=== PATIENT | female | born 1955 ===

== ENCOUNTER 2019-05-21 19:58 | Inpatient (IN) | payer MEDICARE, SELFPAY | END 2019-05-27 13:40 | disposition home or self-care (01) | DRG 872 | PROVIDERS: Admitting Provider Internal Medicine; Emergency Provider Emergency Medicine; PCP Internal Medicine; Visit Provider Internal Medicine | DX: A40.3 Sepsis due to Streptococcus pneumoniae (principal); N17.9 Acute kidney failure, unspecified; N39.0 Urinary tract infection, site not specified; D72.829 Elevated white blood cell count, unspecified; E11.9 Type 2 diabetes mellitus without complications; I10 Essential (primary) hypertension; E86.0 Dehydration; E78.5 Hyperlipidemia, unspecified; E66.9 Obesity, unspecified; E55.9 Vitamin D deficiency, unspecified; Z23 Encounter for immunization; Z86.73 Personal history of transient ischemic attack (TIA), and cerebral infarction without residual deficits; Z87.891 Personal history of nicotine dependence; Z79.02 Long term (current) use of antithrombotics/antiplatelets; Z68.32 Body mass index [BMI] 32.0-32.9, adult | CPT/HCPCS: 36415; 51701; 71046; 80048; 80053; 80202; 81001; 82565; 83036; 83605; 83735; 84132; 85025; 85610; 85730; 87040; 87077; 87086; 87088; 87186; 90471; 90732; 93306; 96361; 96365; 96375; 97110; 97116; 97161; 97165; 97535; 99285; A9270; G0009; J0131; J0696; J1815; J1956; J3370; J3475; J7030 ==

== ENCOUNTER 2024-06-17 20:29 | Inpatient (IN) | payer MEDICARE, SELFPAY ==
[2024-06-17] VITALS (14 sets, daily range): BP systolic 167–230; BP diastolic 47–73; PULSE 43–99; RESP 14–22; TEMP 36.6; O2SAT 100
--- NOTE | ~2024-06-17 | XR_ITS ---
XR chest 1V portable Ordering provider: Tanvir Kaminski History: 69 years Female with . Complete heart block . Comparison: None. FINDINGS: MEDIASTINUM: The cardiac silhouette is slightly enlarged. LUNGS: No infiltrates, effusions or pneumothorax. Slightly prominent bronchovascular markings in the lower lobes. Atelectatic changes is not excluded. OTHER: No free air under the diaphragm. IMPRESSION: No definite acute cardiopulmonary pathology. Reviewed, dictated and finalized at location A. ORT ASSOCIATE
--- NOTE | ~2024-06-17 | XR_ITS ---
EXAMINATION: XR chest 2V DATE: 06/20/2024 09:34 INDICATION: 24 hour post pacemaker insertion TECHNIQUE: frontal and lateral views of the chest were obtained. COMPARISON: Chest radiograph dated 06/19/2024 FINDINGS: Hyperexpansion of lungs with increased retrosternal clear space and flattening of the diaphragm consi stent with emphysema which is confirmed on review of carotid CT angiogram images dated 12/23/2014. No focal airspace opacities, pulmonary edema, pleural effusion or pneumothorax. The cardiomediastinal si lhouette is normal. Dual lead pacemakerperipheral IV at the distal left upper arm. seen with leads pr ojecting over the expected locations of the right atrium and right ventricle. Moderate to severe thor acic spondylosis. Plain screw fixation at the distal left radius. IMPRESSION: 1. Emphysema. No acute cardiopulmonary disease. Reviewed, dictated and finalized at location B. [facility]
--- NOTE | ~2024-06-17 | XR_ITS ---
EXAMINATION: XR chest 1V portable DATE: 06/19/2024 09:02 INDICATION: Pacemaker insertion TECHNIQUE: frontal view of the chest was obtained. COMPARISON: Chest radiograph dated 06/18/2024 FINDINGS: There is mild eventration along the diaphragm on both the left and right. No focal airspace opacities , pulmonary edema, pleural effusion or pneumothorax. The cardiomediastinal silhouette is normal. Dual lead pacemaker seen with leads projecting over the expected locations of the right atrium and right ventricle. IMPRESSION: 1. Expected appearance of a dual-lead cardiac pacemaker. No acute cardiopulmonary disease. Reviewed, dictated and finalized at location B. UNTS RECEIVABLE ASSISTANT IMPRESSION: 1. Expected appearance of a dual-lead cardiac pacemaker. No acute cardiopulmona ry disease.
[2024-06-17 21:30] LABS: Basophils Percent Auto 0.2 % (0.2-1.2); Eosinophils Absolute Auto 0.1 K/mm3 (0-0.3); Hematocrit 37.6 % (37.0-47.0); Hemoglobin 12.9 g/dL (12.0-15.0); Immature Granulocyte Absolute 0.02 K/mm3 (0.00-0.031); Immature Granulocyte Percent A 0.3 % (0-0.5); Lymphocytes Absolute Auto 2.36 K/mm3 (0.9-3.2); Lymphocytes Percent Auto 38.9 % (18.3-44.2); Mean Corpuscular HGB Conc 34.3 g/dl (32-36); Mean Corpuscular Hemoglobin 30.9 pg (26-34); Mean Corpuscular Volume 90.2 fl (80-100); Mean Platelet Volume 9.6 fl (7.4-10.4); Monocytes Absolute Auto 0.6 K/mm3 (0.1-0.6); Monocytes Percent Auto 10.6 % (2.6-8.5); Platelet Count Result 264 k/mm3 (150-375); Red Blood Count 4.17 M/mm3 (4.2-5.4); Red Cell Distribution Width 15.4 % (11.5-14.5); White Blood Count 6.1 K/mm3 (4.5-10.0)
[2024-06-17 21:41] LABS: Alanine Aminotransferase 15 U/L (6-35); Albumin Level 4.1 g/dL (3.5-5.1); Alkaline Phosphatase 93 U/L (38-126); Anion Gap 4 mmol/L (4-12); Aspartate Amino Transferase 26 U/L (14-36); Bilirubin,Total 0.7 mg/dL (0.2-1.3); Blood Urea Nitrogen 18 mg/dL (7-17); Calcium 9.7 mg/dL (8.4-10.2); Carbon Dioxide 29 mmol/L (22-30); Chloride 103 mmol/L (98-107); Estimated Glomerular Filt Rate 55; Glucose 126 mg/dL (65-110); Magnesium 1.6 mg/dL (1.6-2.3); Potassium 3.9 mmol/L (3.4-5.0); Sodium 136 mmol/L (137-145)
--- NOTE | 2024-06-17 22:04 | ECG_ITS ---
Test Date: 2024-06-17 22:12:19 Measurements Intervals [place] Rate: 41 P: 0 IL: 0 QRS: 25 QRSD: 86 T: 45 QT: 498 QTc: 415 Interpretive Statements SINUS RHYTHM WITH COMPLETE HEART BLOCK JUNCTIONAL ESCAPE RHYTHM DELAYED PRECORDIAL R/S TRANSITION BASELINE ARTIFACT- I, II, AVR, AVL, AVF ABNORMAL ECG No previous ECG available for comparison Electronically Signed On 06-18-2024 05:55:34 BUDGET AND POLICY ANALYST by Lito Sanon D.O.
--- NOTE | 2024-06-17 22:29 | PC.NURSE ---
pt has crash cart bedside and pads applied to pt.
--- NOTE | 2024-06-17 22:35 | ED_ITS ---
HPI - General Adult General Chief complaint: Recheck/Abnormal Lab/Rx Stated complaint: hypertension Time Seen by Provider: 06/17/24 21:10 History of Present Illness HPI narrative: Patient is a 69 year old patient who presents to the emergency department this evening due to concern for an elevated blood pressure. Patient states that she has some despite her numbers prompted her to come to the emergency department with a notice that her blood pressure was elevated. She is currently denying any chest pain, shortness of breath, any headaches, focal weakness, dizziness, blurry visions, numbness and/or tingling. Patient admits that she has been on a blood pressure medications for a long time but seems as though it was not controlling her blood pressure so she was started on another blood pressure medication yesterday amlodipine. Patient admits to a history of hypertension, hyperlipidemia, diabetes mellitus and a previous stroke with no residual deficits. Related Data Home Medications Medication Instructions Recorded Confirmed amlodipine 2.5 mg tablet 2.5 mg PO DAILY 06/18/24 06/18/24 atorvastatin 20 mg tablet 20 mg PO DAILY 06/18/24 06/18/24 chlorthalidone 25 mg tablet 25 mg PO DAILY 06/18/24 06/18/24 clopidogrel 75 mg tablet 75 mg PO DAILY 06/18/24 06/18/24 empagliflozin 10 mg tablet 10 mg PO DAILY 06/18/24 06/18/24 (Jardiance) ramipril 10 mg capsule 10 mg PO DAILY 06/18/24 06/18/24 Allergies Allergy/AdvReac Type Severity Reaction Status Date / Time aspirin Allergy Unknown Anaphylaxis Verified 06/18/24 00:37 codeine Allergy Unknown Anaphylaxis Verified 06/18/24 00:37 latex Allergy Unknown Anaphylaxis Verified 06/18/24 00:37 Penicillins Allergy Unknown Anaphylaxis Verified 06/18/24 00:37 Review of Systems Review of Systems: All systems are reviewed and are negative unless stated otherwise in the HPI. [facility] Family History Family History (Updated 06/18/24 @ 00:28 by Tracy Winston RN) Father Hypertension Cerebrovascular accident History of blood clots Sibling Diabetes mellitus Seizure History of blood clots Mother Colon cancer Social History Social History Smoking packs per day: 0.5 Smoking cigarettes per day: 10.0 Years smoked: 50 Smoking pack-years: 25.00 Smoking status: Current every day smoker Tobacco type: cigarettes Alcohol intake: current Substance use type: marijuana Do You Feel Safe in your Home?: Yes Lack of Transportation: No Lack of Food: Never True Current Housing: I Have Housing Concerned About Future Housing: No Difficulty Paying Gas/Electric Bills: No Difficulty Paying for Meds: No Currently Unemployed: No Education: High School Diploma/GED Difficulty w/ Childcare or Family Care: No Spiritual care concerns: No Exam Narrative: General: Alert, awake, afebrile, in no acute distress. HEENT: PERRL, no rhinorrhea, no post nasal drip, oropharynx clear. Neck: Trachea midline, no JVD, no lymphadenopathy. Cardiovascular: Bradycardic with 3rd degree AV block, no murmurs, rubs or gallops, no peripheral edema. Respiratory: Clear to auscultation bilaterally, no tachypnea, no wheezing, no rhonchi, no rubs, no respiratory distress. Abdomen: Soft, nontender, nondistended, no rebound, no guarding, no peritoneal signs. Musculoskeletal: No joint swelling or deformity, normal muscle tone. Skin: No rashes or petechia, no signs of infection. Psychiatric: Alert and oriented, normal behavior and judgment for situation. Neurological: Alert and oriented to person, place, and time. Follows all commands. No focal deficits, speech is clear and fluent. Course Vital Signs Vital signs: Vital Signs Temperature 97.9 F 06/17/24 20:33 Pulse Rate 46 L 06/17/24 20:33 Respiratory Rate 15 06/17/24 20:33 Blood Pressure 187/57 H 06/17/24 20:33 Pulse Oximetry 100 06/17/24 20:33 Oxygen Delivery Room Air 06/17/24 20:33 Temperature 97.9 F 06/17/24 20:33 Pulse Rate 46 L 06/18/24 00:40 Respiratory Rate 20 06/18/24 00:35 Blood Pressure 184/51 H 06/18/24 00:35 Pulse Oximetry 100 06/18/24 00:35 Oxygen Delivery Room Air 06/17/24 20:33 Medical Decision Making MDM Narrative Medical decision making narrative: The patient was evaluated by myself in the emergency department. History is obtained from patient who is an independent historian along with family members present at bedside and physical exam was performed. External medical records were reviewed at this time. IV was established and pertinent tests were ordered. Patient was administered 20 mg IV hydralazine for an elevated blood pressure. Patient did get nauseous after the IV hydralazine and did have 1 episode of vomiting and was administered 4 mg IV Zofran. On repeat assessment of the patient, patient states that she feels great, denies any current nausea vomiting or abdominal pain, denies any chest pain or shortness of breath, and continues to deny any lightheadedness, dizziness or any symptoms. EKG was obtained which revealed a third-degree AV block at a rate of 41 beats per minute. EKG was independently interpreted by me and is currently pending official cardiology read. Pacer pads were placed on patient at this time. Case was discussed with the on-call reinsurance claims analyst Dr. Ley at 2248 and given that the patient is asymptomatic and hemodynamically stable she does not need an emergent temporary pacemaker. Patient will be made NPO at midnight per her request. Family members present at bedside were updated regarding patient's high-grade AV block. Laboratory results obtained revealing no acute process. Differential diagnosis considerations include hypertensive urgency versus emergency, Comorbidities impacting this visit include history of hypertension diabetes and hyperlipidemia. I have evaluated and discussed social determinants of health with the patient that could potentially impact subsequent diagnosis and treatment plans. On repeat assessment of the patient, reevaluation revealed that the patient is doing well and is in no acute distress. Patient symptoms have remained stable since she arrived to our emergency department. Repeat vital signs were all reviewed and noted to be stable. Differential diagnosis and treatment plan were discussed with the patient at bedside. Patient agrees with discussion and after shared medical decision making agrees with admission. All questions were answered to the patient's satisfaction. Case was discussed with the on-call hospitalist Dr. Calvo who had accepted admission to our IMU. Patient was admitted in stable condition. Vital Signs Vital Signs: Vital Signs Temperature 97.9 F 06/17/24 20:33 Pulse Rate 46 L 06/17/24 20:33 Respiratory Rate 15 06/17/24 20:33 Blood Pressure 187/57 H 06/17/24 20:33 Pulse Oximetry 100 06/17/24 20:33 Oxygen Delivery Room Air 06/17/24 20:33 Temperature 97.9 F 06/17/24 20:33 Pulse Rate 46 L 06/18/24 00:40 Respiratory Rate 20 06/18/24 00:35 Blood Pressure 184/51 H 06/18/24 00:35 Pulse Oximetry 100 06/18/24 00:35 Oxygen Delivery Room Air 06/17/24 20:33 Lab Data 06/17/24 21:24 06/17/24 21:24 Labs: Lab Results 06/17/24 06/17/24 06/17/24 Range/Units 19:55 21:24 21:24 WBC 6.1 (4.5-10.0) K/mm3 RBC 4.17 L (4.2-5.4) M/mm3 Hgb 12.9 (12.0-15.0) g/dL Hct 37.6 (37.0-47.0) % MCV 90.2 (80-100) fl MCH 30.9 (26-34) pg MCHC 34.3 (32-36) g/dl RDW 15.4 H (11.5-14.5) % Plt Count 264 (150-375) k/mm3 MPV 9.6 (7.4-10.4) fl Immature Gran % (Auto) 0.3 (0-0.5) % Neut % (Auto) 49.0 (45.5-73.1) % Lymph % (Auto) 38.9 (18.3-44.2) % Sunflower % (Auto) 10.6 H (2.6-8.5) % Eos % (Auto) 1.0 (0-4.4) % Baso % (Auto) 0.2 (0.2-1.2) % Lymph # (Auto) 2.36 (0.9-3.2) K/mm3 Sunflower # (Auto) 0.6 (0.1-0.6) K/mm3 Eos # (Auto) 0.1 (0-0.3) K/mm3 Baso # (Auto) 0.0 (0.0-0.1) K/mm3 Abs Immat Gran (auto) 0.02 (0.00-0.031) K/mm3 Absolute Neuts (auto) 3.0 (1.3-6.7) K/mm3 Absolute Nucleated RBC 0.000 (0.0-0.012) K/mm3 Nucleated RBC % 0.0 (0.0-0.2) % PT 13.6 (11.1-14.7) Seconds INR 1.0 APTT 29.5 (22.3-36.8) Seconds Sodium 136 L (137-145) mmol/L Potassium 3.9 (3.4-5.0) mmol/L Chloride 103 (98-107) mmol/L Carbon Dioxide 29 (22-30) mmol/L Anion Gap 4 (4-12) mmol/L BUN 18 H (7-17) mg/dL Creatinine 1.00 (0.7-1.0) mg/dL Estim Creat Clear Calc Not Reportable Estimated GFR 55 L (59 - ) Glucose 126 H (65-110) mg/dL Calcium 9.7 (8.4-10.2) mg/dL Magnesium 1.6 Cancelled (1.6-2.3) mg/dL Total Bilirubin 0.7 (0.2-1.3) mg/dL AST 26 (14-36) U/L ALT 15 (6-35) U/L Alkaline Phosphatase 93 (38-126) U/L Troponin I (0.000-0.034) ng/mL Total Protein 8.0 (6.3-8.2) g/dL Albumin 4.1 (3.5-5.1) g/dL 06/17/24 Range/Units 22:14 WBC (4.5-10.0) K/mm3 RBC (4.2-5.4) M/mm3 Hgb (12.0-15.0) g/dL Hct (37.0-47.0) % MCV (80-100) fl MCH (26-34) pg MCHC (32-36) g/dl RDW (11.5-14.5) % Plt Count (150-375) k/mm3 MPV (7.4-10.4) fl Immature Gran % (Auto) (0-0.5) % Neut % (Auto) (45.5-73.1) % Lymph % (Auto) (18.3-44.2) % Sunflower % (Auto) (2.6-8.5) % Eos % (Auto) (0-4.4) % Baso % (Auto) (0.2-1.2) % Lymph # (Auto) (0.9-3.2) K/mm3 Sunflower # (Auto) (0.1-0.6) K/mm3 Eos # (Auto) (0-0.3) K/mm3 Baso # (Auto) (0.0-0.1) K/mm3 Abs Immat Gran (auto) (0.00-0.031) K/mm3 Absolute Neuts (auto) (1.3-6.7) K/mm3 Absolute Nucleated RBC (0.0-0.012) K/mm3 Nucleated RBC % (0.0-0.2) % PT (11.1-14.7) Seconds INR APTT (22.3-36.8) Seconds Sodium (137-145) mmol/L Potassium (3.4-5.0) mmol/L Chloride (98-107) mmol/L Carbon Dioxide (22-30) mmol/L Anion Gap (4-12) mmol/L BUN (7-17) mg/dL Creatinine (0.7-1.0) mg/dL Estim Creat Clear Calc Estimated GFR (59 - ) Glucose (65-110) mg/dL Calcium (8.4-10.2) mg/dL Magnesium (1.6-2.3) mg/dL Total Bilirubin (0.2-1.3) mg/dL AST (14-36) U/L ALT (6-35) U/L Alkaline Phosphatase (38-126) U/L Troponin I < 0.012 (0.000-0.034) ng/mL Total Protein (6.3-8.2) g/dL Albumin (3.5-5.1) g/dL Discharge Plan Discharge Clinical Impression: Heart block AV third degree, Hypertensive urgency Patient Disposition: Still a Patient Condition: Improved Time of Disposition: 23:38
[2024-06-17 22:40] LABS: Prothrombin Time 13.6 Seconds (11.1-14.7)
[2024-06-17 22:41] LABS: Partial Thromboplastin Time 29.5 Seconds (22.3-36.8)
[2024-06-17 22:59] LABS: Troponin I < 0.012 ng/mL (0.000-0.034)
[2024-06-17] MEDS: hydrALAZINE HCL 20 MG/ML VIAL IV PUSH (23:14)
[2024-06-18] VITALS (24 sets, daily range): BP systolic 135–212; BP diastolic 47–89; PULSE 41–93; RESP 16–20; TEMP 36.6–37; O2SAT 95–100; BMI 19.8; BMI 25.2; BMI 24.7
--- NOTE | 2024-06-18 | ECHO_ITS ---
Patient Info Name: Filomena Nunez Age: 69 years : 1955 Gender: Female Ht: 57 in Wt: 114 lbs BSA: 1.46 m2 HR: 45 bpm BP: 135 / 47 mmHg Technical Quality: Fair Exam Date: 06/18/2024 10:17 AM Exam Location: Echo Lab Patient Status: Outpatient Admit Date: 06/18/2024 Staff Ordering Physician: Tanvir Kaminski MD Professor Of Theater: Helen Burgess RDCS Attending Provider: Kamlesh Calvo MD Referring Physician: Gordy SWANN; Exam Type: CA echo doppler color flow Study Info Indications - complete heart block Complete two-dimensional, color flow and Doppler transthoracic echocardiogram is performed. Summary 1. Complete two-dimensional, color flow and Doppler transthoracic echocardiogram is performed. 2. Left ventricular systolic function is hyperdynamic with an estimated ejection fraction of 65-70%. 3. Left ventricular chamber dimension is borderlie enlarged. 4. Right ventricular chamber dimension is normal. 5. Right ventricular systolic function is normal. 6. There is mild aortic valve stenosis with a peak velocity of 274 cm/s, mean gradient of 14 mmHg, and aortic valve area of 1.6 cm2. 7. Mild-moderate aortic valve calcification. 8. There is trace tricuspid valve regurgitation. 9. No pulmonary hypertension, estimated pulmonary arterial systolic pressure is 30 mmHg. 10. There is mild pulmonic regurgitation. Left Ventricle Left ventricular chamber dimension is borderlie enlarged. Left ventricular wall thickness is normal. Left ventricular systolic function is hyperdynamic with an estimated ejection fraction of 65-70%. Right Ventricle Right ventricular chamber dimension is normal. Right ventricular systolic function is normal. Left Atria Left atrial chamber dimension is normal. Right Atria Right atrial chamber dimension is normal. Aortic Valve Mild-moderate aortic valve calcification. There is mild aortic valve stenosis with a peak velocity of 274 cm/s, mean gradient of 14 mmHg, and aortic valve area of 1.6 cm2. Pulmonic Valve There is mild pulmonic regurgitation. Mitral Valve There is no mitral valve regurgitation. Mild annular calcification. Tricuspid Valve There is trace tricuspid valve regurgitation. No pulmonary hypertension, estimated pulmonary arterial systolic pressure is 30 mmHg. Pericardium/Pleural There is no pericardial effusion. Inferior Vena Cava Normal inferior vena cava with <50% collapse upon inspiration consistent with normal right atrial pressure, 5 mmHg. Aorta The aortic root size at the sinus of Valsalva is normal. The prox ascending aorta size is normal. Left Ventricular Outflow Tract Name Value Normal LVOT 2D LVOT Diameter 2.0 cm LVOT Doppler LVOT Peak Gradient 7 mmHg LVOT Mean Gradient 3 mmHg LVOT VTI 30 cm LVOT VTI/AV VTI Ratio 0.5 LVOT Stroke Volume 92 ml LVOT CO 3.7 l/min LVOT CI 2.6 l/min/m2 Pulmonic Valve Name Value Normal PV Doppler PV Peak Gradient 5 mmHg PV Regurgitation Doppler SD Peak End Diastolic Velocity 115 cm/s Mitral Valve Name Value Normal MV Doppler MV Decel [place] 334 cm/s2 MV PHT 100 ms MV Area (PHT) 2.2 cm2 4.0-5.0 MV Diastolic Function MV E Peak Velocity 115 cm/s MV A Peak Velocity 129 cm/s MV E/A 0.9 MV Decel Time 345 ms Tricuspid Valve Name Value Normal TV Regurgitation Doppler TR Peak Velocity 255 cm/s TR Peak Gradient 25 mmHg Estimated PAP/RSVP RA Pressure 5 mmHg <=5 PA Systolic Pressure 30 mmHg <36 RV Systolic Pressure 31 mmHg <36 Aorta Name Value Normal Ascending Aorta Ao Root Diameter (MM) 2.7 cm Ao Root Diam Index (MM) 1.8 cm/m2 Aortic Valve Name Value Normal AV Doppler AV Peak Velocity 274 cm/s AV Peak Gradient 30 mmHg AV Mean Gradient 14 mmHg AV VTI 58 cm AV Area (Cont Eq VTI) 1.6 cm2 >=3.0 AV Area (Cont Eq Chaka) 1.6 cm2 AV Regurgitation 2D LVOT Area 3.1 cm2 Ventricles Name Value Normal LV Dimensions 2D/MM IVS Diastolic Thickness (2D) 0.9 cm 0.6-1.0 IVS Diastole Thickness (MM) 0.8 cm 0.6-0.9 LVID Diastole (2D) 3.7 cm 3.8-5.2 LVID Diastole (MM) 5.3 cm 3.8-5.2 LVIW Diastolic Thickness (2D) 1.0 cm 0.6-0.9 LVIW Diastolic Thickness (MM) 0.9 cm 0.6-0.9 LVID Systole (2D) 2.0 cm 2.2-3.5 LVID Systole (MM) 2.9 cm 2.2-3.5 LVOT Diameter 2.0 cm LV Mass (2D Cubed) 104.14 g 67.00-162.00 LV Mass Index (2D Cubed) 72 g/m2 43-95 Relative Wall Thickness (2D) 0.56 LV Mass (MM Cubed) 160.95 g 67.00-162.00 LV Mass Index (MM Cubed) 111 g/m2 43-95 Relative Wall Thickness (MM) 0.34 LV Fractional Shortening/Ejection Fraction 2D/MM LV Fractional Shortening (2D) 45 % 27-45 LV Fractional Shortening (MM) 46 % 27-45 LV EF (MM Teicholz) 77 % 54-74 LV EF (2D Teicholz) 77 % 54-74 LV Diastolic Volume (4C MOD) 66 ml LV EF (4C MOD) 67 % LV Diastolic Volume (2C MOD) 63 ml LV EF (2C MOD) 70 % LV Diastolic Volume (BP MOD) 65 ml 46-106 LV Diastolic Volume Index (BP MOD) 44 ml/m2 29-61 LV Systolic Volume (BP MOD) 20 ml 14-42 LV Systolic Volume Index (BP MOD) 14 ml/m2 8-24 LV EF (BP MOD) 69 % 54-74 LV Diastolic Length (4C) 7.3 cm LV Systolic Length (4C) 6.0 cm LV Stroke Volume (4C MOD) 44 ml Atria Name Value Normal LA Dimensions LA Dimension (MM) 3.7 cm 2.7-3.8 LA Volume (4C A-L) 40 ml LA Volume (BP A-L) 42 ml RA Dimensions RA Area (4C) 12.6 cm2 <=18.0 Report Signatures
[2024-06-18] MEDS: ONDANSETRON INJ 4 MG/2 ML VIAL IV PUSH (00:14)
--- NOTE | 2024-06-18 07:51 | P.CONCA_ITS ---
Assessment and Plan Assessment and plan (1) Heart block AV third degree: Code(s): I44.2 - Atrioventricular block, complete Status: Acute Plan 69-year-old lady with hypertension and diabetes presenting with complaints of hypertension and found to be in acquired complete heart block which appears to be asymptomatic. She is taking no medication that would influence AV node physiology and so a permanent pacemaker is indicated for acquired complete heart block despite lack of symptoms this is a class 1 indication for pacing. Will arrange for this procedure to be done later today. the procedure done details as well as the risk including infection, hemorrhage, pneumothorax, hemothorax and hemopericardium were discussed in detail. Tanvir Kaminski MD [facility] History of Present Illness History of Present Illness Consult date/time: 06/18/24 07:51 Reason For Visit: Third-degree AV block, Hypertension Narrative: this is a 69-year-old woman I am seeing at the request of the hospitalist today because of complete heart block. She is unknown to me prior to this cons ultation. The patient is says she is not known to have any cardiac problems and came to the emergency room here last evening because she was concerned about high blood pressure. She has a history of hypertension and diabetes and receives her medical care in [place]. There is no evidence she has been hospitalized or treated here at [facility] for anything in the past. She was found in the emergency room to be somewhat hypertensive but also to be bradycardic and in complete heart block. Her ECG shows sinus rhythm with third- degree AV block and a narrow QRS escape rhythm with no pauses being identified. She was admitted to telemetry and with the rhythm has been unchanged through the course of the evening. She is comfortable and asymptomatic this morning. She denies any history of syncope or presyncope or any decline in her ability to perform physical activities. She lives with her son in [place] and does not exercise regularly but she does not feel that her ability to perform activities has declined all. she takes amlodipine and ramipril for her hypertension as well as chlorthalidone there is no medication that would affect AV node function. She takes clopidogrel for reasons that are not stated Review of Systems Constitutional: Constitutional: Reports no additional constitutional complaints Eyes: Eyes: Reports no additional eye complaints ENT: Reports system reviewed and no additional complaints, except as documented Cardiovascular: Cardiovascular: Reports no additional cardiovascular complaints Respiratory: Respiratory: Reports no additional respiratory complaints Gastrointestinal: Gastrointestinal: Reports no additional gastrointestinal complaints Musculoskeletal: Musculoskeletal: Reports no additional musculoskeletal complaints Integumentary/Breasts: Skin/Breast: Reports system reviewed and no additional complaints, except as docu Neurologic: Reports system reviewed and no additional complaints, except as documented Endocrine: Endocrine: Reports no additional endocrine complaints Hematologic/Lymphatic: Hematologic/Lymphatic: Reports no additional hematologic/lymphatic complaints Allergic/Immunologic: Allergic/Immunologic: Reports no additional allergic/immunologic complaints PMFSH Family History Family History (Updated 06/18/24 @ 00:28 by Tracy Winston RN) Father Hypertension Cerebrovascular accident History of blood clots Sibling Diabetes mellitus Seizure History of blood clots Mother Colon cancer Social History Social History Smoking packs per day: 0.5 Smoking cigarettes per day: 10.0 Years smoked: 50 Smoking pack-years: 25.00 Smoking status: Current every day smoker Tobacco type: cigarettes Alcohol intake: current Substance use type: marijuana Do You Feel Safe in your Home?: Yes Lack of Transportation: No Lack of Food: Never True Current Housing: I Have Housing Concerned About Future Housing: No Difficulty Paying Gas/Electric Bills: No Difficulty Paying for Meds: No Currently Unemployed: No Education: High School Diploma/GED Difficulty w/ Childcare or Family Care: No Spiritual care concerns: No Meds Home Medications and Allergies Home Medications Medication Instructions Recorded Confirmed Type amlodipine 2.5 mg tablet 2.5 mg PO DAILY 06/18/24 06/18/24 History atorvastatin 20 mg tablet 20 mg PO DAILY 06/18/24 06/18/24 History chlorthalidone 25 mg tablet 25 mg PO DAILY 06/18/24 06/18/24 History clopidogrel 75 mg tablet 75 mg PO DAILY 06/18/24 06/18/24 History empagliflozin 10 mg tablet 10 mg PO DAILY 06/18/24 06/18/24 History (Jardiance) ramipril 10 mg capsule 10 mg PO DAILY 06/18/24 06/18/24 History Allergies Allergy/AdvReac Type Severity Reaction Status Date / Time aspirin Allergy Unknown Anaphylaxis Verified 06/18/24 00:37 codeine Allergy Unknown Anaphylaxis Verified 06/18/24 00:37 latex Allergy Unknown Anaphylaxis Verified 06/18/24 00:37 Penicillins Allergy Unknown Anaphylaxis Verified 06/18/24 00:37 Vital Signs Vital Signs - 24 hr 06/17/24 20:33 06/17/24 21:48 06/17/24 22:00 Temperature 36.6 C Pulse Rate 46 L 45 L 44 L Respiratory Rate 15 14 17 Blood Pressure 187/57 H 206/73 H 230/65 H Pulse Oximetry 100 100 100 Oxygen Delivery Room Air 06/17/24 22:45 06/17/24 22:48 06/17/24 22:49 Temperature Pulse Rate 43 L 45 L 85 Respiratory Rate 14 17 20 Blood Pressure 199/62 H 200/72 H Pulse Oximetry 100 100 100 Oxygen Delivery 06/17/24 23:12 06/17/24 23:25 06/17/24 23:30 Temperature Pulse Rate 71 88 87 Respiratory Rate 18 20 22 H Blood Pressure Pulse Oximetry 100 100 100 Oxygen Delivery 06/17/24 23:32 06/17/24 23:45 06/17/24 23:47 Temperature Pulse Rate 76 46 L 87 Respiratory Rate 19 16 16 Blood Pressure 218/47 H 182/66 H Pulse Oximetry 100 100 100 Oxygen Delivery 06/17/24 23:52 06/17/24 23:57 06/18/24 00:05 Temperature Pulse Rate 84 99 93 Respiratory Rate 16 17 18 Blood Pressure 181/57 H 167/59 H Pulse Oximetry 100 100 100 Oxygen Delivery 06/18/24 00:07 06/18/24 00:13 06/18/24 00:24 Temperature Pulse Rate 90 75 Respiratory Rate 18 20 Blood Pressure 164/55 H 212/89 H 184/51 H Pulse Oximetry 100 Oxygen Delivery 06/18/24 00:35 06/18/24 01:22 06/18/24 01:23 Temperature 36.6 C Pulse Rate 46 L 71 55 L Respiratory Rate 20 20 Blood Pressure 184/51 H 166/54 H Pulse Oximetry 100 Oxygen Delivery 06/18/24 02:00 06/18/24 04:00 06/18/24 04:00 Temperature Pulse Rate 45 L 45 L 45 L Respiratory Rate 20 Blood Pressure Pulse Oximetry 100 Oxygen Delivery Room Air 06/18/24 05:04 06/18/24 06:00 06/18/24 07:37 Temperature 36.6 C 37.0 C Pulse Rate 76 45 L 76 Respiratory Rate 20 20 Blood Pressure 135/47 L 152/61 H Pulse Oximetry 95 98 Oxygen Delivery 06/18/24 00:40 Temperature Pulse Rate 46 L Respiratory Rate Blood Pressure Pulse Oximetry Oxygen Delivery Exam Const: Other: above pleasant black female appearing about her stated age no distress at this time HENMT: Mouth: Yes moist mucous membranes Eyes: Sclera: sclerae normal Neck: Neck: supple and no JVD Resp: Effort & Inspection: normal respiratory effort Auscultation: clear to auscultation bilaterally Cardio: Rate: bradycardic Rhythm: regular rhythm GI: GI Palp: Yes Soft to palpation Auscultation: normal bowel sounds Skin: General skin exam: normal color Neuro: Other: alert and oriented x3 Extrem: General: normal to inspection Results Labs and Meds 06/17/24 21:24 06/17/24 21:24 Lab results: Cardiac Enzymes 06/17/24 06/17/24 Range/Units 21:24 22:14 AST 26 (14-36) U/L Troponin I < 0.012 (0.000-0.034) ng/mL Coagulation 06/17/24 Range/Units 19:55 PT 13.6 (11.1-14.7) Seconds APTT 29.5 (22.3-36.8) Seconds CBC 06/17/24 Range/Units 21:24 WBC 6.1 (4.5-10.0) K/mm3 RBC 4.17 L (4.2-5.4) M/mm3 Hgb 12.9 (12.0-15.0) g/dL Hct 37.6 (37.0-47.0) % Plt Count 264 (150-375) k/mm3 Lymph # (Auto) 2.36 (0.9-3.2) K/mm3 Real # (Auto) 0.6 (0.1-0.6) K/mm3 Eos # (Auto) 0.1 (0-0.3) K/mm3 Baso # (Auto) 0.0 (0.0-0.1) K/mm3 Comprehensive Metabolic Panel 06/17/24 Range/Units 21:24 Sodium 136 L (137-145) mmol/L Potassium 3.9 (3.4-5.0) mmol/L Chloride 103 (98-107) mmol/L Carbon Dioxide 29 (22-30) mmol/L BUN 18 H (7-17) mg/dL Creatinine 1.00 (0.7-1.0) mg/dL Glucose 126 H (65-110) mg/dL Calcium 9.7 (8.4-10.2) mg/dL AST 26 (14-36) U/L ALT 15 (6-35) U/L Alkaline Phosphatase 93 (38-126) U/L Total Protein 8.0 (6.3-8.2) g/dL Albumin 4.1 (3.5-5.1) g/dL Intake and Output 06/17/24 06/17/24 06/18/24 15:59 23:59 07:59 Other: Intake, Other Source NPO # Unmeasured Voids 2 Patient Weight 06/18/24 23:59 Weight 51.9 kg
--- NOTE | 2024-06-18 18:44 | PM.IMHP ---
H&P: HPI History of Present Illness Date/Time: 06/18/24 18:44 Chief Complaint: Uncontrolled hypertension Narrative: ER-HPI narrative: Patient is a 69 year old patient who presents to the emergency department this evening due to concern for an elevated blood pressure. Patient states that she has some despite her numbers prompted her to come to the emergency department with a notice that her blood pressure was elevated. She is currently denying any chest pain, shortness of breath, any headaches, focal weakness, dizziness, blurry visions, numbness and/or tingling. Patient admits that she has been on a blood pressure medications for a long time but seems as though it was not controlling her blood pressure so she was started on another blood pressure medication yesterday amlodipine. Patient admits to a history of hypertension, hyperlipidemia, diabetes mellitus and a previous stroke with no residual deficits. Patient was seen by dean of admissions and suspect patient had complete heart block and clinically patient is asymptomatic recommended placement of pacemaker which is scheduled for tomorrow, patient denies any chest pain shortness of breath or dizziness, her son is present in the room. Review of Systems Constitutional: Constitutional: Reports no additional constitutional complaints Eyes: Eyes: Reports no additional eye complaints ENT: Reports system reviewed and no additional complaints, except as documented Cardiovascular: Cardiovascular: Reports no additional cardiovascular complaints Respiratory: Respiratory: Reports no additional respiratory complaints Gastrointestinal: Gastrointestinal: Reports no additional gastrointestinal complaints Musculoskeletal: Musculoskeletal: Reports no additional musculoskeletal complaints Integumentary/Breasts: Skin/Breast: Reports system reviewed and no additional complaints, except as docu Neurologic: Reports system reviewed and no additional complaints, except as documented Endocrine: Endocrine: Reports no additional endocrine complaints Hematologic/Lymphatic: Hematologic/Lymphatic: Reports no additional hematologic/lymphatic complaints Allergic/Immunologic: Allergic/Immunologic: Reports no additional allergic/immunologic complaints [facility] Family History Family History (Updated 06/18/24 @ 00:28 by Tracy Winston RN) Father Hypertension Cerebrovascular accident History of blood clots Sibling Diabetes mellitus Seizure History of blood clots Mother Colon cancer Social History Social History Smoking packs per day: 0.5 Smoking cigarettes per day: 10.0 Years smoked: 50 Smoking pack-years: 25.00 Smoking status: Current every day smoker Tobacco type: cigarettes Alcohol intake: current Substance use type: marijuana Do You Feel Safe in your Home?: Yes Lack of Transportation: No Lack of Food: Never True Current Housing: I Have Housing Concerned About Future Housing: No Difficulty Paying Gas/Electric Bills: No Difficulty Paying for Meds: No Currently Unemployed: No Education: High School Diploma/GED Difficulty w/ Childcare or Family Care: No Spiritual care concerns: No Meds Home Medications and Allergies Home Medications Medication Instructions Recorded Confirmed Type amlodipine 2.5 mg tablet 2.5 mg PO DAILY 06/18/24 06/18/24 History atorvastatin 20 mg tablet 20 mg PO DAILY 06/18/24 06/18/24 History chlorthalidone 25 mg tablet 25 mg PO DAILY 06/18/24 06/18/24 History clopidogrel 75 mg tablet 75 mg PO DAILY 06/18/24 06/18/24 History empagliflozin 10 mg tablet 10 mg PO DAILY 06/18/24 06/18/24 History (Jardiance) ramipril 10 mg capsule 10 mg PO DAILY 06/18/24 06/18/24 History Allergies Allergy/AdvReac Type Severity Reaction Status Date / Time aspirin Allergy Unknown Anaphylaxis Verified 06/18/24 00:37 codeine Allergy Unknown Anaphylaxis Verified 06/18/24 00:37 latex Allergy Unknown Anaphylaxis Verified 06/18/24 00:37 Penicillins Allergy Unknown Anaphylaxis Verified 06/18/24 00:37 Vital Signs Vital Signs - 24 hr 06/17/24 20:33 06/17/24 21:48 06/17/24 22:00 Temperature 36.6 C Pulse Rate 46 L 45 L 44 L Respiratory Rate 15 14 17 Blood Pressure 187/57 H 206/73 H 230/65 H Pulse Oximetry 100 100 100 Oxygen Delivery Room Air 06/17/24 22:45 06/17/24 22:48 06/17/24 22:49 Temperature Pulse Rate 43 L 45 L 85 Respiratory Rate 14 17 20 Blood Pressure 199/62 H 200/72 H Pulse Oximetry 100 100 100 Oxygen Delivery 06/17/24 23:12 06/17/24 23:25 06/17/24 23:30 Temperature Pulse Rate 71 88 87 Respiratory Rate 18 20 22 H Blood Pressure Pulse Oximetry 100 100 100 Oxygen Delivery 06/17/24 23:32 06/17/24 23:45 06/17/24 23:47 Temperature Pulse Rate 76 46 L 87 Respiratory Rate 19 16 16 Blood Pressure 218/47 H 182/66 H Pulse Oximetry 100 100 100 Oxygen Delivery 06/17/24 23:52 06/17/24 23:57 06/18/24 00:05 Temperature Pulse Rate 84 99 93 Respiratory Rate 16 17 18 Blood Pressure 181/57 H 167/59 H Pulse Oximetry 100 100 100 Oxygen Delivery 06/18/24 00:07 06/18/24 00:13 06/18/24 00:24 Temperature Pulse Rate 90 75 Respiratory Rate 18 20 Blood Pressure 164/55 H 212/89 H 184/51 H Pulse Oximetry 100 Oxygen Delivery 06/18/24 00:35 06/18/24 01:22 06/18/24 01:23 Temperature 36.6 C Pulse Rate 46 L 71 55 L Respiratory Rate 20 20 Blood Pressure 184/51 H 166/54 H Pulse Oximetry 100 Oxygen Delivery 06/18/24 02:00 06/18/24 04:00 06/18/24 04:00 Temperature Pulse Rate 45 L 45 L 45 L Respiratory Rate 20 Blood Pressure Pulse Oximetry 100 Oxygen Delivery Room Air 06/18/24 05:04 06/18/24 06:00 06/18/24 07:37 Temperature 36.6 C 37.0 C Pulse Rate 76 45 L 76 Respiratory Rate 20 20 Blood Pressure 135/47 L 152/61 H Pulse Oximetry 95 98 Oxygen Delivery 06/18/24 11:21 06/18/24 08:00 06/18/24 08:00 Temperature 36.9 C Pulse Rate 71 43 L Respiratory Rate 18 Blood Pressure 148/55 H Pulse Oximetry 98 Oxygen Delivery Room Air 06/18/24 10:00 06/18/24 12:00 06/18/24 12:00 Temperature Pulse Rate 41 L 43 L Respiratory Rate Blood Pressure Pulse Oximetry Oxygen Delivery Room Air 06/18/24 14:00 06/18/24 15:40 06/18/24 16:00 Temperature 36.7 C Pulse Rate 44 L 43 L 43 L Respiratory Rate 18 Blood Pressure 158/49 H Pulse Oximetry 95 Oxygen Delivery 06/18/24 16:00 06/18/24 00:40 Temperature Pulse Rate 46 L Respiratory Rate Blood Pressure Pulse Oximetry Oxygen Delivery Room Air Exam Narrative: Patient is comfortable, NAD HEENT: eyes are clear and none icteric LUNGS:CTA HEART: RR S1S2 ABD: BS+, Soft and nontender Lower extremities: no edema SKIN: nonjaundiced Neuro: grossly intact. H&P: Results Labs Labs: Short CBC 06/17/24 Range/Units 21:24 WBC 6.1 (4.5-10.0) K/mm3 Hgb 12.9 (12.0-15.0) g/dL Hct 37.6 (37.0-47.0) % Plt Count 264 (150-375) k/mm3 BMP 06/17/24 21:24 Sodium 136 L Potassium 3.9 Chloride 103 Carbon Dioxide 29 BUN 18 H Creatinine 1.00 Glucose 126 H Calcium 9.7 Cardiac Enzymes 06/17/24 Range/Units 22:14 Troponin I < 0.012 (0.000-0.034) ng/mL Liver Function 06/17/24 Range/Units 21:24 Total Bilirubin 0.7 (0.2-1.3) mg/dL AST 26 (14-36) U/L ALT 15 (6-35) U/L Alkaline Phosphatase 93 (38-126) U/L Albumin 4.1 (3.5-5.1) g/dL Assessment and Plan Assessment and plan (1) Heart block AV third degree: Code(s): I44.2 - Atrioventricular block, complete Status: Acute (2) Hypertensive urgency: Code(s): I16.0 - Hypertensive urgency Status: Acute Plan Patient was seen by dean of admissions and suspect patient had complete heart block and clinically patient is asymptomatic recommended placement of pacemaker which is scheduled for tomorrow, patient denies any chest pain shortness of breath or dizziness, her son is present in the room. Hospitalist MIPS Advance Care Plan I have confirmed that the patient's Advanced Care Plan is present, code status is documented, or surrogate decision maker is listed in patient medical record.: Yes
--- NOTE | 2024-06-18 19:34 | PC.NURSE ---
Patient read and signed consent form form for pacemaker placement. Denied having questions.
[2024-06-19] VITALS (20 sets, daily range): BP systolic 147–182; BP diastolic 45–94; PULSE 41–95; RESP 14–18; TEMP 36.6–37.1; O2SAT 98–100
[2024-06-19] MEDS: hydrALAZINE HCL 20 MG/ML VIAL 10 MG IV PUSH (01:54)
[2024-06-19 04:51] LABS: Hematocrit 39.8 % (37.0-47.0); Mean Corpuscular HGB Conc 35.2 g/dl (32-36); Mean Corpuscular Hemoglobin 30.8 pg (26-34); Mean Corpuscular Volume 87.5 fl (80-100); Mean Platelet Volume 9.6 fl (7.4-10.4); Platelet Count Result 263 k/mm3 (150-375); Red Blood Count 4.55 M/mm3 (4.2-5.4); Red Cell Distribution Width 15.3 % (11.5-14.5); White Blood Count 7.2 K/mm3 (4.5-10.0)
[2024-06-19 05:01] LABS: Anion Gap 7 mmol/L (4-12); Blood Urea Nitrogen 16 mg/dL (7-17); Calcium 9.9 mg/dL (8.4-10.2); Carbon Dioxide 24 mmol/L (22-30); Chloride 107 mmol/L (98-107); Estimated Glomerular Filt Rate 55; Glucose 133 mg/dL (65-110); Magnesium 1.6 mg/dL (1.6-2.3); Potassium 3.6 mmol/L (3.4-5.0); Sodium 138 mmol/L (137-145)
--- NOTE | 2024-06-19 07:24 | P.SEDATION_ITS ---
Moderate Sedation Note-Pt Data Patient Data Diagnosis: Acquired complete heart block Present Complaint: hypertension Procedure to be performed/Plan: implantation of permanent pacemaker Allergies Allergy/AdvReac Type Severity Reaction Status Date / Time aspirin Allergy Unknown Anaphylaxis Verified 06/18/24 00:37 codeine Allergy Unknown Anaphylaxis Verified 06/18/24 00:37 latex Allergy Unknown Anaphylaxis Verified 06/18/24 00:37 Penicillins Allergy Unknown Anaphylaxis Verified 06/18/24 00:37 Home Medications Medication Instructions Recorded Confirmed Type amlodipine 2.5 mg tablet 2.5 mg PO DAILY 06/18/24 06/18/24 History atorvastatin 20 mg tablet 20 mg PO DAILY 06/18/24 06/18/24 History chlorthalidone 25 mg tablet 25 mg PO DAILY 06/18/24 06/18/24 History clopidogrel 75 mg tablet 75 mg PO DAILY 06/18/24 06/18/24 History empagliflozin 10 mg tablet 10 mg PO DAILY 06/18/24 06/18/24 History (Jardiance) ramipril 10 mg capsule 10 mg PO DAILY 06/18/24 06/18/24 History Current Medications: Active Medications Amlodipine Besylate (Amlodipine Besylate 2.5 Mg Tablet) 2.5 mg PO DAILY [facility] Atorvastatin Calcium (Atorvastatin 20 Mg Tablet) 20 mg PO DAILY [facility] Chlorthalidone (Chlorthalidone 25 Mg Tablet) 25 mg PO DAILY [facility] Clopidogrel Bisulfate (Clopidogrel Bisulfate 75 Mg Tablet) 75 mg PO DAILY [facility] Empagliflozin (Empagliflozin 10 Mg Tablet) 10 mg PO DAILY [facility] Perflutren Lipid Microsphere (Perflutren Lipid Microspheres 1.5 Ml Vial Diluted To 10 Ml Total Volume) 0 ml IV PUSH ONCE PRN; Protocol PRN Reason: adequate visualization Stop: 06/21/24 07:23 Ramipril (Ramipril 5 Mg Capsule) 10 mg PO DAILY [facility] Sedation/Anesthesia: No previous sedation/anesthesia problems (including family history). [facility] Family History Family History (Updated 06/18/24 @ 00:28 by Tracy Winston RN) Father Hypertension Cerebrovascular accident History of blood clots Sibling Diabetes mellitus Seizure History of blood clots Mother Colon cancer Social History Social History Smoking packs per day: 0.5 Smoking cigarettes per day: 10.0 Years smoked: 50 Smoking pack-years: 25.00 Smoking status: Current every day smoker Tobacco type: cigarettes Alcohol intake: current Substance use type: marijuana Do You Feel Safe in your Home?: Yes Lack of Transportation: No Lack of Food: Never True Current Housing: I Have Housing Concerned About Future Housing: No Difficulty Paying Gas/Electric Bills: No Difficulty Paying for Meds: No Currently Unemployed: No Education: High School Diploma/GED Difficulty w/ Childcare or Family Care: No Spiritual care concerns: No Mod Sed Physical Exam Physical Exam Pre Procedural Exam: Normal: Appearance, Neck, Throat, Airway, Lungs, Heart Size, Neuro Exam and Extremities and Variation: Heart Rate ( heart rate 40, complete heart block) and Heart Rhythm Hours since solid foods: 12 Hours since liquid intake: 12 Mallampati Classification: class II Internal Medicine - PN: Obj Da Vital Signs Vital Signs: Vital Signs - 24 hr 06/18/24 07:37 06/18/24 11:21 06/18/24 08:00 Temperature 37.0 C 36.9 C Pulse Rate 76 71 Respiratory Rate 20 18 Blood Pressure 152/61 H 148/55 H Pulse Oximetry 98 98 Oxygen Delivery Room Air 06/18/24 08:00 06/18/24 10:00 06/18/24 12:00 Temperature Pulse Rate 43 L 41 L 43 L Respiratory Rate Blood Pressure Pulse Oximetry Oxygen Delivery 06/18/24 12:00 06/18/24 14:00 06/18/24 15:40 Temperature 36.7 C Pulse Rate 44 L 43 L Respiratory Rate 18 Blood Pressure 158/49 H Pulse Oximetry 95 Oxygen Delivery Room Air 06/18/24 16:00 06/18/24 16:00 06/18/24 18:00 Temperature Pulse Rate 43 L 44 L Respiratory Rate Blood Pressure Pulse Oximetry Oxygen Delivery Room Air 06/18/24 20:00 06/18/24 20:00 06/18/24 20:00 Temperature 36.8 C Pulse Rate 42 L 42 L 42 L Respiratory Rate 16 16 Blood Pressure 173/57 H Pulse Oximetry 97 97 Oxygen Delivery Room Air 06/18/24 23:51 06/19/24 00:00 06/18/24 22:00 Temperature 36.8 C Pulse Rate 42 L 41 L 42 L Respiratory Rate 16 16 Blood Pressure 182/68 H Pulse Oximetry 97 100 Oxygen Delivery Room Air 06/19/24 00:00 06/19/24 02:00 06/19/24 04:00 Temperature Pulse Rate 41 L 43 L 43 L Respiratory Rate 16 Blood Pressure Pulse Oximetry 100 Oxygen Delivery Room Air 06/19/24 04:00 06/19/24 04:00 06/19/24 06:00 Temperature 37.1 C Pulse Rate 43 L 55 L 41 L Respiratory Rate 16 Blood Pressure 152/45 H Pulse Oximetry 100 Oxygen Delivery Intake/Output Intake/Output: Intake & Output 06/16/24 06/17/24 06/18/24 06/19/24 23:59 23:59 23:59 23:59 Intake Total 880 200 Balance 880 200 Meds/Results Medications: Active Medications Generic Name Dose Route Start Last Admin Trade Name Freq PRN Reason Stop Dose Admin Amlodipine Besylate 2.5 mg 06/19/24 09:00 Amlodipine Besylate 2.5 Mg Tablet PO DAILY [facility] Atorvastatin Calcium 20 mg 06/19/24 09:00 Atorvastatin 20 Mg Tablet PO DAILY [facility] Chlorthalidone 25 mg 06/19/24 09:00 Chlorthalidone 25 Mg Tablet PO DAILY [facility] Clopidogrel Bisulfate 75 mg 06/19/24 09:00 Clopidogrel Bisulfate 75 Mg Tablet PO DAILY [facility] Empagliflozin 10 mg 06/19/24 09:00 Empagliflozin 10 Mg Tablet PO DAILY [facility] Perflutren Lipid Microsphere 0 ml 06/18/24 07:23 Perflutren Lipid Microspheres 1.5 Ml Vial Diluted To 10 Ml Total Volume IV PUSH 06/21/24 07:23 ONCE PRN adequate visualization Protocol Ramipril 10 mg 06/19/24 09:00 Ramipril 5 Mg Capsule PO DAILY [facility] Radiology Results: ITS Impressions Chest X-Ray 06/18/24 08:13 IMPRESSION: No definite acute cardiopulmonary pathology. Labs 06/19/24 04:44 06/19/24 04:44 Labs: Laboratory Results - last 24 hr 06/19/24 04:44 WBC 7.2 RBC 4.55 Hgb 14.0 Hct 39.8 MCV 87.5 MCH 30.8 MCHC 35.2 RDW 15.3 H Plt Count 263 MPV 9.6 Sodium 138 Potassium 3.6 Chloride 107 Carbon Dioxide 24 Anion Gap 7 BUN 16 Creatinine 1.00 Estim Creat Clear Calc Not Reportable Estimated GFR 55 L Glucose 133 H Calcium 9.9 Magnesium 1.6 ASA Classification/Sedation ASA Classification/Sedation ASA Class: II Emergent: No Risks: Risks, benefits and alternatives explained and patient/family accepted plan for sedation. Patient re-evaluated immediately prior to sedation.
--- NOTE | 2024-06-19 07:40 | PC.NURSE ---
Patient went to lab manager at 0720 via stretcher.
--- NOTE | 2024-06-19 08:38 | ECG_ITS ---
Test Date: 2024-06-19 08:53:00 Measurements Intervals [place] Rate: 80 P: 73 CA: 187 QRS: -74 QRSD: 152 T: 84 QT: 448 QTc: 517 Interpretive Statements ATRIAL SENSE- ELECTRONIC VENTRICULAR PACEMAKER BASELINE ARTIFACT- V3 NO FURTHER INTERPRETATION IS POSSIBLE ATYPICAL ECG Compared to ECG 06/17/2024 22:12:19 JUNCTIONAL ESCAPE RHYTHM NO LONGER PRESENT Electronically Signed On 06-19-2024 09:14:59 [employer]ACH [employer] by Lito Sanon D.O.
--- NOTE | 2024-06-19 08:39 | P.PCNCC_ITS ---
Cardiac Cath Procedure Note Date of procedure:: 06/19/24 Performing physician:: Tanvir Kaminski MD Indication:: acquired complete heart block Brief clinical history:: this is a 69-year-old lady who entered the hospital with hypertension she was found to be bradycardic and and acquired complete heart block with which she appears to be asymptomatic Procedure Procedure performed:: implantation of permanent dual-chamber pacemaker Sedation/Medication given:: fentanyl 25 Versed formula case start time 7:56 a.m. case end time 8:37 a.m. sedation provided by Latosha Herrera RN, trained observer Access site:: left subclavian Estimated blood loss:: minimal Procedure note:: patient was brought to the cardiac catheterization lab in the postabsorptive state where the left anterior chest wall was prepped and draped in the normal sterile fashion. 20 cc of lidocaine was infiltrated inferior to the clavicle for local anesthesia. An incision was then made about 1 in below the clavicle from the midclavicular line to the deltopectoral groove. Following this sharp and blunt dissection was used to separate the subcutaneous tissue electrocautery was used to provide cutaneous hemostasis. At the level of the prepectoral fascia blunt dissection was used to create a pacemaker pocket inferior to the incision. After this the pocket was packed with antibiotic soaked 4 x 4. At attention was then turned to venous access. Two 6 Persian SafeSheath kits were used to puncture the subclavian vein the J wires were placed under fluoroscopic visualization to the level of right atrium. Using the 6 Persian safe sheaths the 2 pacemaker leads mentioned below were advanced into the venous circulation at the to the level of the right atrium. Attention was then turned to positioning the ventricular lead. The stylet was withdrawn and a 3 cc syringe was used to form a J-tip stylet which was used to steer lead through the right ventricle out to the PA position. A straight stylet was placed back into the lead it was withdrawn and placed into the right ventricular apical position. The fixation screw was deployed there was excellent pacing and sensing performance noted. A 10 volts stimulation showed no evidence of extracardiac stimulation. After this attention was then turned to positioning the atrial lead. The stylet was withdrawn and a preformed atrial J stylet was placed into the lead it was positioned into the right atrial appendage the fixation screw was deployed and it was fixed into position upon withdrawal of the stylet. Pacing and sensing performs was documented then did using the analyzer and a good lead performance was demonstrated. Once again is a 10 volts stimulus showed no evidence of extracardiac stimulation. Following this the leads were sutured to the base of the pocket using the suture sleeves and 2-0 silk ties. The retained sponge was removed from the pocket the pocket was irrigated with antibiotic infused saline. After this the pacemaker device was connected to the leads using the torque wrench and the entire assembly was placed into the newly created pocket. This was closed in layers using 3-0 Vicryl in interrupted fashion for the subcutaneous tissue and 4-0 Vicryl in a running subcuticular fashion for the skin the wound was dressed with a Aquacel dressing. The procedure was well zeus erated and uncomplicated. It should be mentioned after initiation of electronic AV sequential pacing the patient's intrinsic ventricular rhythm was no longer present and she appears to be pacemaker dependent. Findings:: Patient received a Biotronik dual-chamber pacemaker model Amvia Edge DR-t [id number]. serial number [id number]. device is programmed in the DDD mode lower rate limit 60 upper rate limit 130. The atrial lead is a Biotronik screw-in bipolar lead model Solia S [id number]. serial number [id number]. PP waves are sensed at 7.2 mV threshold 0.7 volts at 0.4 milliseconds impedance 508 Ohms the ventricular lead is a Biotronik screw-in bipolar lead model Solia S [id number]. serial number [id number]. R-waves are not sense with no intrinsic rhythm. Threshold is 0.6 volts at 0.4 milliseconds impedance 723 Ohms. Conclusion:: 1. Successful uncomplicated implantation of permanent dual-chamber pacing system for treatment acquired complete heart block in this 69-year-old lady with hypertension 2. patient noted to become pacemaker dependent following implantation of the device and initiation of AV pacing Tanvir Kaminski MD [facility]
[2024-06-19] MEDS: SODIUM CHLORIDE 0.9% IV 1,000 ML 50 ML IV CONT (09:33)
[2024-06-19] MEDS: ATORVASTATIN 20 MG TABLET PO (10:22)
[2024-06-19] MEDS: CHLORTHALIDONE 25 MG TABLET PO (10:22)
[2024-06-19] MEDS: EMPAGLIFLOZIN 10 MG TABLET PO (10:22)
[2024-06-19] MEDS: amLODIPine BESYLATE 2.5 MG TABLET PO (10:22)
[2024-06-19] MEDS: CLOPIDOGREL BISULFATE 75 MG TABLET PO (10:23)
[2024-06-19] MEDS: ramipriL 5 MG CAPSULE 10 MG PO (10:24)
[2024-06-19 16:41] LABS: Glucose Point of Care 109 mg/dl (65-105)
[2024-06-19] MEDS: ACETAMINOPHEN 325 MG TABLET 650 MG PO (17:58)
--- NOTE | 2024-06-19 18:48 | WPDPN ---
Progress Note: A&P Assessment and Plan (1) Heart block AV third degree: Code(s): I44.2 - Atrioventricular block, complete Status: Acute (2) Hypertensive urgency: Code(s): I16.0 - Hypertensive urgency Status: Acute Plan Patient was seen by quality control analyst and suspect patient had complete heart block and clinically patient is asymptomatic recommended placement of pacemaker which is scheduled for tomorrow, patient denies any chest pain shortness of breath or dizziness, her son is present in the room. today patient had successfully Biotronik dual-chamber pacemaker model, patient has no complaints of CP or shortness of breath, will repeat chest x-ray tomorrow and further recommendation to follow. her son is present in the room. Subjective Date/time seen: 06/19/24 18:48 Interval history: Patient was seen by quality control analyst and suspect patient had complete heart block and clinically patient is asymptomatic recommended placement of pacemaker which is scheduled for tomorrow, patient denies any chest pain shortness of breath or dizziness, her son is present in the room. today patient had successfully Biotronik dual-chamber pacemaker model, patient has no complaints of CP or shortness of breath, will repeat chest x-ray tomorrow and further recommendation to follow. her son is present in the room. Review of Systems Constitutional: Constitutional: Reports no additional constitutional complaints Eyes: Eyes: Reports no additional eye complaints ENT: Reports system reviewed and no additional complaints, except as documented Cardiovascular: Cardiovascular: Reports no additional cardiovascular complaints Respiratory: Respiratory: Reports no additional respiratory complaints Gastrointestinal: Gastrointestinal: Reports no additional gastrointestinal complaints Musculoskeletal: Musculoskeletal: Reports no additional musculoskeletal complaints Integumentary/Breasts: Skin/Breast: Reports system reviewed and no additional complaints, except as docu Neurologic: Reports system reviewed and no additional complaints, except as documented Endocrine: Endocrine: Reports no additional endocrine complaints Hematologic/Lymphatic: Hematologic/Lymphatic: Reports no additional hematologic/lymphatic complaints Allergic/Immunologic: Allergic/Immunologic: Reports no additional allergic/immunologic complaints Exam Narrative: Patient is comfortable, NAD HEENT: eyes are clear and none icteric LUNGS:CTA HEART: RR S1S2 ABD: BS+, Soft and nontender Lower extremities: no edema SKIN: nonjaundiced Neuro: grossly intact. Objective Data Vital Signs Vital Signs: Vital Signs - 24 hr 06/18/24 20:00 06/18/24 20:00 06/18/24 20:00 Temperature 36.8 C Pulse Rate 42 L 42 L 42 L Respiratory Rate 16 16 Blood Pressure 173/57 H Pulse Oximetry 97 97 Oxygen Delivery Room Air 06/18/24 23:51 06/19/24 00:00 06/18/24 22:00 Temperature 36.8 C Pulse Rate 42 L 41 L 42 L Respiratory Rate 16 16 Blood Pressure 182/68 H Pulse Oximetry 97 100 Oxygen Delivery Room Air 06/19/24 00:00 06/19/24 02:00 06/19/24 04:00 Temperature Pulse Rate 41 L 43 L 43 L Respiratory Rate 16 Blood Pressure Pulse Oximetry 100 Oxygen Delivery Room Air 06/19/24 04:00 06/19/24 04:00 06/19/24 06:00 Temperature 37.1 C Pulse Rate 43 L 55 L 41 L Respiratory Rate 16 Blood Pressure 152/45 H Pulse Oximetry 100 Oxygen Delivery 06/19/24 09:03 06/19/24 09:15 06/19/24 09:00 Temperature Pulse Rate 78 85 79 Respiratory Rate 14 18 14 Blood Pressure 155/83 H 147/77 H 181/85 H Pulse Oximetry 100 100 100 Oxygen Delivery Room Air Room Air Room Air 06/19/24 09:30 06/19/24 09:34 06/19/24 09:41 Temperature Pulse Rate 86 81 Respiratory Rate 17 15 Blood Pressure 160/80 H 147/94 H Pulse Oximetry 98 98 99 Oxygen Delivery Room Air Room Air Room Air 06/19/24 10:23 06/19/24 10:23 06/19/24 12:00 Temperature 36.6 C Pulse Rate 95 87 86 Respiratory Rate 16 Blood Pressure 165/80 H Pulse Oximetry 100 Oxygen Delivery 06/19/24 14:00 06/19/24 16:00 06/19/24 16:00 Temperature 36.7 C Pulse Rate 86 82 88 Respiratory Rate 16 Blood Pressure 148/69 H Pulse Oximetry 100 Oxygen Delivery 06/19/24 18:00 06/19/24 18:34 Temperature 36.7 C Pulse Rate 86 82 Respiratory Rate 16 Blood Pressure 162/65 H Pulse Oximetry 100 Oxygen Delivery Intake/Output Intake/Output: Intake & Output 06/16/24 06/17/24 06/18/24 06/19/24 23:59 23:59 23:59 23:59 Intake Total 880 1240 Output Total 200 Balance 880 1040 Meds/Results Medications: Active Medications Generic Name Dose Route Start Last Admin Trade Name Freq PRN Reason Stop Dose Admin Acetaminophen 650 mg 06/19/24 17:39 06/19/24 17:58 Acetaminophen 325 Mg Tablet PO 650 mg Q4H PRN Administration Pain Rated 1-3 Amlodipine Besylate 2.5 mg 06/19/24 09:00 06/19/24 10:22 Amlodipine Besylate 2.5 Mg Tablet PO 2.5 mg DAILY DIMA Administration Atorvastatin Calcium 20 mg 06/19/24 09:00 06/19/24 10:22 Atorvastatin 20 Mg Tablet PO 20 mg DAILY DIMA Administration Chlorthalidone 25 mg 06/19/24 09:00 06/19/24 10:22 Chlorthalidone 25 Mg Tablet PO 25 mg DAILY DIMA Administration Clopidogrel Bisulfate 75 mg 06/19/24 09:00 06/19/24 10:23 Clopidogrel Bisulfate 75 Mg Tablet PO 75 mg DAILY DIMA Administration Dextrose 12.5 gm 06/19/24 10:44 Dextrose 50% 25 Gm/50 Ml Syringe IV PUSH PRN PRN Hypoglycemia Protocol Empagliflozin 10 mg 06/19/24 09:00 06/19/24 10:22 Empagliflozin 10 Mg Tablet PO 10 mg DAILY DIMA Administration Glucagon 1 mg 06/19/24 10:44 Glucagon For Inj 1 Mg Vial IM PRN PRN Hypoglycemia Protocol Glucose 15 gm 06/19/24 10:44 Glucose Oral Gel 15 Gm Of Glucse In 37.5 Gm Tube PO PRN PRN Hypoglycemia Protocol Dextrose 1,000 mls @ 100 mls/hr 06/19/24 10:44 Dextrose 5% 1,000 Ml IVPB PRN PRN Hypoglycemia Protocol Insulin Aspart 2 - 5 units 06/19/24 12:00 06/19/24 16:43 Insulin Aspart (*Bkc) 100 Units/Ml SUB-Q Not Given TIDWM [facility] Protocol Insulin Aspart 1 - 2 units 06/19/24 21:00 Insulin Aspart (*Bkc) 100 Units/Ml SUB-Q HS [facility]1983 Protocol Perflutren Lipid Microsphere 0 ml 06/18/24 07:23 Perflutren Lipid Microspheres 1.5 Ml Vial Diluted To 10 Ml Total Volume IV PUSH 06/21/24 07:23 ONCE PRN adequate visualization Protocol Ramipril 10 mg 06/19/24 09:00 06/19/24 10:24 Ramipril 5 Mg Capsule PO 10 mg DAILY DIMA Administration Radiology Results: ITS Impressions Chest X-Ray 06/19/24 09:40 IMPRESSION: 1. Expected appearance of a dual-lead cardiac pacemaker. No acute cardiopulmonary disease. Labs Labs: Laboratory Results - last 24 hr 06/19/24 06/19/24 04:44 16:39 WBC 7.2 RBC 4.55 Hgb 14.0 Hct 39.8 MCV 87.5 MCH 30.8 MCHC 35.2 RDW 15.3 H Plt Count 263 MPV 9.6 Sodium 138 Potassium 3.6 Chloride 107 Carbon Dioxide 24 Anion Gap 7 BUN 16 Creatinine 1.00 Estim Creat Clear Calc Not Reportable Estimated GFR 55 L Glucose 133 H POC Capillary Glucose 109 H Calcium 9.9 Magnesium 1.6
[2024-06-19 20:09] LABS: Glucose Point of Care 168 mg/dl (65-105)
[2024-06-20] VITALS (9 sets, daily range): BP systolic 123–189; BP diastolic 62–88; PULSE 69–104; RESP 16–166; TEMP 36.6–37; O2SAT 99–100
--- NOTE | 2024-06-20 04:09 | PC.NURSE ---
Spoke to Dr. Calvo again this morning regarding blood pressure 189/71. asymptomatic. Orders received.
[2024-06-20 04:38] LABS: Hematocrit 37.8 % (37.0-47.0); Hemoglobin 13.1 g/dL (12.0-15.0); Mean Corpuscular HGB Conc 34.7 g/dl (32-36); Mean Corpuscular Hemoglobin 30.3 pg (26-34); Mean Corpuscular Volume 87.5 fl (80-100); Mean Platelet Volume 9.7 fl (7.4-10.4); Platelet Count Result 235 k/mm3 (150-375); Red Blood Count 4.32 M/mm3 (4.2-5.4); White Blood Count 5.8 K/mm3 (4.5-10.0)
[2024-06-20 04:48] LABS: Anion Gap 6 mmol/L (4-12); Blood Urea Nitrogen 16 mg/dL (7-17); Calcium 9.9 mg/dL (8.4-10.2); Carbon Dioxide 26 mmol/L (22-30); Chloride 105 mmol/L (98-107); Estimated Glomerular Filt Rate 55; Glucose 120 mg/dL (65-110); Magnesium 1.8 mg/dL (1.6-2.3); Potassium 3.7 mmol/L (3.4-5.0); Sodium 137 mmol/L (137-145)
[2024-06-20] MEDS: hydrALAZINE HCL 20 MG/ML VIAL 10 MG IV PUSH (05:17)
[2024-06-20] MEDS: EMPAGLIFLOZIN 10 MG TABLET PO (08:05)
[2024-06-20] MEDS: ramipriL 5 MG CAPSULE 10 MG PO (08:05)
[2024-06-20] MEDS: CLOPIDOGREL BISULFATE 75 MG TABLET PO (08:05)
[2024-06-20] MEDS: CHLORTHALIDONE 25 MG TABLET PO (08:05)
[2024-06-20] MEDS: amLODIPine BESYLATE 2.5 MG TABLET PO (08:06)
[2024-06-20] MEDS: ATORVASTATIN 20 MG TABLET PO (08:06)
[2024-06-20 10:27] LABS: Glucose Point of Care 145 mg/dl (65-105)
--- NOTE | 2024-06-20 13:30 | P.DS_ITS ---
DS: Summary Time Spent with Patient Time attestation: Total time spent providing and/or coordinating discharge services: DS: Data Data Completed and Pending Labs on day of discharge: Labs from last 24 hours 06/20/24 06/20/24 06/19/24 07:50 04:29 19:52 WBC 5.8 RBC 4.32 Hgb 13.1 Hct 37.8 MCV 87.5 MCH 30.3 MCHC 34.7 RDW 15.0 H Plt Count 235 MPV 9.7 Sodium 137 Potassium 3.7 Chloride 105 Carbon Dioxide 26 Anion Gap 6 BUN 16 Creatinine 1.00 Estim Creat Clear Calc Not Reportable Estimated GFR 55 L Glucose 120 H POC Capillary Glucose 145 H 168 H Calcium 9.9 Magnesium 1.8 06/19/24 16:39 WBC RBC Hgb Hct MCV MCH MCHC RDW Plt Count MPV Sodium Potassium Chloride Carbon Dioxide Anion Gap BUN Creatinine Estim Creat Clear Calc Estimated GFR Glucose POC Capillary Glucose 109 H Calcium Magnesium Discharge Plan Discharge Attending physician on discharge: Kamlesh Calvo V. Consulting providers: Usman Ley Discharging Clinician: Leeann Bradshaw Activity: as tolerated Diet: heart healthy Discharge Instructions: [facility] [address] [place] [id number] DISCHARGE INSTRUCTIONS - POST PACEMAKER Activity 1. No driving until you are seen in the office for your incision check. 2. No lifting, pushing or pulling more than 5 pounds with affected arm for 1 MONTH 3. No lifting affected arm above shoulder height for 1 MONTH 4. Wear immobilizer/sling only if you are unable to remember the above activity restrictions. Recommend that it be worn at night. 5. You may shower AFTER you are seen for incision check on but no tub baths, swimming pool or hot tub for 1MONTH Wound Care 1. Do not attempt to remove the Aquacel dressing. Leave dressing undisturbed until incision check at the office visit. Keep dressing dry. 2. When you are able to shower AFTER you are seen for your incision check in the office do not rub or scrub the incision. Pat dry after shower. NO lotions, powders, creams or ointments are to be applied to the incision 3. A small amount of tenderness, puffiness and bruising around the site is normal. Call if any significant pain, drainage, swelling, or redness around the site 4. Woman: Wear a bra to support the breast tissue and avoid pulling on the incision. Pad the bra strap if necessary with soft smooth cloth. *For any other questions please call the office at [phone]. Office hours are 8AM 4:30PM Sunday through Sunday.Hypertensive Urgency Patient to follow discharge care instruction from her director of casework services and follow up as scheduled, patient to follow up with her primary care provider as soon as possible, patient is instructed if any symptoms redevelop to go to nearest ER. Patient Instructions: Antibiotic Form, Pain Management (GEN), Pacemaker (DC), Pacemaker (GEN) Stand Alone Forms: General Discharge Information Follow-up/Referrals: Usman Ley MD [Physician] - UNKNOWN,DOCTOR [Primary Care Provider] - Discharge Medications: Continued atorvastatin 20 mg tablet 20 mg PO DAILY amlodipine 2.5 mg tablet 2.5 mg PO DAILY clopidogrel 75 mg tablet 75 mg PO DAILY chlorthalidone 25 mg tablet 25 mg PO DAILY ramipril 10 mg capsule 10 mg PO DAILY Jardiance 10 mg tablet 10 mg PO DAILY Date of admission: 06/19/24 08:38 Primary Care Provider: UNKNOWN,DOCTOR Admitting Provider: Kamlesh Calvo V. Attending physician on admission: Kamlesh Calvo V. Condition: Improved
--- NOTE | 2024-06-20 13:54 | PC.NURSE ---
Discharge order received. Discharge instructions discussed with patient. Patient verbalizes understanding. Son is to take her home via private vehicle. IV removed without complications. Tech assisting patient with dressing.
[2024-06-20 15:12] LABS: Glucose Point of Care 117 mg/dl (65-105)
== END 2024-06-20 14:08 | disposition home or self-care (01) | DRG 244 ==
LOC: ANHED 23:39 → ANHIMU 06-18 00:44
PROVIDERS: Specialist; Admitting Provider Internal Medicine; Emergency Provider Emergency Medicine; Visit Provider Family Medicine
PROC: 0JH606Z Insertion of Pacemaker, Dual Chamber into Chest Subcutaneous Tissue and Fascia, Open Approach (ICD-10-PCS; CPT 33208; principal; 2024-06-19 07:30)
DX: I44.2 Atrioventricular block, complete (principal); I16.0 Hypertensive urgency; I10 Essential (primary) hypertension; E78.5 Hyperlipidemia, unspecified; E11.9 Type 2 diabetes mellitus without complications; F17.210 Nicotine dependence, cigarettes, uncomplicated; Z86.73 Personal history of transient ischemic attack (TIA), and cerebral infarction without residual deficits
CPT/HCPCS: 33208; 36415; 71045; 71046; 80048; 80053; 82948; 83735; 84484; 85025; 85027; 85610; 85730; 93005; 93306; 96374; 96375; 99285; A9270; C1779; C1785; G0378; J0360; J2003; J2250; J2405; J3010; J3370; J7030; J7040

== ENCOUNTER 2025-01-29 20:55 | Emergency (ER) | payer MEDICARE, SELFPAY ==
[2025-01-29 20:56] VITALS: BP 119/58; PULSE 84; RESP 13; TEMP 36.3; O2SAT 100
--- OUTSIDE RECORDS SUMMARY | 2025-01-29 20:57 | XMS_ITS | Encounter Summary ---
Author Organization [facility] Address [address] [place] [id number] Phone Care Team Providers Care Lift Builder Whole Name Role Phone Madhu Cheema MD Primary Care Provider [phone] Dianelys Nieves MD Unavailable [phone] Jaron Lee MD Unavailable Freddie Madrid MD Unavailable [phone] Encounter Details Date Type Department Care Team (Late st Contact Info) Description 07/21/[address] [address] Madhu Cheema MD [address] [place] [address] [address] [place] [address] Social History Tobacco Use Types Packs/Day Years Used Date Smoking Tobacco: Every Day Cigarettes 0.3 35 Smokeless Tobacco: Never Alcohol Use Standard Drinks/Week Comments No 0 (1 standard drink = 0.6 oz pur e alcohol) AUDIT-C Answer Date Recorded Q1: How often do you have a drink containing alcohol? Never 06/16/2024 Q2: How many drinks containi ng alcohol do you have on a typical day when you are drinking? Patient does not drink Q3: How often do you have si x or more drinks on one occasion? Never 06/16/2024 PHQ-2 Answer Date Recorded PHQ-2 Total Score (If total score is 3 or more points, staff should administer the PHQ-9) 3 06/16/2024 Exercise Vital Sign Answer Date Recorde d On average, how many days pe r week do you engage in moderate to strenuous exercise (like a brisk walk)? 0 days Minutes of Exercise per Session Not on file 07/11/2021 PHQ-9 Answer Date Recorded PHQ-9 Total Score 3 06/16/2024 Personal Safety Answer Date Recorded Have you ever been in or are you currently in a harmful physical or emotional relationship or is someone making you feel afraid or unsafe? 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 Not on file Not on file Not on file documented as of this encounter Plan of Treatment Scheduled Procedures Name Priority Associated Diagnoses Date/Ti me COLONOSCOPY Open Access History of adenomatous polyp of colon COLONOSCOPY History of colonic polyps COLONOSCOPY History of colonic polyps documented as of this encounter Visit Diagnoses Not on filedocumented in this encounter Care Teams Lift Builder Whole Relationship Specialty Start Date End Date Madhu Cheema MD [facility] [address] [place] [address] [place] [address] PCP - General 10/04/16 Dianelys Nieves MD [address] [place] [address] Referring Physician Plastic Surgery 02/27/18 Jaron Lee MD [address] [place] [address] Consulting Physician Gastroenterology 09/02/18 Freddie Madrid MD [address] [place] [address] Consulting Physician Bone Health 05/29/22 documented as of this encounter
--- OUTSIDE RECORDS SUMMARY | 2025-01-29 20:57 | XMS_ITS | Encounter Summary ---
Author Organization [facility] Healthcare Address [address] [place] [address] Care Team Providers Care Materials Management Clerk Name Role Phone Madhu Cheema MD Primary Care Provider [phone] Dianelys Nieves MD Unavailable [phone] Jaron Lee MD Unavailable [phone] Freddie Madrid MD Unavailable Encounter Details Date Type Department Care Team (Late st Contact Info) Description 06/18/2024 Orders Only [facility] Health Information Management [address] [place] [address] Tanvir Kaminski MD [address] [address] Social History Tobacco Use Types Packs/Day Years [...] on file 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 Gender Identity Not on file Sexual Orientation [...] colonic polyps documented as of this encounter Procedures Procedure Name Priority Date/Time Associated Diagnosis Comments CARDIOLOGY DOCUMENT SCAN 06/18/2024 documented in this encounter Results * Cardiology Document Scan (06/18/2024) Anatomical Region Laterality Modality Other Tanvir Kaminski MD [facility] CARDIAC SERVICES PROC EDURES Final Result documented in this encounter Visit Diagnoses Not on filedocumented in this encounter Care Teams Materials Management Clerk Relationship Specialty Start Date End Date Madhu Cheema MD [facility] [address] [place] [address] [place] [address] PCP - General 10/04/16 Dianelys Nieves MD [address] [place] [address] Referring Physician Plastic Surgery 02/27/18 Jaron Lee MD [address] [place] [address] Consulting Physician Gastroenterology 09/02/18 Freddie Madrid MD [address] [place] [address] Consulting Physician Bone Health 05/29/22 documented as of this encounter
--- OUTSIDE RECORDS SUMMARY | 2025-01-29 20:57 | XMS_ITS | Encounter Summary ---
Author Organization [facility] Healthcare Address [address] [place] [address] Care Team Providers Care Innovation Analyst Name Role Phone Madhu Cheema MD Primary Care Provider [phone] Dianelys Nieves MD Unavailable [phone] Jaron Lee MD Unavailable [phone] Freddie Madrid MD Unavailable [phone] Reason for Visit * Reason Onset Date Comments ready to schedule 07/27/2022 Encounter Details Date Type Department Care Team (Late st Contact Info) Description 07/27/2022 Telephone [facility] Specialty Services [address] [place] [address] Miscellaneous, Not In File ready to schedule Social History Tobacco Use Types Packs/Day Years Used Date Smoking Tobacco: Some Days Cigarettes 0.3 35 Smokeless Tobacco: Never Alcohol Use Standard Drinks/Week Comments No 0 (1 standard drink = 0.6 oz pur e alcohol) AUDIT-C Answer Date Recorded Q1: How often do you have a drink containing alc ohol? Never 05/29/2022 Average Number of Drinks Not on file 022 Frequency of Binge Drinking Not on file 05/01 PHQ-2 Answer Date Recorded PHQ-2 Total Score (If total score is 3 or more points, staff should administer the PHQ-9) 0 05/29/2022 Exercise Vital Sign Answer Date Recorde d On average, how many days pe r week do you engage in moderate to strenuous exercise (like a brisk walk)? 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 Not on file Not on file documented as of this encounter Plan of Treatment Scheduled Procedures Name Priority Associated Diagnoses Date/Ti ia COLONOSCOPY Open Access History of adenomatous polyp of colon COLONOSCOPY History of colonic polyps COLONOSCOPY History of colonic polyps documented as of this encounter Visit Diagnoses Not on filedocumented in this encounter Care Teams Innovation Analyst Relationship Specialty Start Date End Date Madhu Cheema MD [facility] [address] [address] PCP - General 10/04/16 Dianelys Nieves MD [address] [place] [address] Referring Physician Plastic Surgery 02/27/18 Jaron Lee MD [address] [place] [address] Consulting Physician Gastroenterology 09/02/18 Freddie Madrid MD [address] [place] [address] Consulting Physician Bone Health 05/29/22 documented as of this encounter
--- OUTSIDE RECORDS SUMMARY | 2025-01-29 20:57 | XMS_ITS ---
Author Name Auto Generated, Auto Generated Organization [facility] Address [address] [place] [address] Phone [phone] Care Team Providers Care Human Resources Trainer Name Role Phone Blake Solis Unavailable [phone] Functional Status No Results Mental Status No Results Allergies and Intolerances Name Onset Date Reaction Severity codeine (Allergy) SunNov 17 02:16:00 EDT 2017 aspirin (Allergy) SunNov 17 02:16:00 EDT 2017 Latex (Allergy) SunNov 16 22:04:00 EDT 2017 penicillin (Allergy) SunNov 16 22:04:00 EDT 201 8 Medications Medication Directions Start Date End Date oxyCODONE-acetaminophen 5 mg-325 mg tablet 5-325 mg 1-2 tablets TABLET Oral PRN Every 4 Hours SunNov 23 01:00:00 EDT 2017November 27 18:12:00 EDT 2017 clopidogrel 75 mg tablet 75 mg TABLET Or al 1 Time Daily SunNov 26 01:00:00 EDT 2017December 01 01:00:00 EDT 2017 oxyCODONE-acetaminophen 5 mg-325 mg tablet 1-2 tabs Oral PRN Every 4 Hours pain SunNovember 27 18:10:00 EDT 2017December 01 01:00:00 EDT 2017 oxyCODONE-acetaminophen 5 mg-325 mg tablet 1-2 tabs Oral PRN Every 4 Hours pain SunNovember 27 18:15:00 EDT 2017December 01 01:00:00 EDT 2017 Calcium 600 + D(3) 600 mg (1,500 mg)-400 unit tablet 1 tabs TABLET Oral 2 Times Daily SunNov 23 01:00:00 EDT 2017December 01 01:00:00 EDT 2017 multivitamin with minerals tablet 1 tab TABLET Oral 1 Time Daily SunNov 20 14:10:00 EDT 2017December 01 01:00:00 ED2017 cholecalciferol (vitamin D3) 50,000 unit capsule 1 tab CAPSULE Oral 2 Times Weekly for 12 Weeks SunNov 21 09:00:00 ED2017December 01:: ED2017 Colace 100 mg capsule 100mg CAPSULE Oral 2 Times Daily SunNov 19 21:00:00 ED2017December 01:00:00 ED2017 Calcium 600 + D(3) 600 mg (1,500 mg)-400 unit tablet 2 tabs TABLET Oral 1 Time Daily SunNov 20 09:00:00 ED2017Nov 24 12:07:00 ED2017 lisinopril 20 mg tablet 20 mg Oral 1 Time Daily SunNov 17 09:00:00 2017December 01::2017 TUBErsol 5 tub. unit/0.1 mL intradermal injection solution 0.1 ml VIAL (ML) Intradermal 1 Time Weekly for 2 Weeks (PPD) 1st injection upon admission. Read between 48 and 72 hours and give 2nd injection 1 week after the 1st if result is negative. If positive result, proceed with chest x-ray to rule out active disease. Sun Nov 18:00:00 ED2017December 01:: ED2017 TUBErsol 5 tub. unit/0.1 mL intradermal injection solution Read Results VIAL (ML) Other 1 Time Weekly for 2 Weeks Read results between 48-72 hours after 1st and 2nd 1 week apart. If positive do chest x-ray to rule out active disease. SunNov 20 01:00:00 2017December 01::2017 Acetaminophen Extra Strength 500 mg tablet 2 TABLET Oral PRN Every 6 Hours SunNov 16 19:30:00 2017Nov 20 14:11:00 2017 ramipril 10 mg capsule 1 CAPSULE Oral Ev shemar 1 Day SunNov 17 09:00:00 2017Nov 17 08:45:00 2017 metFORMIN ER 500 mg tablet,extended release 24 hr 1 TABLET, EXTENDED RELEASE 24 HR Oral Every 1 Day SunNov 17 09:00:00 2017December 01 01:00:00 2017 traMADol 50 mg tablet 50 mg 1 TABLET Ora l PRN Every 4 Hours SunNov 16 01:00:00 2017Nov 20 14:12:00 EDT 2017 atorvastatin 20 mg tablet 1 TABLET Oral Every 1 Day SunNov 17 09:00:00 EDT 2017December 01 01:00:00 EDT 2017 Acetaminophen Extra Strength 500 mg tablet 1000mg TABLET Oral PRN Every 6 Hours SunNov 20 14:00:00 EDT 2017December 01 01:00:00 EDT 2017 traMADol 50 mg tablet 1 TABLET Oral PRN Every 4 Hours SunNov 20 14:10:00 EDT 2017December 01 01:00:00 EDT 2017 Problems Active Concerns * Displaced bicondylar fracture of left tibia, subsequent encounter for closed fracture with routine healing* Code: * Start Date: SunNov 16 00:00:00 EDT 2017 * End Date: * Text: * Other intraarticular fracture of lower end of left radius, subsequent encounter for closed fracturewith routine healing* Code: * Start Date: SunNov 16 00:00:00 EDT 2017 * End Date: * Text: * Laceration without foreign body, left lower leg, subsequent encounter* Code: * Start Date: SunNov 16 00:00:00 EDT 2017 * End Date: * Text: * Essential (primary) hypertension* Code: * Start Date: SunNov 16 00:00:00 EDT 2017 * End Date: * Text: * Hyperlipidemia, unspecified* Code: * Start Date: SunNov 16 00:00:00 EDT 2017 * End Date: * Text: * Type 2 diabetes mellitus without complications* Code: * Start Date: SunNov 16 00:00:00 EDT 2017 * End Date: * Text: * Personal history of transient ischemic attack (TIA), and cerebral infarction without residual deficits* Code: * Start Date: SunNov 16 00:00:00 EDT 2017 * End Date: * Text: * Age-related osteoporosis with current pathological fracture, unspecified site, subsequent encounterfor fracture with routine healing* Code: * Start Date: SunNov 16 00:00:00 EDT 2017 * End Date: * Text: * Slow transit constipation* Code: * Start Date: SunNov 16 00:00:00 EDT 2017 * End Date: * Text: * Vitamin D deficiency, unspecified* Code: * Start Date: SunNov 16 00:00:00 EDT 2017 * End Date: * Text: Reason for Referral Past Medical History
--- OUTSIDE RECORDS SUMMARY | 2025-01-29 20:57 | XMS_ITS | Encounter Summary ---
Author Organization [facility] Healthcare Address [address] [place] [address] Care Team Providers Care Community Service Coordinator Name Role Phone Madhu Cheema MD Primary Care Provider [phone] Dianelys Nieves MD Unavailable [phone] Jaron Lee MD Unavailable [phone] Freddie Madrid MD Unavailable [phone] Encounter Details Date Type Department Care Team (Late st Contact Info) Description 07/27/2022 Telephone [facility] Specialty Services [address] [place] [address] Miscellaneous, Not In File Social History Tobacco Use Types Packs/Day Years [...] on file 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 Gender Identity Not on file Sexual Orientation [...] on filedocumented in this encounter Care Teams Community Service Coordinator Relationship Specialty Start Date End Date Madhu Cheema MD [address] [place] [address] [address] Melendez [address] [address] PCP - General 10/04/16 Dianelys Nieves MD [address] [place] [address] Referring Physician Plastic Surgery 02/27/18 Jaron Lee MD [address] [place] [address] Consulting Physician Gastroenterology 09/02/18 Freddie Madrid MD [address] [place] [address] Consulting Physician Bone Health 05/29/22 documented as of this encounter
--- OUTSIDE RECORDS SUMMARY | 2025-01-29 20:58 | XMS_ITS | Referral Summary ---
Author Organization [facility] Address [address] [place] [address] Care Team Providers Care Route Inspector Name Role Phone Dewey Cheema MD Primary Care Provider [phone] Dianelys Nieves MD Unavailable [phone] Jaron Lee MD Unavailable [phone] Freddie Madrid MD Unavailable [phone] Encounters Date Type Department Care Team Description 01/28/2025 Telephone [facility] Specialty [facility] [address] [place] [address] 7th [place] [address] Jered Reynolds RN 01/08/2025 1:30 PM CDT Office Visit [address] [place] [phone] Dewey Cheema MD Essential (primary) hypertension (Primary Dx); Type 2 diabetes mellitus with other specified complication, without long-term current use of insulin (HCC); Current smoker; Stage 3a chronic kidney disease (HCC); Chronic cough; Unexplained weight loss; Night sweats; Family history of lung cancer 12/23/[address] [place] [id number] [facility] 5th [place] [address] [place] [address] Freddie Madrid MD Treatment Plan Update (Continue reclast.) 12/23/2024 4:50 PM CDT Lab [facility] Endocrinology Metabolism and Lipid [address] [place] [address] 5th [place] [address] [place] [address] Osteoporosis, unspecified osteoporosis type, unspecified pathological fracture presence 12/23/2024 2:40 PM CDT Office Visit [address] 5th [place] [address] [place] [address] Freddie Madrid MD Osteoporosis, unspecified osteoporosis type, unspecified pathological fracture presence (Primary Dx) 12/23/2024 2:10 PM CDT Clinical Support [address] 5th [place] [address] [place] [address] Osteoporosis, unspecified osteoporosis type, unspecified pathological fracture presence (Primary Dx); Osteopenia, unspecified location 11/25/2024 9:00 AM CDT Ancillary Procedure [facility] [address] [facility] [address] [place] [phone] Cardiac pacemaker in situ; CHB (complete heart block) (HCC) 11/13/2024 Results Follow-Up [facility] Gastroenterology [address] [place] [address] 12th [address] [place] [id number] Yessy Coppola MD Surgical pathology 11/11/2024 12:32 PM CDT Anesthesia Event [facility] Digestive Disease [address] [place] [id number] Mel Sánchez MD Weinzettel, Aaron M., PERSONAL BANKING OFFICER 11/11/2024 12:30 PM CDT - 11/11/2024 1:15 PM CDT Surgery [facility] Digestive Disease [address] [address] Yessy Coppola MD COLON REMOVAL SNARE 11/11/2024 11:17 AM CDT - 11/11/2024 2:25 PM CDT Hospital Encounter [facility] [address] [facility] [address] [place] [address] Yessy Coppola MD History of adenomatous polyp of colon Discharge Disposition: Discharge to home or self care 11/05/2024 Telephone [facility] Gastroenterology [address] [facility] 12th [place] [address] [place] [phone] Rosalba Quach LPN GI Procedure/Anti-Coagu lant 11/04/2024 Telephone [facility] Specialty Services [address] [place] [address] Elham Ball, DIANA GI Preprocedure from Last 3 Months Allergies Active Allergy Reactions Criticality Noted Date Comments Aspirin Swelling Medium Reaction: Swelling, Codeine Other (See comments) Low Reaction: Latex Other (See comments) Low Reaction: Penicillins Itching,Swelling Medium Reaction: Itching, Swelling, Medications cholecalciferol (VITAMIN D-3) 3,000 unit tablet Take 1 tablet (3,000 Units total) by mouth daily Active Easy Comfort Lancets 30 gauge misc Active True Comfort Pro Alcohol Pads pads, medicated Active calcium carbonate (CALCIUM 500 ORAL) Take by mouth Active OneTouch Verio test strips stripIndications:Type 2 diabetes mellitus with other specified complication, without long-term current use of insulin (HCC) MONITOR FSBS ONCE DAILY 100 strip 3 025 Active clopidogreL (PLAVIX) 75 mg tabletIndications:Perso nal history of transient ischemic attack (TIA), and cerebral infarction without residual deficits TAKE 1 TABLET BY MOUTH EVERY DAY 90 tablet 1 025 Active empagliflozin (JARDIANCE) 25 mg tabletIndications:type 2 diabetes mellitus Take 1 tablet (25 mg total) by mouth daily 90 tablet 025 Active varenicline tartrate (CHANTIX KIM) 0.5 mg (11)- 1 mg (42) tabletIndications:Shanda nt smoker Use as directed on package instructio ns, try to quit smoking after 1 week. 53 tablet 025 2024 Active chlorthalidone (HYGROTON) 25 mg tabletIndications:Essen tial (primary) hypertension TAKE 1/2 TABLET BY MOUTH DAILY 45 tablet 1 025 Active ramipriL (ALTACE) 10 mg capsuleIndications:Essjonn ntial (primary) hypertension TAKE 1 CAPSULE BY MOUTH EVERY DAY 90 capsule 1 025 Active atorvastatin (LIPITOR) 20 mg tabletIndications:Pure hypercholesterolemia TAKE 1 TABLET BY MOUTH EVERY DAY 90 tablet 1 025 Active ramipriL (ALTACE) 10 mg capsuleIndications:Esse ntial (primary) hypertension TAKE 1 CAPSULE BY MOUTH EVERY DAY 90 capsule 1 024 2024 Discontinued atorvastatin (LIPITOR) 20 mg tabletIndications:Pure hypercholesterolemia TAKE 1 TABLET BY MOUTH EVERY DAY 90 tablet 1 024 2024 Discontinued chlorthalidone (HYGROTON) 25 mg tabletIndications:Essen tial (primary) hypertension TAKE 1/2 TABLET BY MOUTH DAILY 45 tablet 025 2024 Discontinued Active Problems Problem Noted Date Diagnosed Date Chronic cough 01/08/2025 Assessment & Plan (01/08/2025 1:40 PM CDT): In the setting of chronic smoking, night sweats, weight loss, I recommend further evaluation with lung CT. Because she has not smoked 20+ pack years, she does not meet criteria for the lung cancer screening protocol. Will scheduled standard chest CT. She also has a family HX lung cancer in her mother. Complete heart block 09/01/2024 Visit for wound check 06/25/2024 Cardiac pacemaker in situ 06/19/2024 Overview (06/19/2024): Biotronik Amvia Edge Dual Pacemaker. Dx; CHB. DOI 06/19/2024- Biotronik remote. Stage 3a chronic kidney disease 01/02/2024 Assessment & Plan (01/08/2025 1:17 PM CDT): CKD is stable. She fluctuates between CKD II-III. Continue periodic monitoring Assessment & Plan (06/16/2024 2:45 PM DIRECTOR DESIGN): Mildly worse when last checked. May be in part related to diuretic. Recheck labs today. Unexplained weight loss 12/20/2023 Assessment & Plan (12/20/2023 3:06 PM CDT): 10 lbs over past 6 months. No localizing SX. Benign exam. Decreased diet due to staged dental work she is having done, which is likely contributing to weight loss. Up to date on colonoscpy. Schedule mammogram. Current smoker 09/02/2018 Assessment & Plan (01/08/2025 1:22 PM CDT): Smoking cessation counseling: We discussed the importance of smoking cessation. Therapeutic options discussed included nicotine replacement therapy, Chantix, Wellbutrin, Acupuncture, Hypnosis, and Behavioral therapy. I spent 4 minutes counseling the patient on smoking cessation She was previously unable to afford medication in the distant past. Will try her on chantix.. Assessment & Plan (06/16/2024 2:33 PM DIRECTOR DESIGN): Smoking cessation counseling: We discussed the importance of smoking cessation. Therapeutic options discussed included nicotine replacement therapy, Chantix, Wellbutrin, Acupuncture, Hypnosis, and Behavioral therapy. I spent 4 minutes counseling the patient on smoking cessation Assessment & Plan (12/20/2023 2:54 PM CDT): Smoking cessation counseling: We discussed the importance of smoking cessation. Therapeutic options discussed included nicotine replacement therapy, Chantix, Wellbutrin, Acupuncture, Hypnosis, and Behavioral therapy. I spent 4 minutes counseling the patient on smoking cessation Assessment & Plan (06/04/2023 1:56 PM DIRECTOR DESIGN): Smoking cessation counseling: We discussed the importance of smoking cessation. Therapeutic options discussed included nicotine replacement therapy, Chantix, Wellbutrin, Acupuncture, Hypnosis, and Behavioral therapy. I spent 4 minutes counseling the patient on smoking cessation Assessment & Plan (11/27/2022 2:38 PM CDT): Smoking cessation counseling: We discussed the importance of smoking cessation. Therapeutic options discussed included nicotine replacement therapy, Chantix, Wellbutrin, Acupuncture, Hypnosis, and Behavioral therapy. I spent 4 minutes counseling the patient on smoking cessation Assessment & Plan (05/29/2022 1:32 PM CDT): Smoking cessation counseling: We discussed the importance of smoking cessation. Therapeutic options discussed included nicotine replacement therapy, Chantix, Wellbutrin, Acupuncture, Hypnosis, and Behavioral therapy. I spent 4 minutes counseling the patient on smoking cessation Assessment & Plan (12/12/2021 1:13 PM CDT): Smoking cessation counseling: We discussed the importance of smoking cessation. Therapeutic options discussed included nicotine replacement therapy, Chantix, Wellbutrin, Acupuncture, Hypnosis, and Behavioral therapy. I spent 4 minutes counseling the patient on smoking cessation Assessment & Plan (05/23/2021 1:26 PM CDT): Smoking cessation counseling: We discussed the importance of smoking cessation. Therapeutic options discussed included nicotine replacement therapy, Chantix, Wellbutrin, Acupuncture, Hypnosis, and Behavioral therapy. I spent 4 minutes counseling the patient on smoking cessation Assessment & Plan (11/15/2020 1:12 PM CDT): Smoking cessation counseling: We discussed the importance of smoking cessation. Therapeutic options discussed included nicotine replacement therapy, Chantix, Wellbutrin, Acupuncture, Hypnosis, and Behavioral therapy. I spent 4 minutes counseling the patient on smoking cessation Assessment & Plan (05/17/2020 1:11 PM CDT): Smoking cessation counseling: We discussed the importance of smoking cessation. Therapeutic options discussed included nicotine replacement therapy, Chantix, Wellbutrin, Acupuncture, Hypnosis, and Behavioral therapy. I spent 4 minutes counseling the patient on smoking cessation Assessment & Plan (06/23/2019 1:31 PM DIRECTOR DESIGN): Smoking cessation counseling: We discussed the importance of smoking cessation. Therapeutic options discussed included nicotine replacement therapy, Chantix, Wellbutrin, Acupuncture, Hypnosis, and Behavioral therapy. I spent 4 minutes counseling the patient on smoking cessation Assessment & Plan (05/19/2019 12:08 PM CDT): Smoking cessation counseling: We discussed the importance of smoking cessation. Therapeutic options discussed included nicotine replacement therapy, Chantix, Wellbutrin, Acupuncture, Hypnosis, and Behavioral therapy. I spent 4 minutes counseling the patient on smoking cessation Assessment & Plan (02/10/2019 12:29 PM CDT): Smoking cessation counseling: We discussed the importance of smoking cessation. Therapeutic options discussed included nicotine replacement therapy, Chantix, Wellbutrin, Acupuncture, Hypnosis, and Behavioral therapy. I spent 4 minutes counseling the patient on smoking cessation Assessment & Plan (09/02/2018 11:54 AM DIRECTOR DESIGN): Smoking cessation counseling: We discussed the importance of smoking cessation. Therapeutic options discussed included nicotine replacement therapy, Chantix, Wellbutrin, Acupuncture, Hypnosis, and Behavioral therapy. I spent 4 minutes counseling the patient on smoking cessation Diabetes mellitus 02/25/2018 Assessment & Plan (01/08/2025 1:26 PM CDT): Diabetes is stable. Continue current treatment regimen. Dietary recommendations for ADA diet. Counselled on Regular aerobic exercise. Diabetes will be reassessed in 6 months. Assessment & Plan (09/22/2024 2:02 PM DIRECTOR DESIGN): Diabetes is controlled. Continue current treatment regimen. Dietary recommendations for ADA diet. Counselled on Regular aerobic exercise. Diabetes will be reassessed in 6 months. Assessment & Plan (06/16/2024 2:46 PM DIRECTOR DESIGN): Diabetes is stable. Continue current treatment regimen. Dietary recommendations for ADA diet. Counselled on Regular aerobic exercise. Discussed foot care. Reminded to get yearly retinal exam. Diabetes will be reassessed in 6 months. If kidney function remains low, the will replace metformin with an alternative medication. Assessment & Plan (12/20/2023 2:57 PM CDT): Diabetes is stable. Continue current treatment regimen. Dietary recommendations for ADA diet. Counselled on Regular aerobic exercise. Diabetes will be reassessed in 6 months. Assessment & Plan (06/04/2023 2:22 PM DIRECTOR DESIGN): Diabetes is stable. Continue current treatment regimen. Dietary recommendations for ADA diet. Counselled on Regular aerobic exercise. Discussed foot care. Reminded to get yearly retinal exam. Diabetes will be reassessed in 6 months. Assessment & Plan (11/27/2022 2:39 PM CDT): Diabetes is stable. Continue current treatment regimen. Dietary recommendations for ADA diet. Counselled on Regular aerobic exercise. Diabetes will be reassessed in 6 months. Assessment & Plan (05/29/2022 1:40 PM CDT): Diabetes is stable. Continue current treatment regimen. Dietary recommendations for ADA diet. Advised to monitor FSBS every day Counselled on Regular aerobic exercise. Discussed foot care. Reminded to get yearly retinal exam. Diabetes will be reassessed in 6 months. Assessment & Plan (12/12/2021 1:15 PM CDT): Diabetes is stable. Continue current treatment regimen. Dietary recommendations for ADA diet. Counselled on Regular aerobic exercise. Diabetes will be reassessed in 6 months. Assessment & Plan (05/23/2021 1:50 PM CDT): Diabetes is stable and controlled. Continue current treatment regimen. Dietary recommendations for ADA diet. Regular aerobic exercise. Discussed foot care. Reminded to get yearly retinal exam. Diabetes will be reassessed in 6 months. Assessment & Plan (11/15/2020 1:15 PM CDT): Diabetes is controlled. Continue current treatment regimen. Regular aerobic exercise. Diabetes will be reassessed in 6 months. Assessment & Plan (05/17/2020 1:21 PM CDT): Diabetes is controlled. Continue current treatment regimen. Dietary recommendations for ADA diet. Regular aerobic exercise. Discussed foot care. Reminded to get yearly retinal exam. Diabetes will be reassessed in 6 months. Assessment & Plan (05/19/2019 12:10 PM CDT): Diabetes is controlled. Continue current treatment regimen. Dietary recommendations for ADA diet. Regular aerobic exercise. Diabetes will be reassessed in 6 months. Assessment & Plan (02/10/2019 12:40 PM CDT): Diabetes is controlled. Continue current treatment regimen. Dietary recommendations for ADA diet. Regular aerobic exercise. Diabetes will be reassessed in 3 months. Assessment & Plan (09/02/2018 11:41 AM DIRECTOR DESIGN): Diabetes is controlled. Continue current treatment regimen. Dietary recommendations for ADA diet. Regular aerobic exercise. Discussed foot care. Reminded to get yearly retinal exam. Diabetes will be reassessed in 6 months. Assessment & Plan (02/27/2018 11:49 AM CDT): Diabetes is improving with treatment. Continue current treatment regimen. Diabetes will be reassessed in 6 months. Essential (primary) hypertension 02/25/2018 Assessment & Plan (01/08/2025 1:16 PM CDT): Hypertension is stable Continue current treatment regimen. Regular aerobic exercise. Continue current medications. Blood pressure will be reassessed at the next regular appointment. Assessment & Plan (09/22/2024 1:53 PM DIRECTOR DESIGN): Hypertension is stable Continue current treatment regimen. Regular aerobic exercise. Continue current medications. Blood pressure will be reassessed at the next regular appointment. Assessment & Plan (06/16/2024 2:45 PM DIRECTOR DESIGN): HTN is worsening. Discussed options. Add amlodipine 2.5mg every day. Recheck in 2-3 months. Assessment & Plan (12/20/2023 2:55 PM CDT): Hypertension is stable Continue current treatment regimen. Regular aerobic exercise. Stop smoking. Continue current medications. Blood pressure will be reassessed at the next regular appointment. Assessment & Plan (06/04/2023 1:56 PM DIRECTOR DESIGN): Hypertension is stable Continue current treatment regimen. Regular aerobic exercise. Stop smoking. Continue current medications. Blood pressure will be reassessed at the next regular appointment. Assessment & Plan (11/27/2022 2:37 PM CDT): Hypertension is stable Continue current treatment regimen. Regular aerobic exercise. Stop smoking. Continue current medications. Blood pressure will be reassessed at the next regular appointment. Assessment & Plan (05/29/2022 1:33 PM CDT): Hypertension is stable Continue current treatment regimen. Weight loss. Regular aerobic exercise. Continue current medications. Blood pressure will be reassessed at the next regular appointment. Assessment & Plan (12/12/2021 1:14 PM CDT): Hypertension is stable Continue current treatment regimen. Regular aerobic exercise. Stop smoking. Continue current medications. Blood pressure will be reassessed at the next regular appointment. Assessment & Plan (05/23/2021 1:43 PM CDT): Hypertension is stable Continue current treatment regimen. Weight loss. Regular aerobic exercise. Stop smoking. Continue current medications. Blood pressure will be reassessed at the next regular appointment. Assessment & Plan (11/15/2020 1:14 PM CDT): Hypertension is stable Continue current treatment regimen. Weight loss. Regular aerobic exercise. Continue current medications. Blood pressure will be reassessed at the next regular appointment. Assessment & Plan (05/17/2020 1:07 PM CDT): Hypertension is stable Continue current treatment regimen. Weight loss. Regular aerobic exercise. Continue current medications. Blood pressure will be reassessed at the next regular appointment. Assessment & Plan (06/23/2019 1:30 PM DIRECTOR DESIGN): Hypertension is stable Continue current treatment regimen. Continue current medications. Blood pressure will be reassessed at the next regular appointment. Assessment & Plan (05/19/2019 12:11 PM CDT): Hypertension is controlled Continue current treatment regimen. Regular aerobic exercise. Stop smoking. Continue current medications. Blood pressure will be reassessed at the next regular appointment. Assessment & Plan (02/10/2019 12:39 PM CDT): Hypertension is mild. Continue current treatment regimen. Weight loss. Regular aerobic exercise. Continue current medications. Resume chlorthalidone Blood pressure will be reassessed in 3 months. Assessment & Plan (09/02/2018 11:51 AM DIRECTOR DESIGN): Hypertension is mild. Weight loss. Regular aerobic exercise. Continue current medications. Add Diuretic Blood pressure will be reassessed in 3 months. Assessment & Plan (02/27/2018 11:48 AM CDT): Hypertension is improving with treatment. Continue current treatment regimen. Blood pressure will be reassessed at the next regular appointment. Vitamin D deficiency, unspecified 12/19/2017 Assessment & Plan (02/27/2018 11:43 AM CDT): Recent level was fine. Advised to take OTC vitamin D3 at 2000 units QD. Osteopenia 11/16/2017 Assessment & Plan (06/16/2024 2:50 PM DIRECTOR DESIGN): Up to date on DEXA. Followed by [facility]. Counseled on regular exercise. Assessment & Plan (06/04/2023 2:18 PM DIRECTOR DESIGN): Up to date on DEXA. Followed by [facility]. Counseled on regular exercise. Assessment & Plan (05/29/2022 1:38 PM CDT): Up to date on DEXA. Followed by [facility]. Assessment & Plan (05/23/2021 1:26 PM CDT): Last DEXA 08/23/20. Chronic idiopathic constipation 11/16/2017 Assessment & Plan (06/04/2023 2:14 PM DIRECTOR DESIGN): Chronic. Benign abdominal exam. Check labs. Advised metamucil once daily. Osteoarthritis of cervical spine 12/30/2014 History of ischemic stroke 12/29/2014 Assessment & Plan (06/16/2024 2:30 PM DIRECTOR DESIGN): Optimize CV risks. Residual from CVA including gait and speech. Assessment & Plan (06/09/2024 7:22 AM DIRECTOR DESIGN): >>ASSESSMENT AND PLAN FOR PERSONAL HISTORY OF TRANSIENT ISCHEMIC ATTACK (TIA), AND CEREBRAL INFARCTION WITHOUT RESIDUAL DEFICITS WRITTEN ON 05/29/2022 1:43 PM BY DEWEY CHEEMA MD Paperwork for Disabled parking permit filled out. History of adenomatous polyp of colon 04/23/2012 Assessment & Plan (06/16/2024 2:33 PM DIRECTOR DESIGN): Up to date on colonsocpy Assessment & Plan (06/04/2023 2:07 PM DIRECTOR DESIGN): I placed referral for colonoscopy 11/27/22, family has tried calling to schedule but has not received call back. Pure hypercholesterolemia 12/08/2011 Overview (06/04/2018): Assessment & Plan (06/16/2024 2:30 PM DIRECTOR DESIGN): I discussed ASCVD risk. I spent 15 minutes counseling on CV risk reduction. Our discussion included the followin. Healthy eating habits, including low carbohydrate diet, low starch vegetables. 2. Regular aerobic exercise plan, which can include walking, jogging, treadmill, rowing, swimming biking. I recommend targeting the equivalent of 10K steps daily most days of the week. 3. Optimize BP control. Continue current regimen. Assessment & Plan (06/04/2023 2:22 PM DIRECTOR DESIGN): I discussed ASCVD risk. I spent 15 minutes counseling on CV risk reduction. Our discussion included the followin. Healthy eating habits, including low carbohydrate diet, low starch vegetables. 2. Regular aerobic exercise plan, which can include walking, jogging, treadmill, rowing, swimming biking. I recommend targeting the equivalent of 10K steps daily most days of the week. 3. Optimize BP control. Continue current regimen. Assessment & Plan (05/29/2022 1:21 PM CDT): I discussed ASCVD risk. I spent 15 minutes counseling on CV risk reduction. Our discussion included the followin. Healthy eating habits, including low carbohydrate diet, low starch vegetables. 2. Regular aerobic exercise plan, which can include walking, jogging, treadmill, rowing, swimming biking. I recommend targeting the equivalent of 10K steps daily most days of the week. 3. Optimize BP control. Continue current regimen. Assessment & Plan (05/23/2021 1:26 PM CDT): I spent 15 minutes counseling her on CV risk reduction. Our discussion included the followin. Healthy eating habits, including low carbohydrate diet, low starch vegetables. We discussed intermittent fasting and paleo diets. 2. Regular aerobic exercise plan, which can include walking, jogging, treadmill, rowing, swimming biking. I recommend targeting the equivalent of 20K steps daily most days of the week. 3. Optimize BP control. Continue current regimen. Assessment & Plan (05/17/2020 1:06 PM CDT): I spent 15 minutes counseling her on CV risk reduction. Our discussion included the followin. Healthy eating habits, including low carbohydrate diet, low starch vegetables. We discussed intermittent fasting and paleo diets. 2. Regular aerobic exercise plan, which can include walking, jogging, treadmill, rowing, swimming biking. I recommend targeting the equivalent of 20K steps daily most days of the week. 3. Optimize BP control. 4. Assessment of ASCVD risk and recommendations how to mitigate this risk.discussion was consistent with the 5 A s approach. Continue current regimen. Assessment & Plan (09/02/2018 11:26 AM DIRECTOR DESIGN): I spent 15 minutes counseling her on CV risk reduction. Our discussion included the followin. Healthy eating habits, including low carbohydrate diet, low starch vegetables. We discussed intermittent fasting and paleo diets. 2. Regular aerobic exercise plan, which can include walking, jogging, treadmill, rowing, swimming biking. I recommend targeting the equivalent of 20K steps daily most days of the week. 3. Optimize BP control. 4. Taking aspirin. 5. Assessment of ASCVD risk and recommendations how to mitigate this risk.discussion was consistent with the 5 A s approach. Continue current regimen. Resolved Problems Problem Noted Date Diagnosed Date Resolved Date Carpal tunnel syndrome 04/04/201808/30 Left wrist fracture 12/07/2017 02/07/20 18 Closed fracture of left tibial plateau 11/21/2017 02/06/2018 Displaced bicondylar fractur e of left tibia, subsequent encounter for closed fracture with routine healing 11/16/2017 08/30/2018 Delayed union of distal radius fracture 11/16/2017 08/30/2018 Family history of malignant neoplasm of colon 12/05/19 12 02/06/2018 Obesity 12/05/2011 06/04/2023 Overview (09/02/2018): Assessment & Plan (05/29/2022 1:32 PM CDT): Obesity is unchanged. Discussed the patient's BMI. The BMI is above average; BMI management plan is completed. General weight loss/lifestyle modification strategies discussed (elicit support from others; identify saboteurs; non-food rewards, etc). Assessment & Plan (05/23/2021 1:48 PM CDT): Obesity is unchanged. Discussed the patient's BMI. The BMI is above average; BMI management plan is completed. General weight loss/lifestyle modification strategies discussed (elicit support from others; identify saboteurs; non-food rewards, etc). Counseled on dietary options including mediterranean diet and intermittent fasting Assessment & Plan (11/15/2020 1:12 PM CDT): Obesity is improving with lifestyle modifications. Discussed the patient's BMI. The BMI is above average; BMI management plan is completed. General weight loss/lifestyle modification strategies discussed (elicit support from others; identify saboteurs; non-food rewards, etc). Counseled on dietary options including mediterranean diet and intermittent fasting Assessment & Plan (05/17/2020 1:06 PM CDT): Obesity is unchanged. Discussed the patient's BMI. The BMI is above average; BMI management plan is completed. General weight loss/lifestyle modification strategies discussed (elicit support from others; identify saboteurs; non-food rewards, etc). Counseled on dietary options including mediterranean diet and intermittent fasting Assessment & Plan (02/10/2019 12:29 PM CDT): Obesity is mild. Discussed the patient's BMI. The BMI is above average; BMI management plan is completed. General weight loss/lifestyle modification strategies discussed (elicit support from others; identify saboteurs; non-food rewards, etc). Assessment & Plan (09/02/2018 11:41 AM DIRECTOR DESIGN): Obesity is mild. Discussed the patient's BMI. The BMI is above average; BMI management plan is completed. General weight loss/lifestyle modification strategies discussed (elicit support from others; identify saboteurs; non-food rewards, etc). Immunizations Immunization Administration Dates Next Due Influenza, Quadrivalent, [place] l Culture-based MDCK, Antibiotic Free, Intramuscular 09/02/2018 Influenza, Quadrivalent, Rec ombinant, Egg Free, Preservative Free, Intramuscular 05/29/2022,05/23/2021,05/17/2020,05/19 Influenza, Quadrivalent, Spl it, Pediatric, Preservative Free, Intramuscular 04/06/2016 Influenza, Quadrivalent, Spl it, Preservative Free, Intramuscular 07/01/2015 Influenza, Trivalent, High D ose, Split, Preservative Free, Intramuscular 06/16/2024 Influenza, Trivalent, Preser vative Free, Intramuscular 05/01/2013 Influenza, Trivalent, Split, Preservative Free, Intradermal 05/04/2014,04/23/2012 Pfizer SARS-CoV-2 Monovalent Vaccination (12+ Yrs) PURPLE 02/25/2021,02/04/2021 Pneumococcal Conjugate PCV 13 05/17/2020 Pneumococcal Polysaccharide PPV23 05/23/2021, Tdap 12/05/2011 ZOSTER Recombinant 05/17/2020 Social History Tobacco Use Types Packs/Day Years Used Date Smoking Tobacco: Every Day Cigarettes 0.3 36.1 Started: 12/28/1988 Smokeless Tobacco: Never Tobacco Cessation:Ready to Q uit: Yes; Counseling Given: Yes Alcohol Use Standard Drinks/Week Comments No 0 (1 standard drink = 0.6 oz pur e alcohol) AUDIT-C Answer Date Recorded Q1: How often do you have a drink containing alcohol? Never 11/11/2024 Q2: How many drinks containi ng alcohol do you have on a typical day when you are drinking? Patient does not drink Q3: How often do you have si x or more drinks on one occasion? Never 11/11/2024 PHQ-2 Answer Date Recorded PHQ-2 Total Score [...] making you feel afraid or unsafe? 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 Not on file Not on file Not on file Last Filed Vital Signs Vital Sign Reading Time Taken Comments Blood Pressure 116/62 01/08/2025 1:08 PM CDT Pulse 76 01/08/2025 1:08 PM CDT Temperature 36.7 C (98 F) 01/08/2025 1:08 PM CDT Respiratory Rate 14 11/11/2024 1:40 PM CDT Oxygen Saturation 98% 01/08/2025 1:08 PM CDT Inhaled Oxygen Concentration - - Weight 51.3 kg (113 lb 1.6 oz) 01/08/2025 1:08 P M CDT Height 149.9 cm (4' 11) 01/08/2025 1:08 PM CDT Body Mass Index 22.84 01/08/2025 1:08 PM CDT Plan of Treatment Scheduled Procedures Name Priority Associated Diagnoses Date/Ti me COLONOSCOPY Open Access History of adenomatous polyp of colon COLONOSCOPY History of colonic polyps COLONOSCOPY History of colonic polyps Procedures Procedure Name Priority Date/Time Associated Diagnosis Comments POCT HEMOGLOBIN A1C Routine 01/08/2025 1:20 PM CDT Type 2 diabetes mellitus with other specified complication, without long-term current use of insulin (HCC) PTH Routine 12/23/2024 3:51 PM CDT Osteoporosis, unspecified osteoporosis type, unspecified pathological fracture presence VITAMIN D 25 HYDROXY Routine 12/23/2024 3:51 PM CDT Osteoporosis, unspecified osteoporosis type, unspecified pathological fracture presence COMPREHENSIVE METABOLIC PANEL Routine 12/23/2024 3:51 PM CDT Osteoporosis, unspecified osteoporosis type, unspecified pathological fracture presence DEXA TBS AXIAL SKELETON BONE DENSITY 1 OR MORE SITES Schedule Routine, Read Routine (OP Routine) 12/23/2024 2:51 PM CDT Osteopenia, unspecified location DEVICE CHECK - REMOTE Routine 11/25/2024 9:24 AM CDT Cardiac pacemaker in situ CHB (complete heart block) (HCC) SURGICAL PATHOLOGY Routine 11/11/2024 12:53 PM CDT History of adenomatous polyp of colon ENDO ADD ON COLON BIOPSY 11/11/2024 12:34 PM CDT History of adenomatous polyp of colon COLON REMOVAL SNARE 11/11/2024 12:34 PM CDT History of adenomatous polyp of colon COLONOSCOPY 11/11/2024 11:56 AM CDT POCT GLUCOSE DEVICE Routine 11/11/2024 11:56 AM CDT LIPID PANEL Routine 06/16/2024 3:47 PM DIRECTOR DESIGN Essential (primary) hypertension Type 2 diabetes mellitus with other specified complication, without long-term current use of insulin (HCC) Pure hypercholesterolemia ALBUMIN CREATININE RATIO, URINE Routine 06/16/2024 3:47 PM DIRECTOR DESIGN Type 2 diabetes mellitus with other specified complication, without long-term current use of insulin (HCC) SCREENING MAMMOGRAM BILATERAL W JOHN Schedule Routine, Read Routine (OP Routine) 06/16/2024 2:07 PM DIRECTOR DESIGN Encounter for screening mammogram for malignant neoplasm of breast HEPATITIS C SCREENING Routine 02/27/2018 DIABETES EYE EXAM Routine 08/20/2017 from Last 3 Months or Most Recently Relevant to Health Maintenance Results * (ABNORMAL) POCT hemoglobin A1c (01/08/2025 1:20 PM CDT) Pathologist [facility] Hemoglobin A1C, POC 6.5(A) 4.0 - 5.6 % Blood 01/08/2025 1:20 PM CDT Dewey Cheema MD POINT OF CARE TEST ORDERA BLES Final Result * Vitamin D 25 hydroxy (12/23/2024 3:51 PM CDT) Pathologist [facility] Vitamin D 63.1 20.0 - 100.0 ng/mL [facility] Comment: VITAMIN D DEFICIENCY = LESS THAN or EQUAL TO 20 ng/mL VITAMIN D INSUFFICIENCY = 21 - 29 ng/mL VITAMIN D SUFFICIENT = 30-100 ng/mL Blood 12/23/2024 3:51 PM CDT 12/23/2024 4:11 PM CDT Ernie Zafar MD LAB BLOOD ORDERABLES Final Resul t Performing Organization Address City/[facility]/ZIP Co de Phone Number [facility] * PTH (12/23/2024 3:51 PM CDT) Pathologist [facility] Parathyroid Hormone 41.7 11.6 - 58.8 pg/mL [facility] Comment:PLEASE NOTE: REFEREN CE RANGE UPDATED EFFECTIVE 10/28/24 Blood 12/23/2024 3:51 PM CDT 12/23/2024 4:11 PM CDT Ernie Zafar MD LAB BLOOD ORDERABLES Final Resul t [facility] * Comprehensive metabolic panel (12/23/2024 3:51 PM CDT) [facility] Total Protein 7.8 6.1 - 8.4 g/dL [facility] Albumin 3.7 3.5 - 5.2 g/dL [facility] Calcium 9.8 8.6 - 10.3 mg/dL [facility] BUN 17 7 - 23 mg/dL [facility] Total Bilirubin 0.54 0.20 - 1.40 mg/dL [facility] Alk Phos, Total 121 35 - 129 IU/L [facility] AST (SGOT) 17 11 - 47 IU/L [facility] ALT (SGPT) 15 6 - 53 IU/L [facility] Creatinine 1.01 0.60 - 1.10 mg/dL [facility] Sodium 137 135 - 145 mmol/L [facility] Potassium 4.4 3.3 - 5.1 mmol/L [facility] Chloride 100 95 - 107 mmol/L [facility] CO2 Content 22 21 - 29 mmol/L [facility] Glucose 96 64 - 99 mg/dL [facility] Comment: NONFASTING GLUCOSE RANGE = 64-199 mg/dL FASTING GLUCOSE 64 - 99 = NORMAL FASTING GLUCOSE 100 - 125 = IMPAIRED FASTING GLUCOSE FASTING GLUCOSE >=126 = PROVISIONAL DIAGNOSIS OF DIABETES eGFR 60.3 >60.0 mL/min/1.7 3 m2 [facility] Blood 12/23/2024 3:51 PM CDT 12/23/2024 4:11 PM CDT us Ernie Zafar MD LAB BLOOD ORDERABLES Final Resul t [facility] * Dexa TBS Axial Skeleton Bone Density 1 or more sites (12/23/2024 2:51 PM CDT) Anatomical Region Laterality Modality Wrist, Body N/A Radiographic Mikki ging Narrative 12/24/2024 10:37 AM CDT Patient Name: Filomena Nunez Date of : 1955 Date of scan: 12/23/2024 Bone mineral density was performed on a [employer] Discovery Densitometer. Based on machine cross-calibration and precision studies the least significant changes of this densitometer is 0.024 g/cm2 at the spine, 0.020 g/cm2 at the total proximal femur, and 0.014g/cm2 at the forearm. HISTORY: This is a 69 y.o. postmenopausal female with a history of low bone mass. She reports that she has been smoking cigarettes. She has a 8.8 pack-year smoking history. She has never used smokeless tobacco. Currently on treatment with calcium, vitamin D, and anticoagulants and previously treated with denosumab (Prolia). INDICATIONS: Menopause status, history of prior wrist fracture, and history of low bone mass. FINDINGS: BONE MINERAL DENSITY OF THE LUMBAR SPINE Bone Mineral Density (BMD) of the lumbar spine was measured from L1-L4 and the average density was calculated to be 0.839 gm/cm2. This corresponds to a T-score (standard deviations from the mean of young adults) of -1.9. When compared to the previous study of 12/10/2023 there has been a -0.025 gm/cm (-2.9%) decrease in bone density that is considered significant. BONE MINERAL DENSITY OF THE PROXIMAL FEMUR Bone Mineral Density (BMD) of the right hip total was found to be 0.820 gm/cm2. This corresponds to a T-score standard deviations from the mean of young adults of -1.0. Femoral neck is 0.754 gm/cm2 with a T-score (standard deviations from the mean of young adults) of -0.9. When compared to the previous study of 12/10/2023 there has been a -0.025 gm/cm (-3.0%) decrease in bone density that is considered significant. SUMMARY: Bone mineral density shows evidence of low bone mass at the lumbar spine and moderately increased fracture risk (Osteopenia). There has been a significant decrease in bone density since previous measurement. The lumbar spine Trabecular Bone Score is 1.276 which suggests partially degraded bone microarchitecture compared to the general population. Final decisions regarding diagnostic or therapeutic recommendations should include BMD, TBS, additional clinical risk factors as well the clinical context of the patient. Please see attached TBS results for further details. ADDITIONAL COMMENTS: Postmenopausal Women and Men Over 50: Diagnostic criteria: Osteoporosis: BMD at or below -2.5 T-score; Osteopenia (low bone mass): BMD between -1.0 and -2.5 T-score. If the patient has a history of a fragility fracture, a fracture that occurred with trauma equivalent to a fall from a standing position or less, then the diagnosis is osteoporosis regardless of bone density. The history and data sections of the bone mineral density scan were prepared by Miguel A Singh(Jono) CBDT who is accredited by the International Society of Clinical Densitometry. The overall patient assessment and scan interpretation were performed by Freddie Madrid M.D. who is certified by the International Society of Clinical Densitometry. [id number] us Freddie Madrid MD IMG DXA PROCEDURES Final Result * DEVICE CHECK - REMOTE (11/25/2024 9:24 AM CDT) Anatomical Region Laterality Modality Other Narrative 12/02/2024 1:28 PM CDT Biotronik Amvia Edge Dual Pacemaker. Dx; CHB. DOI 06/19/2024-Gordy. Biotronik remote. Routine DDD Pacemaker Remote. Transmission attached. Battery status: Ok, 100% remaining battery life to MORENO. Stable lead impedances, pacing and sensing thresholds. Presenting rhythm: SIGNAL TOWER DIRECTOR. AP-0%, SIGNAL TOWER DIRECTOR-100%. No AT/AF episodes noted. No Ventricular high rate episodes. Medications: Plavix. See scanned report. Office pacemaker follow up: 09/16/2025. Biotronik remote f/u 02/24/2025. Meron Villanueva RN us Tanvir Kaminski MD [facility] PROC EDURES Final Result * Surgical pathology (11/11/2024 12:53 PM CDT) Tissue (Polyp(s), colon/colorectal, esophageal, gastric) 11/11/2024 12:53 PM CDT Tissue specimen (specimen) (Colon, Biopsy) 11/11/2024 1:07 PM CDT Narrative PATHOLOGY [facility] - 11/12/2024 6:53 PM CDT EPIC results best viewed via link to PDF [facility] Nanci Sk[facility] of Surgical Pathology [address] [facility] [place] [address] Note to Patients: This report may contain a detailed description of human tissue sent by a health care provider to the laboratory for pathologic evaluation. The content of this report is essential for diagnosis and may provide important critical findings. This information may be unfamiliar to patients to review without a medical professional present. It is advised that the patient review this report in the presence of a health care provider who can answer questions and explain the details. SURGICAL PATHOLOGY REPORT FINAL Patient Name: FILOMENA NUNEZ Gender: F : 1955 (Age: 69) Address: [address] [place] [id number] Hospital #: [id number] Taken:11/11/2024 Received:11/11/2024 Reported: 11/12/2024 Patient Type: [facility] Service: Gastro Location: Physician(s): Marvin Villa MD Thomas J Bartholet, M.D. Diagnosis: A. Colon, cecum, polypectomy: - Fragments of tubular adenoma. B. Colon, sigmoid, abnormal mucosa, biopsy: - Colonic mucosa with prolapse associated changes. - Negative for dysplasia. [facility]/11/12/2024 11:33 By this signature, I attest that the above diagnosis is based upon my personal examination of the slides(and/or other material indicated in the diagnosis). Ciaran Carvalho MD, PHD Report Electronically Reviewed and Signed Out By Ciaran Carvalho MD, PHD 11/12/2024 18:53:00 History: The patient is a 69-year-old woman presenting with a history of adenomatous polyp of colon. Operative procedure: Colon removal snare with biopsy. Specimen(s) Received: A: Cecum B: Abnormal mucosa of sigmoid colon Gross Description: Received in two formalin jars labeled with the patient's identifiers. A. Labeled cecum and consists of multiple lynn-red polypoid fragment(s) of soft tissue measuring 1.5 x 0.9 x 0.4 cm in aggregate. Also included are multiple fragments of possible vegetable material. Labeled A1. Jar 0. B. Labeled abnormal mucosa of sigmoid colon and consists of multiple red-lynn fragment(s) of soft tissue measuring 0.9 x 0.5 x 0.2 cm in aggregate. Labeled B1. Jar 0. sxst/11/11/2024 15:30 PA(s): Mae Mack By this signature, I attest that the above diagnosis is based upon my personal examination of the slides(and/or other material). Addenda/Procedures The performance characteristics of some immunohistochemical stains, fluorescence in-situ hybridization tests and immunophenotyping by flow cytometry cited in this report (if any) were determined by the Surgical Pathology and Flow Cytometry Departments at [facility] as part of an ongoing water quality analyst program and in compliance with federally mandated regulations drawn from the Clinical Laboratory Improvement Act of 1988 (CLIA '88). Some of these tests rely on the use of analyte specific reagents and are subject to specific labeling requirements by the US Food and Drug Administration. Such diagnostic tests may only be performed in a facility that is certified by the Department of Health and Human Services as a high complexity laboratory under CLIA '88. The FDA has determined that such clearance or approval is not necessary. This test is used for clinical purposes. It should not be regarded as investigational or for research. Nevertheless, federal rules concerning the medical use of analyte specific reagents require that the following disclaimer be attached to the report: This test was developed and its performance characteristics determined by the Surgical Pathology and Flow Cytometry Departments of [facility]. It has not been cleared or approved by the U. S. Food and Drug Administration. IMAGES AND SCANNED DOCUMENTS, IF INCLUDED, ONLY VIEWABLE IN PDF VERSION OF REPORT Yessy Huang MD LAB PATHOLOGY MACIE CRUZ Final Result PATHOLOGY [facility] 3rd Floor [place], [place] [phone] * Colonoscopy (11/11/2024 11:56 AM CDT) Anatomical Region Laterality Modality Other Narrative Procedure Note Yessy Huang MD - 11/11/2024 11:56 AM CDT GI ENDOSCOPY [facility] Patient Name: Filomena Nunez Procedure Date: 11/11/2024 11:56 AM Date of : 1955 Admit Type: Outpatient Age: 69 Gender: Female Attending MD: Marvin Henriquez Room: [facility] ENDOSCOPY ROOM 3 Note Status: Finalized Procedure: Colonoscopy Indications: High risk colon cancer surveillance: Personalhistory of adenoma (10 mm or greater in size) Referring MD: Dewey Cheema M.D. Providers: Yessy Huang M.D., Alonso Ramos M.D. Medicines: Monitored Anesthesia Care Complications: No immediate complications. Estimated Blood Loss: Estimated blood loss was minimal. Procedure: Pre-Anesthesia Assessment: - Prior to the procedure, a History and Physicalwas performed, and patient medications, allergies and sensitivities were reviewed. The patient'stolerance of previous anesthesia was reviewed. - Immediately prior to administration ofmedications, the patient was re-assessed for adequacy to receive sedatives. - The risks and benefits of the procedure and the sedation options and risks were discussed with the patient. All questions were answered and informed consent was obtained. The benefits, risks and alternatives of theprocedure and sedation were discussed and informed consentwas obtained. All questions were answered. Please referto the signed informed consent document in the medical record. The scope was passed under direct vision.The CF [id number] endoscope was introduced through the anus and advanced to the cecum, identified by appendiceal orifice and ileocecal valve. The colonoscopy was performed without difficulty. The patient tolerated the procedure well. The qualityof the bowel preparation was evaluated using the BBPS ([place] Bowel Preparation Scale) with scores of:Right Colon = 2 (minor amount of residual staining, small fragments of stool and/or opaque liquid, but mucosa seen well), Transverse Colon = 2 (minor amount of residual staining, small fragments of stool and/or opaque liquid, but mucosa seen well) and Left Colon= 3 (entire mucosa seen well with no residualstaining, small fragments of stool or opaque liquid). Thetotal BBPS score equals 7. The bowel preparation used was GoLYTELY via split dose instruction. The quality of the bowel preparation was good. Findings: The perianal and digital rectal examinations were normal. Non-bleeding internal hemorrhoids were found during retroflexion. The hemorrhoids were medium-sized. Multiple small and large-mouthed diverticula were found in the entire colon. A localized area of moderately thickened folds of the prolapsedmucosa was found in the sigmoid colon. Biopsies were taken with a coldforceps for histology. An 8 mm polyp was found in the cecum. The polyp was sessile. Thepolyp was removed with a cold snare. Resection and retrieval werecomplete. The exam was otherwise without abnormality. Impression: - Non-bleeding internal hemorrhoids. - Diverticulosis in the entire examined colon. - Thickened folds of the prolapsed mucosa in the sigmoid colon. Biopsied. - One 8 mm polyp in the cecum, removed with a cold snare. Resected and retrieved. - The examination was otherwise normal. Recommendation: - Await pathology results. - Resume Plavix (clopidogrel) at prior dosetomorrow. - Repeat colonoscopy in 5 years for surveillance. - Return to referring physician as previously scheduled. - We performed biopsies during your proceduretoday. If you do not receive the result from my office in7 business days, please contact my office at [phone]. Attending Participation: I was present and participated during the entire procedure, including non-storm portions. Electronically signed by Yessy Huang MD Ysesy Huang M.D. 11/11/2024 1:27:50 PM . Number of Addenda: 0 Note Initiated On: 11/11/2024 11:56 AM us Yessy Huang MD ENDOSCOPY PROCEDUR ES Final Result * POCT glucose (11/11/2024 11:56 AM CDT) Glucose, POC 110 70 - 199 mg/dL Blood 11/11/2024 11:5 6 AM CDT 11/11/2024 11:56 AM CDT us Yessy Huang MD LAB POCT ORDERABLE S - DEVICE Final Result Performing Organization Address City/[facility] Co de Phone Number [facility] [place] [address] * Albumin Creatinine Ratio, Urine (06/16/2024 3:47 PM DIRECTOR DESIGN) Creatinine ur 172.7 Not Estab. mg/dL [facility] - 01 Microalbumin, ur 14.0 Not Estab. ug/mL [facility] - 01 Microalbumin/cre at ratio 8 0 - 29 mg/g creat [facility] - 01 Comment: Normal: 0 - 29 Moderately increased: 30 - 300 Severely increased: >300 Urine 06/16/2024 3:47 PM DIRECTOR DESIGN 06/16/2024 Narrative [facility] - 06/17/2024 12:12 PM DIRECTOR DESIGN Performed at: [facility] Lab[address] [id number] Central Service Technician: Surendra Vale PhD, Phone: [phone] us Dewey Cheema MD LAB URINE ORDERABLES Kate l [facility] - 01 * Lipid panel (06/16/2024 3:47 PM DIRECTOR DESIGN) Cholesterol 166 100 - 199 mg/dL [facility] - 01 Triglycerides 83 0 - 149 mg/dL [facility] - 01 HDL Cholesterol 53 >39 mg/dL [facility] - 01 VLDL 16 5 - 40 mg/dL [facility] - 01 LDL, calculated 97 0 - 99 mg/dL [facility] - 01 Blood 06/16/2024 3:47 PM DIRECTOR DESIGN 06/16/2024 Narrative [facility] - 06/17/2024 8:19 AM DIRECTOR DESIGN Performed at: - [address] [id number] Central Service Technician: Surendra Vale PhD, Phone: [phone] us Dewey Cheema MD LAB BLOOD ORDERABLES Kate l Result Performing Organization Address [facility] Co de Phone Number [facility] - 01 * Screening Mammogram Bilateral W John (06/16/2024 2:07 PM DIRECTOR DESIGN) Anatomical Region Laterality Modality Breast Bilateral Mammography Narrative 06/17/2024 4:05 PM DIRECTOR DESIGN Mammogram Technique: Bilateral Digital Breast Tomosynthesis, Bilateral C-view 2D Screening mammogram. Views obtained: bilateral craniocaudal and bilateral mediolateral oblique. Computer Aided Detection was performed. Mammogram Findings: The present examination has been compared to prior imaging studies performed at [facility] on 10/04/2016, 06/23/2019 and 08/15/2021. The breasts are heterogeneously dense, which may obscure small masses. There is no suspicious abnormality in either breast. Impression: There is no mammographic evidence of malignancy. Annual screening mammography is recommended. OVERALL FINAL ASSESSMENT: BI-RADS CATEGORY 1: Negative. Procedure Note Brian Reed MD - 06/17/2024 Mammogram Technique: Bilateral Digital Breast Tomosynthesis, Bilateral C-view 2D Screening mammogram. Views obtained: bilateral craniocaudal and bilateral mediolateral oblique. Computer Aided Detection was performed. Mammogram Findings: The present examination has been compared to prior imaging studies performed at [facility] on 10/04/2016, 06/23/2019 and 08/15/2021. The breasts are heterogeneously dense, which may obscure small masses. There is no suspicious abnormality in either breast. Impression: There is no mammographic evidence of malignancy. Annual screening mammography is recommended. OVERALL FINAL ASSESSMENT: BI-RADS CATEGORY 1: Negative. Dewey Cheema MD IMG MAMMO PROCEDURES Kate l Result * HEPATITIS C SCREENING (02/27/2018) HEP C Normal Historical Provider HEALTH MAINTENANCE Final Result * DIABETES EYE EXAM (08/20/2017) Diabetic Eye Exam Abnormal Historical Provider HEALTH MAINTENANCE Final Result from Last 3 Months or Most Recently Relevant to Health Maintenance Insurance [facility] ADVANTAGE [facility] REF [employer] CHOICE MEDICARE PPO [employer] CHOICE MEDICARE PPO [employer] CHOICE MEDICARE PPO Advance Directives For more information, please contact: [phone] * Full Code (Latest Code Status on File) Date Activated Date Inactivated Comments 11/11/2024 11:37 AM 11/11/2024 6:25 PM * Full Code Date Activated Date Inactivated Comments 10/15/2023 2:27 PM 10/15/2023 9:31 PM Care Teams Route Inspector Relationship Specialty Start Date End Date Dewey Cheema MD [facility] [address] Melendez [address] [id number] PCP - General 10/04/16 Dianelys Nieves MD [address] [place] [address] Referring Physician Plastic Surgery 02/27/18 Jaron Lee MD [address] [place] [address] Consulting Physician Gastroenterology 09/02/18 Freddie Madrid MD [address] [place] [address] Consulting Physician Bone Health 05/29/22
--- OUTSIDE RECORDS SUMMARY | 2025-01-29 20:58 | XMS_ITS | Encounter Summary ---
Author Organization [facility] Healthcare Address [address] [place] [address] Care Team Providers Care Machine Hose Cutter Name Role Phone Madhu Cheema MD Primary Care Provider [phone] Dianelys Nieves MD Unavailable [phone] Jaron Lee MD Unavailable [phone] Freddie Madrid MD Unavailable [phone] Encounter Details Date Type Department Care Team (Late st Contact Info) Description 01/28/2025 Telephone [facility] [address] [facility] Advanced Medicine [address] [place] [address] Jered Reynolds, RN Social History Tobacco Use Types Packs/Day Years Used Date Smoking Tobacco: Every Day Cigarettes 0.3 36.1 Started: 12/28/1988 Smokeless Tobacco: Never Alcohol Use Standard Drinks/Week [...] on file Legal Sex Female 11:26 PM [employer] Gender Identity Not on file Sexual Orientation Not on file 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 documented in this encounter Plan of Treatment Scheduled Procedures Name Priority Associated Diagnoses Date/Ti me COLONOSCOPY Open Access History of adenomatous polyp of colon COLONOSCOPY History of colonic polyps COLONOSCOPY History of colonic polyps documented as of this encounter Visit Diagnoses Not on filedocumented in this encounter Care Teams Machine Hose Cutter Relationship Specialty Start Date End Date Madhu Cheema MD [address] [place] [address] DR Nora SIMON [address] [place] [id number] PCP - General 10/04/16 Dianelys Nieves MD [address] [place] [address] Referring Physician Plastic Surgery 02/27/18 Jaron Lee MD [address] [place] [address] Consulting Physician Gastroenterology 09/02/18 Freddie Madrid MD [address] [place] [address] Consulting Physician Bone Health 05/29/22 documented as of this encounter
--- OUTSIDE RECORDS SUMMARY | 2025-01-29 20:58 | XMS_ITS | Clinical Summary ---
Author Organization [facility] al Address [address] [place] [address] Care Team Providers Care Sewer Inspector Name Role Phone Dewey Cheema MD Primary Care Provider [phone] Dianelys Nieves MD Unavailable [phone] Jaron Lee MD Unavailable [phone] Frdedie Madrid MD Unavailable [phone] Allergies Active Allergy Reactions Criticality Noted Date Comments Aspirin Swelling Medium Reaction: Swelling, Codeine Other (See comments) Low Reaction: Latex Other (See comments) Low Reaction: Penicillins Itching,Swelling Medium Reaction: Itching, Swelling, Medications cholecalciferol (VITAMIN D-3) 3,000 unit tablet Take 1 tablet (3,000 Units total) by mouth daily Active Easy Comfort Lancets 30 gauge misc 021 Active True Comfort Pro Alcohol Pads pads, medicated 021 Active calcium carbonate (CALCIUM 500 ORAL) Take [...] pacemaker in situ 06/19/2024 Overview (06/19/2024): Biotronik Gregoriavia Edge Dual Pacemaker. Dx; CHB. DOI 06/19/2024-Gordy. Selvinronik remote. Stage 3a chronic kidney disease 01/02/2024 Assessment & Plan (01/08/2025 1:17 PM CDT): CKD is stable. She fluctuates between CKD II-III. Continue periodic monitoring Assessment & Plan (06/16/2024 2:45 PM REGULATORY AFFAIRS ASSISTANT): Mildly worse when last checked. May be [...] chantix.. Assessment & Plan (06/16/2024 2:33 PM REGULATORY AFFAIRS ASSISTANT): Smoking cessation counseling: We discussed the importance [...] cessation Assessment & Plan (06/04/2023 1:56 PM REGULATORY AFFAIRS ASSISTANT): Smoking cessation counseling: We discussed the importance [...] cessation Assessment & Plan (06/23/2019 1:31 PM REGULATORY AFFAIRS ASSISTANT): Smoking cessation counseling: We discussed the importance [...] cessation Assessment & Plan (09/02/2018 11:54 AM REGULATORY AFFAIRS ASSISTANT): Smoking cessation counseling: We discussed the importance [...] months. Assessment & Plan (09/22/2024 2:02 PM REGULATORY AFFAIRS ASSISTANT): Diabetes is controlled. Continue current treatment regimen. Dietary recommendations for ADA diet. Counselled on Regular aerobic exercise. Diabetes will be reassessed in 6 months. Assessment & Plan (06/16/2024 2:46 PM REGULATORY AFFAIRS ASSISTANT): Diabetes is stable. Continue current treatment regimen. [...] months. Assessment & Plan (06/04/2023 2:22 PM REGULATORY AFFAIRS ASSISTANT): Diabetes is stable. Continue current treatment regimen. [...] months. Assessment & Plan (09/02/2018 11:41 AM REGULATORY AFFAIRS ASSISTANT): Diabetes is controlled. Continue current treatment regimen. [...] appointment. Assessment & Plan (09/22/2024 1:53 PM REGULATORY AFFAIRS ASSISTANT): Hypertension is stable Continue current treatment regimen. Regular aerobic exercise. Continue current medications. Blood pressure will be reassessed at the next regular appointment. Assessment & Plan (06/16/2024 2:45 PM REGULATORY AFFAIRS ASSISTANT): HTN is worsening. Discussed options. Add amlodipine 2.5mg every day. Recheck in 2-3 months. Assessment & Plan (12/20/2023 2:55 PM CDT): Hypertension is stable Continue current treatment regimen. Regular aerobic exercise. Stop smoking. Continue current medications. Blood pressure will be reassessed at the next regular appointment. Assessment & Plan (06/04/2023 1:56 PM REGULATORY AFFAIRS ASSISTANT): Hypertension is stable Continue current treatment regimen. [...] appointment. Assessment & Plan (06/23/2019 1:30 PM REGULATORY AFFAIRS ASSISTANT): Hypertension is stable Continue current treatment regimen. [...] months. Assessment & Plan (09/02/2018 11:51 AM REGULATORY AFFAIRS ASSISTANT): Hypertension is mild. Weight loss. Regular aerobic [...] 11/16/2017 Assessment & Plan (06/16/2024 2:50 PM REGULATORY AFFAIRS ASSISTANT): Up to date on DEXA. Followed by [facility]. Counseled on regular exercise. Assessment & Plan (06/04/2023 2:18 PM REGULATORY AFFAIRS ASSISTANT): Up to date on DEXA. Followed by [facility]. Counseled on regular exercise. Assessment & Plan (05/29/2022 1:38 PM CDT): Up to date on DEXA. Followed by [facility]. Assessment & Plan (05/23/2021 1:26 PM CDT): Last DEXA 08/23/20. Chronic idiopathic constipation 11/16/2017 Assessment & Plan (06/04/2023 2:14 PM REGULATORY AFFAIRS ASSISTANT): Chronic. Benign abdominal exam. Check labs. Advised metamucil once daily. Osteoarthritis of cervical spine 12/30/2014 History of ischemic stroke 12/29/2014 Assessment & Plan (06/16/2024 2:30 PM REGULATORY AFFAIRS ASSISTANT): Optimize CV risks. Residual from CVA including gait and speech. Assessment & Plan (06/09/2024 7:22 AM REGULATORY AFFAIRS ASSISTANT): >>ASSESSMENT AND PLAN FOR PERSONAL HISTORY OF TRANSIENT ISCHEMIC ATTACK (TIA), AND CEREBRAL INFARCTION WITHOUT RESIDUAL DEFICITS WRITTEN ON 05/29/2022 1:43 PM BY DEWEY CHEEMA MD Paperwork for Disabled parking permit filled out. History of adenomatous polyp of colon 04/23/2012 Assessment & Plan (06/16/2024 2:33 PM REGULATORY AFFAIRS ASSISTANT): Up to date on colonsocpy Assessment & Plan (06/04/2023 2:07 PM REGULATORY AFFAIRS ASSISTANT): I placed referral for colonoscopy 11/27/22, family has tried calling to schedule but has not received call back. Pure hypercholesterolemia 12/08/2011 Overview (06/04/2018): Assessment & Plan (06/16/2024 2:30 PM REGULATORY AFFAIRS ASSISTANT): I discussed ASCVD risk. I spent 15 [...] regimen. Assessment & Plan (06/04/2023 2:22 PM REGULATORY AFFAIRS ASSISTANT): I discussed ASCVD risk. I spent 15 [...] regimen. Assessment & Plan (09/02/2018 11:26 AM REGULATORY AFFAIRS ASSISTANT): I spent 15 minutes counseling her on [...] etc). Assessment & Plan (09/02/2018 11:41 AM REGULATORY AFFAIRS ASSISTANT): Obesity is mild. Discussed the patient's BMI. The BMI is above average; BMI management plan is completed. General weight loss/lifestyle modification strategies discussed (elicit support from others; identify saboteurs; non-food rewards, etc). Encounters Date Type Department Care Team Description 01/28/2025 Telephone [facility] Special[facility] Infusion [facility] [address] [facility] [address] [facility] [address] 7th [place] [address] Jered Reynolds RN 01/08/2025 1:30 PM CDT Office Visit [address] [place] [phone] Dewey Cheema MD Essential (primary) hypertension (Primary Dx); Type 2 diabetes mellitus with other specified complication, without long-term current use of insulin (HCC); Current smoker; Stage 3a chronic kidney disease (HCC); Chronic cough; Unexplained weight loss; Night sweats; Family history of lung cancer 12/23/2024 4:50 PM CDT Lab [facility] Endocrinology Metabolism and Lipid [address] 5th [place] [address] [place] [address] Osteoporosis, unspecified osteoporosis type, unspecified pathological fracture presence 12/23/2024 2:40 PM CDT Office Visit [facility] [address] [facility] [address] 5th [place] [address] [place] [address] Freddie Madrid MD Osteoporosis, unspecified osteoporosis type, unspecified pathological fracture presence (Primary Dx) 12/23/2024 2:10 PM CDT Clinical Support [facility] [address] [place] [address] 5th [place] [address] [place] [phone] Osteoporosis, unspecified osteoporosis type, unspecified pathological fracture presence (Primary Dx); Osteopenia, unspecified location 12/23/[address] 5th [place] [address] [place] [phone] Freddie Madrid MD Treatment Plan Update (Continue reclast.) 11/25/2024 9:00 AM CDT Ancillary Procedure [facility] Cardiology [facility] [address] [place], [place] [phone] Cardiac pacemaker in situ; CHB (complete heart block) (HCC) 11/13/2024 Results Follow-Up [facility] Gastroenterology [address] [place] [address] [address]th [place] [address] [place] [address] Yessy Coppola MD Surgical pathology 11/11/2024 12:32 PM CDT Anesthesia Event [facility] [address] [place] [phone] Mel Sánchez MD Weinzettel, Aaron M., MAJOR ACCOUNT MANAGER 11/11/2024 12:30 PM CDT - 11/11/2024 1:15 PM CDT Surgery [facility] [address] [place] [phone] Yessy Coppola MD COLON REMOVAL SNARE 11/11/2024 11:17 AM CDT - 11/11/2024 2:25 PM CDT Hospital Encounter [facility] [address] [address] Yessy Coppola MD History of adenomatous polyp of colon Discharge Disposition: Discharge to home or self care 11/05/2024 Telephone [facility] Gastroenterology [address] [facility] 12th [place] [address] [place] [address] Rosalba Quach LPN GI Procedure/Anti-Coagu lant 11/04/[address] [facility] Specialty Services [address] [place] [address] Elham Ball, RN GI Preprocedure from Last 3 Months Immunizations Immunization Administration Dates Next Due Influenza, [...] PPV23 05/23/2021, Tdap 12/05/2011 ZOSTER Recombinant 05/17/2020 Surgical History Surgery Date Site/Laterality Comments IA ARTHROSCOPY KNEE DIAGNOST IC W/WO SYNOVIAL BX SPX Arthroscopy Knee Left - (Added by TW Conv) IA DELIVERY ONLY Section - (Added by TW Conv) SECTION x 3 FRACTURE SURGERY CARDIAC PACEMAKER PLACEMENT 06/19/2024 COLONOSCOPY Medical History Medical History Date Comments History of peptic ulcer disease Peptic Ulcer - (Added by TW Conv) History of colonic polyps Benign Polyps Of The Large Intestine - (Added by TW Conv) Personal history of other di seases of the digestive system History of diverticulitis of colon - (Added by TW Conv) Personal history of other di seases of the nervous system and sense organs History of Quigley's palsy - (A dded by TW Conv) Glaucoma Stroke (HCC) Obesity 12/05/2011 Complete heart block (HCC) Family History Medical History Relation Name Comments Diabetes Brother Terry Fields Jr. Alcohol abuse Father Terry Fields Sr. Cerebral aneurysm Father Terry Fields Sr. Hypertension Father Terry Fields Sr. Colon cancer Mother Lung cancer Mother Breast cancer Mother's Sister Diabetes Sister Broken bones Neg Hx Hip fracture Neg Hx Kyphosis Neg Hx Osteoporosis Neg Hx Ovarian cancer Neg Hx Scoliosis Neg Hx Uterine cancer Neg Hx Relation Name Status Comments Brother Terry Fields Jr. Father Terry Fields Sr. 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 No GDM, HTN/preE, PPH, PPD. Breastfed:N Last Filed Vital Signs Vital Sign Reading [...] colonic polyps COLONOSCOPY History of colonic polyps Health Maintenance Due Date Last Done Comments Dilated Eye Exam 08/20/2018 08/20/2017 Zoster Vaccine (2 of 2) 07/12/2020 05/17/2020 DTaP/Tdap/Td Vaccine (2 - Td or Tdap) 12/04/2021 12/05/2011 Covid-19 Vaccine (3 - 2023-2 5 season) 2024 02/25/2021, 02/04/2021 Influenza Vaccine (#1) 2025 , 05/29/2022, 05/23/2021, Additional history exists Albumin Creatinine Ratio, Urine 06/16/2025 06/16/2024, 06/04/2023, 06/16/2022, Additional history exists Breast Cancer Screening-Mammogram 06/16/2025 06/16/2024, 08/15/2021, 06/23/2019, Additional history exists Depression Screening 06/16/2025 06/16/2024, 06/16/2024, 06/04/2023, Additional history exists Foot Exam 06/16/2025 06/16/2024, 12/2022, 05/29/2022, Additional history exists Lipid Panel 06/16/2025 06/16/2024, 12/2022, 05/29/2022, Additional history exists Well Visit 65+ 06/16/2025 06/16/2024, 12/2022, 05/29/2022, Additional history exists Hemoglobin A1C 07/10/2025 01/08/2025, 08/31, 06/16/2024, Additional history exists Colon Cancer Screening-Colonoscopy 11/11/2025 11/11/2024, 10/15/2023, 06/06/2012 Fall Risk Assessment 11/11/2025 11/11/2024, 06/16/2024, 06/04/2023, Additional history exists eGFR 12/23/2025 12/23/2024, 10/2024, 06/16/2024, Additional history exists Osteoporosis Screening-Bone Density Scan 12/23/2026 12/23/2024, 12/10/2023, 09/18/2022, Additional history exists Hepatitis C Screening Completed 02/27/2018 Pneumococcal vaccine 65+ Completed 021, 05/17/2020, 05/27/2019 Colon Cancer Screening-CT Colonography Discontinued 11/11/2024, 10/15/2023, 06/06/2012 Colon Cancer Screening-DNA Stool Discontinued 11/11/2024, 10/15/2023, 06/06/2012 Colon Cancer Screening-FIT Discontinued 11/11, 10/15/2023, 06/06/2012 Colon Cancer Screening-Sigmoidoscopy Discontinued 11/11/2024, 10/15/2023, 06/06/2012 Hepatitis B Screening Discontinued Procedures Procedure Name Priority Date/Time Associated Diagnosis [...] CDT LIPID PANEL Routine 06/16/2024 3:47 PM REGULATORY AFFAIRS ASSISTANT Essential (primary) hypertension Type 2 diabetes mellitus with other specified complication, without long-term current use of insulin (HCC) Pure hypercholesterolemia ALBUMIN CREATININE RATIO, URINE Routine 06/16/2024 3:47 PM REGULATORY AFFAIRS ASSISTANT Type 2 diabetes mellitus with other specified complication, without long-term current use of insulin (HCC) SCREENING MAMMOGRAM BILATERAL W JOHN Schedule Routine, Read Routine (OP Routine) 06/16/2024 2:07 PM REGULATORY AFFAIRS ASSISTANT Encounter for screening mammogram for malignant neoplasm of breast HEPATITIS C SCREENING Routine 02/27/2018 DIABETES EYE EXAM Routine 08/20/2017 from Last 3 Months or Most Recently Relevant to Health Maintenance Results * (ABNORMAL) POCT hemoglobin A1c (01/08/2025 1:20 PM CDT) Pathologist [facility] Hemoglobin A1C, POC 6.5(A) 4.0 - 5.6 % Blood 01/08/2025 1:20 PM CDT Dewey Cheema MD POINT OF CARE TEST ORDERA BLES Final Result * Vitamin D 25 hydroxy (12/23/2024 3:51 PM CDT) Pathologist [facility] Vitamin D 63.1 20.0 - 100.0 ng/mL [facility] Comment: VITAMIN D DEFICIENCY = LESS THAN or EQUAL TO 20 ng/mL VITAMIN D INSUFFICIENCY = 21 - 29 ng/mL VITAMIN D SUFFICIENT = 30-100 ng/mL Blood 12/23/2024 3:51 PM CDT 12/23/2024 4:11 PM CDT Ernie Zafar MD LAB BLOOD ORDERABLES Final Resul t Performing Organization Address City/[facility]/ZIP Co de Phone Number [facility] * PTH (12/23/2024 3:51 PM CDT) Pathologist [facility] Parathyroid Hormone 41.7 11.6 - 58.8 pg/mL [facility] Comment:PLEASE NOTE: REFEREN CE RANGE UPDATED EFFECTIVE 10/28/24 Blood 12/23/2024 3:51 PM CDT 12/23/2024 4:11 PM CDT Ernie Zafar MD LAB BLOOD ORDERABLES Final Resul t [facility] * Comprehensive metabolic panel (12/23/2024 3:51 PM CDT) [facility] Total Protein 7.8 6.1 - 8.4 g/dL [...] Bone mineral density was performed on a Quincee Discovery Densitometer. Based on machine cross-calibration and [...] density scan were prepared by Miguel A Duenas) CBDT who is accredited by the International Society of Clinical Densitometry. The overall patient assessment and scan interpretation were performed by Freddie Madrid M.D. who is certified by the International Society of Clinical Densitometry. [id number] Freddie Madrid MD IMG DXA PROCEDURES Final Result * DEVICE CHECK - REMOTE (11/25/2024 9:24 AM CDT) Anatomical Region Laterality Modality Other Narrative 12/02/2024 1:28 PM CDT Biotronik Amvia Edge Dual Pacemaker. Dx; CHB. DOI 06/19/2024-Gordy. Biotronik remote. Routine DDD Pacemaker Remote. Transmission attached. Battery status: Ok, 100% remaining battery life to MORENO. Stable lead impedances, pacing and sensing thresholds. Presenting rhythm: NETWORK SYSTEMS OPERATOR. AP-0%, NETWORK SYSTEMS OPERATOR-100%. No AT/AF episodes noted. No Ventricular high [...] Biopsy) 11/11/2024 1:07 PM [address] PATHOLOGY [facility] - 11/12/2024 6:53 PM CDT EPIC results best viewed via link to PDF [facility] Nanci [facility] [place] [address] Note to Patients: This report may contain [...] Gender: F : 1955 (Age: 69) Address: [address] [place] [phone] Hospital #: [id number] Taken:11/11/2024 Received:11/11/2024 Reported: 11/12/2024 Patient Type: [facility] Service: Gastro Location: Physician(s): Marvin Villa MD Thomas J Bartholet, M.D. Diagnosis: A. Colon, cecum, polypectomy: - Fragments of tubular adenoma. B. Colon, sigmoid, abnormal mucosa, biopsy: - Colonic mucosa with prolapse associated changes. - Negative for dysplasia. [facility]/11/12/2024 11:33 By this signature, I attest [...] Surgical Pathology and Flow Cytometry Departments at [facility] as part of an ongoing quality control manager program and in compliance with federally mandated [...] Surgical Pathology and Flow Cytometry Departments of [facility]. It has not been cleared or approved by the U. S. Food and Drug Administration. IMAGES AND SCANNED DOCUMENTS, IF INCLUDED, ONLY VIEWABLE IN PDF VERSION OF REPORT Yessy Huang MD LAB PATHOLOGY MACIE CRUZ Final Result PATHOLOGY [facility] 3rd Floor [place], [place] [phone] * Colonoscopy (11/11/2024 11:56 AM CDT) Anatomical Region Laterality Modality Other Narrative Procedure Note Yessy Huang MD - 11/11/2024 11:56 AM CDT GI ENDOSCOPY [facility] Patient Name: Filomena Nunez Procedure Date: 11/11/2024 11:56 AM Date of : 1955 Admit Type: Outpatient Age: 69 Gender: Female Attending MD: Marvin Henriquez Room: [facility] ENDOSCOPY ROOM 3 Note Status: Finalized [...] scope was passed under direct vision.The CF [id number] endoscope was introduced through the anus and advanced to the cecum, identified by appendiceal orifice and ileocecal valve. The colonoscopy was performed without difficulty. The patient tolerated the procedure well. The qualityof the bowel preparation was evaluated using the BBPS ([place] Bowel Preparation Scale) with scores of:Right Colon [...] business days, please contact my office at [phone]. Attending Participation: I was present and participated during the entire procedure, including non-storm portions. Electronically signed by Yessy Huang MD Yessy Huang M.D. 11/11/2024 1:27:50 PM . Number [...] - DEVICE Final Result Performing Organization Address City/[facility] Co pr Phone Number [facility] [address] [facility] Department [place] [address] * Albumin Creatinine Ratio, Urine (06/16/2024 3:47 PM REGULATORY AFFAIRS ASSISTANT) Creatinine ur 172.7 Not Estab. mg/dL [facility] - 01 Microalbumin, ur 14.0 Not Estab. ug/mL [facility] - 01 Microalbumin/cre at ratio 8 0 - 29 mg/g creat [facility] - 01 Comment: Normal: 0 - 29 Moderately increased: 30 - 300 Severely increased: >300 Urine 06/16/2024 3:47 PM REGULATORY AFFAIRS ASSISTANT 06/16/2024 Narrative [facility] - 06/17/2024 12:12 PM REGULATORY AFFAIRS ASSISTANT Performed at: [facility] [id number] Electrotype Caster: Surendra Vale PhD, Phone: [phone] us Dewey Cheema MD LAB URINE ORDERABLES Kate l Result Performing Organization Address City/State/[facility] Co de Phone Number [facility] - 01 * Lipid panel (06/16/2024 3:47 PM REGULATORY AFFAIRS ASSISTANT) Cholesterol 166 100 - 199 mg/dL [facility] - 01 Triglycerides 83 0 - 149 mg/dL [facility] - 01 HDL Cholesterol 53 >39 mg/dL [facility] - 01 VLDL 16 5 - 40 mg/dL [facility] - 01 LDL, calculated 97 0 - 99 mg/dL [facility] - 01 Blood 06/16/2024 3:47 PM REGULATORY AFFAIRS ASSISTANT 06/16/2024 Narrative [facility] - 06/17/2024 8:19 AM REGULATORY AFFAIRS ASSISTANT Performed at: [address] [id number] Electrotype Caster: Surendra Vale PhD, Phone: [phone] us Dewey Cheema MD LAB BLOOD ORDERABLES Kate l Result Performing Organization Address [facility] Co de Phone Number [facility] - 01 * Screening Mammogram Bilateral W John (06/16/2024 2:07 PM REGULATORY AFFAIRS ASSISTANT) Anatomical Region Laterality Modality Breast Bilateral Mammography Narrative 06/17/2024 4:05 PM REGULATORY AFFAIRS ASSISTANT Mammogram Technique: Bilateral Digital Breast Tomosynthesis, Bilateral C-view 2D Screening mammogram. Views obtained: bilateral craniocaudal and bilateral mediolateral oblique. Computer Aided Detection was performed. Mammogram Findings: The present examination has been compared to prior imaging studies performed at [facility] at [facility] on 10/04/2016, 06/23/2019 and 08/15/2021. The breasts [...] compared to prior imaging studies performed at [facility] at [facility] on 10/04/2016, 06/23/2019 and 08/15/2021. The breasts are heterogeneously dense, which may obscure small masses. There is no suspicious abnormality in either breast. Impression: There is no mammographic evidence of malignancy. Annual screening mammography is recommended. OVERALL FINAL ASSESSMENT: BI-RADS CATEGORY 1: Negative. Dewey Cheema MD IMG MAMMO PROCEDURES Kate l Result * HEPATITIS C SCREENING (02/27/2018) HEP C Normal Result [facility] Historical Provider HEALTH MAINTENANCE Final Result * DIABETES EYE EXAM (08/20/2017) Diabetic Eye Exam Abnormal Result [facility] Historical Provider HEALTH MAINTENANCE Final Result from Last 3 Months or Most Recently Relevant to Health Maintenance Insurance [facility] REF HUMANA CHOICE MEDICARE PPO HU[employer]NA CHOICE MEDICARE PPO HUMANA CHOICE MEDICARE PPO Advance Directives For more information, please contact: [phone] * Full Code (Latest Code Status on File) Date Activated Date Inactivated Comments 11/11/2024 11:37 AM 11/11/2024 6:25 PM * Full Code Date Activated Date Inactivated Comments 10/15/2023 2:27 PM 10/15/2023 9:31 PM Care Teams Sewer Inspector Relationship Specialty Start Date End Date Dewey Cheema MD [facility] [address] Melendez [address] [address] PCP - General 10/04/16 Dianelys Nieves MD [address] [place] [address] Referring Physician Plastic Surgery 02/27/18 Jaron Lee MD [address] [place] [address] Consulting Physician Gastroenterology 09/02/18 Freddie Madrid MD [address] [place] [address] Consulting Physician [facility] 05/29/22
--- OUTSIDE RECORDS SUMMARY | 2025-01-29 20:58 | XMS_ITS | Clinical Summary ---
Author Organization [facility] Address [address] [place] [address] Phone Care Team Providers Care Finishing Manager Name Role Phone Unavailable Primary Care Provider Unavailabl e Social History Tobacco Use Types Packs/Day Years Used Date Smoking Tobacco: Never Assessed Comments Unknown Sex and Gender Information Value Date Recorded Sex Assigned at Not on file Legal Sex Female 7:57 AM CDT Gender Identity Not on file Sexual Orientation Not on file Plan of Treatment Health Maintenance Due Date Last Done Comments DTAP/TDAP/TD VACCINES (1 - Tdap) 1974 BREAST CANCER SCREENING 1995 COLORECTAL SCREENING 2000 Colorectal Cancer Screening 2000 FIT-DNA Q 3 years 2000 FIT/FOBT Q 1 year 2000 Flex Sig/CT Colonography Q 5 years 2000 PNEUMOCOCCAL VACCINE 50+ YEARS (1 of 1 - PCV) 04/29/20 05 ZOSTER VACCINE (1 of 2) 2005 OSTEOPOROSIS SCREENING 2020 INFLUENZA VACCINE (#1) 2025 RSV VACCINE (60+ or ) (1 - 1-dose 75+ series) 2030
--- OUTSIDE RECORDS SUMMARY | 2025-01-29 20:58 | XMS_ITS | Encounter Summary ---
Author Organization [employer] Address [address] [place] [address] Care Team Providers Care Corporate Account Executive Name Role Phone Unavailable Primary Care Provider Unavailabl e Encounter Details Date Type Department Care Team (Late st Contact Info) Description 11/23/2017 Lab Requisition [facility] Laboratory Services [address] [place] [address] Blake Solis MD [address] [place] [address] Encounter for general adult medical examination without abnormal findings Social History Tobacco Use Types Packs/Day Years Used Date Smoking Tobacco: Never Assessed Comments Unknown Sex and Gender Information Value Date Recorded Sex Assigned at Not on file Legal Sex Female 7:57 AM CDT Gender Identity Not on file Sexual Orientation Not on file documented as of this encounter Plan of Treatment Not on file documented as of this encounter Procedures Procedure Name Priority Date/Time Associated Diagnosis Comments IMMUNOFIXATION Routine 11/23/2017 5:41 AM CDT Encounter for general adult medical examination without abnormal findings CBC WITH DIFFERENTIAL Routine 11/23/2017 5:41 AM CDT Encounter for general adult medical examination without abnormal findings VITAMIN D 25 HYDROXY Routine 11/23/2017 5:41 AM CDT Encounter for general adult medical examination without abnormal findings TSH Routine 11/23/2017 5:41 AM CDT Encounter for general adult medical examination without abnormal findings PROTEIN ELECTROPHORESIS W/REFLEX,SERUM Routine 11/23/2017 5:41 AM CDT Encounter for general adult medical examination without abnormal findings PHOSPHORUS Routine 11/23/2017 5:41 AM CDT Encounter for general adult medical examination without abnormal findings PTH INTACT Routine 11/23/2017 5:41 AM CDT Encounter for general adult medical examination without abnormal findings MAGNESIUM LEVEL Routine 11/23/2017 5:41 AM CDT Encounter for general adult medical examination without abnormal findings COMPREHENSIVE METABOLIC PANEL Routine 11/23/2017 5:41 AM CDT Encounter for general adult medical examination without abnormal findings documented in this encounter Results * IMMUNOFIXATION (11/23/2017 5:41 AM CDT) Blood Venipuncture / Unknown 11/23/2017 5:41 AM CDT 11/23/2017 7:14 AM CDT Blake Solis MD CHEMISTRY ORDERABLES Final R esult [facility]# [id number] [address] [place] [address] * (ABNORMAL) PROTEIN ELECTROPHORESIS, SERUM (11/23/2017 5:41 AM CDT) TOTAL PROTEIN 6.9 6.4 - 8.3 g/dL 11/28/2017 11:00 AM T [facility] ALBUMIN SPE 3.15(L) 3.50 - 5.20 g/dL 11/28/2017 11:00 AM T [facility] - [facility] [place] ALPHA 1 GLOBULIN SPE 0.36 0.21 - 0.45 g/dL 11/28/2017 11:00 AM T [facility] ALPHA 2 GLOBULIN SPE 1.15(H) 0.50 - 1.01 g/dL 11/28/2017 11:00 AM T [facility] - [facility] [place] BETA GLOBULIN 1.02 0.60 - 1.05 g/dL 11/28/2017 11:00 AM T [facility] [place] GAMMA GLOBULIN 1.22 0.60 - 1.33 g/dL 11/28/2017 11:00 AM T [facility] SPE INTERP See Interpretation Below 11/28/2017 11:00 AM CDT [facility] Comment:Decreased albumin wi th increased alpha-2 globulins; may be seen in acute inflammation. No monoclonal gammopathy identified by immunotyping or immunofixation. EIS 11/28/17 SPE INTERPRETED BY: Kaylee Parnell MD 11/28/2017 11:[address] [facility] Blood Venipuncture / Unknown 11/23/2017 5:41 AM CDT 11/23/2017 7:14 AM CDT Blake Solis MD CHEMISTRY ORDERABLES Final R esult [facility] CLIA# [id number] [address] [place] [address] * PHOSPHORUS (11/23/2017 5:41 AM CDT) PHOSPHORUS 4.5 2.5 - 4.5 mg/dL 11/23/2017 9:[address] [facility] Blood Venipuncture / Unknown 11/23/2017 5:41 AM CDT 11/23/2017 7:14 AM CDT Blake Solis MD CHEMISTRY ORDERABLES Final R esult [facility]# [id number] [address] [place] [address] * MAGNESIUM LEVEL (11/23/2017 5:41 AM CDT) MAGNESIUM 2.0 1.6 - 2.4 mg/dL 11/23/2017 9:[address] [facility] Blood Venipuncture / Unknown 11/23/2017 5:41 AM CDT 11/23/2017 7:14 AM CDT Blake Solis MD CHEMISTRY ORDERABLES Final R esult [facility]# [id number] [address] [place] [address] * TSH (11/23/2017 5:41 AM CDT) TSH 2.80 0.27 - 4.20 uIU/mL 11/23/2017 9:01 AM CDT [facility] [employer] [facility] Blood Venipuncture / Unknown 11/23/2017 5:41 AM CDT 11/23/2017 7:14 AM CDT Blake Solis MD CHEMISTRY ORDERABLES Final R esult Performing Organization Address [facility]/ZIP Co de Phone Number [facility] [employer] [facility]# [id number] [address] [place] [address] * (ABNORMAL) VITAMIN D 25 HYDROXY (11/23/2017 5:41 AM CDT) VITAMIN D TOTAL (25OH) 11(L) 30 - 100 ng/mL 11/23/2017 9:19 AM CDT [facility] [employer] [facility] Blood Venipuncture / Unknown 11/23/2017 5:41 AM CDT 11/23/2017 7:14 AM CDT Narrative [facility] [employer] [facility] - 11/23/2017 9:19 AM CDT Interpretive Data Chart: Deficient: 0 - 20 ng/mL Insufficient: 21 - 29 ng/mL Sufficient: 30 - 100 ng/mL Increased Risk of Hypercalciuria: >100 ng/mL Toxic: >150 ng/mL Blake Solis MD CHEMISTRY ORDERABLES Final R esult Performing Organization Address City/[facility]/ZIP Co de Phone Number [facility]# [id number] [address] [place] [address] * PTH INTACT (11/23/2017 5:41 AM CDT) PTH INTACT 39.9 15.0 - 65.0 pg/mL 11/23/2017 9:19 AM [facility] [employer] LABORATORY SERVICES - [facility] Blood Venipuncture / Unknown 11/23/2017 5:41 AM CDT 11/23/2017 7:14 AM CDT Blake Solis MD CHEMISTRY ORDERABLES Final R esult [employer] SERVICES [facility] CLIA# [id number] [address] [facility] [place] [address] * (ABNORMAL) COMPREHENSIVE METABOLIC PANEL (11/23/2017 5:41 AM CDT) SODIUM 139 136 - 145 mmol/L 11/23/2017 9:01 AM [facility] [employer] LABORATORY SERVICES - . [place] POTASSIUM 4.2 3.5 - 5.0 mmol/L 11/23/2017 9:01 AM [facility] [employer] LABORATORY SERVICES - [facility] CHLORIDE 98 98 - 107 mmol/L 11/23/2017 9:01 AM [facility] [employer] LABORATORY SERVICES - [facility] CO2 27 22 - 29 mmol/L 11/23/2017 9:01 AM [facility] [employer] LABORATORY SERVICES - [facility] CALCIUM 9.5 8.6 - 10.2 mg/dL 11/23/2017 9:01 AM [facility] [employer] LABORATORY SERVICES - [facility] BUN 11 8 - 23 mg/dL 11/23/2017 9:01 AM [facility] [employer] LABORATORY SERVICES - [facility] CREATININE 0.80 0.51 - 0.95 mg/dL 11/23/2017 9:01 AM [facility] [employer] LAB[facility]ATORY SERVICES - [facility] GLUCOSE 117(H) 74 - 99 mg/dL 11/23/2017 9:01 AM [facility] [employer] LABORATORY SERVICES - [facility] TOTAL PROTEIN 7.4 6.7 - 8.6 g/dL 11/23/2017 9:01 AM [facility] [employer] LABORATORY SERVICES - [facility] ALBUMIN 3.6 3.5 - 5.2 g/dL 11/23/2017 9:01 AM CDT [facility] BILIRUBIN TOTAL 0.4 0.2 - 1.1 mg/dL 11/23/2017 9:01 AM [facility] ALKALINE PHOSPHATASE 91 35 - 104 U/L 11/23/2017 9:01 AM [facility] AST 11 <33 U/L 11/23/2017 9:01 AM [facility] ALT 12 <34 U/L 11/23/2017 9:01 AM [facility] GFR >60 >=60 mL/min/1.7 3 sq meter 11/23/2017 9:01 AM [facility] Comment: eGFR has not been validated for use in the elderly (> 70 years of age), women, patients with serious co-morbid conditions, or persons with extremes of body size or muscle mass and should also be interpreted with caution in patients with acute kidney failure, dialysis dependent patients, patients reporting exceptional dietary intake (e.g. vegetarian diet, high protein diets, creatine supplementation), and patients with severe liver disease. Based on National Kidney Disease Education Program If patient is , please refer to the GFR result. GFR, >60 >=60 mL/min/1.7 3 sq meter 11/23/2017 9:01 AM [facility] ANION GAP 14 8 - 16 mmol/L 11/23/2017 9:01 AM [facility] Blood Venipuncture / Unknown 11/23/2017 5:41 AM CDT 11/23/2017 7:14 AM T [facility] LABORATORY SERVICES [facility] - 11/23/2017 9:01 AM CDT Samples containing indocyanine green cause interferences on Total and/or Direct Bilirubin and must not be measured. us Blake Solis MD CHEMISTRY ORDERABLES Final R esult [facility] [employer] [facility] CLIA# [id number] [address] [facility] [place] [address] * (ABNORMAL) CBC WITH DIFFERENTIAL (11/23/2017 5:41 AM CDT) [facility] WBC 6.1 4.0 - 9.8 K/uL 11/23/2017 8:32 AM CDT [employer] LABORATORY SERVICES - [facility] RBC 4.02 3.90 - 4.90 M/uL 11/23/2017 8:32 AM CDT [employer] LABORATORY SERVICES - . [facility] HEMOGLOBIN 11.4(L) 11.8 - 14.8 g/dL 11/23/2017 8:32 AM CDT [employer] LABORATORY SERVICES - [facility] HEMATOCRIT 35.7 35.5 - 44.0 % 11/23/2017 8:32 AM CDT [employer] LABORATORY SERVICES - . [place] MCV 88.8 82.0 - 99.0 fL 11/23/2017 8:32 AM CDT [employer] LABORATORY SERVICES - . [facility] MCH 28.4 27.2 - 32.6 pg 11/23/2017 8:32 AM CDT [employer] LABORATORY SERVICES - [facility] MCHC 31.9 31.5 - 35.5 g/dL 11/23/2017 8:32 AM CDT [employer] LABORATORY SERVICES - . [facility] RDW 13.9 11.5 - 14.5 % 11/23/2017 8:32 AM CDT [employer] LABORATORY SERVICES - . [facility] RDW-STDEV 45.3 37.1 - 48.7 fL 11/23/2017 8:32 AM CDT [employer] LABORATORY SERVICES - . [facility] PLATELETS 394(H) 140 - 350 K/uL 11/23/2017 8:32 AM CDT [employer] LABORATORY SERVICES - [facility] [place] MPV 9.2(L) 9.3 - 12.4 fL 11/23/2017 8:32 AM CDT [employer] LABORATORY SERVICES - [facility] NEUTROPHILS 33 % 11/23/2017 8:32 AM CDT [employer] LAB[facility]ATORY SERVICES - [facility] LYMPHOCYTES 51 % 11/23/2017 8:32 AM CDT [employer] [facility]ATORY SERVICES - [facility] MONOCYTES 13 % 11/23/2017 8:32 AM CDT [employer] [facility]ATORY SERVICES - [facility] EOSINOPHILS 2 % 11/23/2017 8:32 AM CDT [employer] LAB[facility]ATORY SERVICES - [facility] BASOPHILS 1 % 11/23/2017 8:32 AM CDT [employer] LABORATORY SERVICES - . [facility] IMMATURE GRANULOCYTES 0 % 11/23/2017 8:32 AM CDT [facility] LABORATORY SERVICES - [facility] NEUTROPHIL ABSOLUTE 2.01 1.90 - 7.00 K/uL 11/23/2017 8:32 AM CDT [facility] LABORATORY SERVICES - [facility] LYMPHOCYTE ABSOLUTE 3.13 0.70 - 4.50 K/uL 11/23/2017 8:32 AM CDT [facility]ATORY SERVICES - [facility] MONOCYTE ABSOLUTE 0.77 0.10 - 1.30 K/uL 11/23/2017 8:32 AM CDT [facility]ORY SERVICES - [facility] EOSINOPHIL ABSOLUTE 0.12 0.00 - 0.70 K/uL 11/23/2017 8:32 AM CDT [facility]ATORY SERVICES [facility] BASOPHILS ABSOLUTE 0.04 0.00 - 0.20 K/uL 11/23/2017 8:32 AM CDT [facility] LABORATORY SERVICES - [facility] IMMATURE GRANULOCYTES ABSOLUTE 0.02 0.00 - 0.03 K/uL 11/23/2017 8:32 AM CDT [facility]ORY SERVICES - [facility] Blood Venipuncture / Unknown 11/23/2017 5:41 AM CDT 11/23/2017 7:14 AM CDT Blake Solis MD HEMATOLOGY ORDERABLES Final Result [facility]ORY SERVICES - [facility]# [id number] [address] [facility] [place] [address] documented in this encounter Visit Diagnoses Diagnosis Encounter for general adult medical examination without abnormal findings Routine general medical examination at a health care facility documented in this encounter
--- OUTSIDE RECORDS SUMMARY | 2025-01-29 20:58 | XMS_ITS | Encounter Summary ---
Author Organization [employer] Address [address] [place] [address] Care Team Providers Care Geological Engineering Teacher Name Role Phone Unavailable Primary Care Provider Unavailabl e Encounter Details Date Type Department Care Team (Late st Contact Info) Description 11/20/2017 Lab Requisition [facility] [address] [place] [address] Blake Solis MD [address] [place] [address] Encounter for screening for diseases of the blood and blood-forming organs and certain disorders involving the immune mechanism Social History Tobacco Use Types Packs/Day Years [...] Procedure Name Priority Date/Time Associated Diagnosis Comments CBC WITH DIFFERENTIAL Routine 11/20/2017 6:02 AM CDT Encounter for screening for diseases of the blood and blood-forming organs and certain disorders involving the immune mechanism VITAMIN D 25 HYDROXY Routine 11/20/2017 6:02 AM CDT Encounter for screening for diseases of the blood and blood-forming organs and certain disorders involving the immune mechanism HEMOGLOBIN A1C Routine 11/20/2017 6:02 AM CDT Encounter for screening for diseases of the blood and blood-forming organs and certain disorders involving the immune mechanism LIPID PANEL Routine 11/20/2017 6:02 AM CDT Encounter for screening for diseases of the blood and blood-forming organs and certain disorders involving the immune mechanism COMPREHENSIVE METABOLIC PANEL Routine 11/20/2017 6:02 AM CDT Encounter for screening for diseases of the blood and blood-forming organs and certain disorders involving the immune mechanism documented in this encounter Results * (ABNORMAL) HEMOGLOBIN A1C (11/20/2017 6:02 AM CDT) HEMOGLOBIN A1C 6.7(H) 4.0 - 6.0 % 11/20/2017 9:19 AM CDT [facility] EST. AVG GLUCOSE, A1C 146 mg/dL 11/20/2017 9:19 AM CDT [facility] [employer] [facility] Blood Venipuncture / Unknown 11/20/2017 6:02 AM CDT 11/20/2017 8:01 AM CDT Blake Solis MD CHEMISTRY ORDERABLES Final R esult Performing Organization Address [facility] Co de Phone Number [facility] [employer] [facility] [id number] [address] [facility] [place] [address] * (ABNORMAL) VITAMIN D 25 HYDROXY (11/20/2017 6:02 AM CDT) [facility] VITAMIN D TOTAL (25OH) 8(L) 30 - 100 ng/mL 11/20/2017 9:37 AM CDT [facility] [employer] [facility] Blood Venipuncture / Unknown 11/20/2017 6:02 AM CDT 11/20/2017 8:01 AM CDT Narrative [facility] - 11/20/2017 9:37 AM CDT Interpretive Data Chart: Deficient: 0 - 20 ng/mL Insufficient: 21 - 29 ng/mL Sufficient: 30 - 100 ng/mL Increased Risk of Hypercalciuria: >100 ng/mL Toxic: >150 ng/mL Blake Solis MD CHEMISTRY ORDERABLES Final R esult Performing Organization Address City/[facility]/ZIP Co de Phone Number [facility] [employer] [facility] CLIA# [id number] [address] [facility] [place] [address] * (ABNORMAL) CBC WITH DIFFERENTIAL (11/20/2017 6:02 AM CDT) [facility] WBC 6.2 4.0 - 9.8 K/uL 11/20/2017 9:02 AM CDT [employer] LABORATORY SERVICES - [facility] RBC 4.02 3.90 - 4.90 M/uL 11/20/2017 9:02 AM CDT [employer] LABORATORY SERVICES - [facility] HEMOGLOBIN 11.6(L) 11.8 - 14.8 g/dL 11/20/2017 9:02 AM CDT [employer] LABORATORY SERVICES - . [place] HEMATOCRIT 35.4(L) 35.5 - 44.0 % 11/20/2017 9:02 AM CDT [employer] LABORATORY SERVICES - . [facility] MCV 88.1 82.0 - 99.0 fL 11/20/2017 9:02 AM CDT [employer] LABORATORY SERVICES - [facility] MCH 28.9 27.2 - 32.6 pg 11/20/2017 9:02 AM CDT [employer] LABORATORY SERVICES - [facility] MCHC 32.8 31.5 - 35.5 g/dL 11/20/2017 9:02 AM CDT [employer] LABORATORY SERVICES - . [place] RDW 14.1 11.5 - 14.5 % 11/20/2017 9:02 AM CDT [employer] LABORATORY SERVICES - . [facility] RDW-STDEV 45.6 37.1 - 48.7 fL 11/20/2017 9:02 AM CDT [employer] LABORATORY SERVICES - [facility] PLATELETS 399(H) 140 - 350 K/uL 11/20/2017 9:02 AM CDT [employer] LABORATORY SERVICES - . [facility] MPV 9.2(L) 9.3 - 12.4 fL 11/20/2017 9:02 AM CDT [employer] LABORATORY SERVICES - [facility] NEUTROPHILS 39 % 11/20/2017 9:02 AM CDT [employer] LAB[facility]ATORY SERVICES - [facility] LYMPHOCYTES 45 % 11/20/2017 9:02 AM CDT [employer] LAB[facility]ATORY SERVICES [facility] MONOCYTES 14 % 11/20/2017 9:02 AM CDT [employer] [facility]ATORY SERVICES - [facility] EOSINOPHILS 1 % 11/20/2017 9:02 AM CDT [employer] LAB[facility]ATORY SERVICES [facility] BASOPHILS 0 % 11/20/2017 9:02 AM CDT [facility] LABORATORY SERVICES - [facility] IMMATURE GRANULOCYTES 1 % 11/20/2017 9:02 AM T [facility] LABORATORY SERVICES - [facility] Comment:IG (Immature Granulo cyte) count includes Metamyelocytes, Myelocytes, and Promyelocytes NEUTROPHIL ABSOLUTE 2.42 1.90 - 7.00 K/uL 11/20/2017 9:02 AM CDT [facility] LABORATORY SERVICES - . [facility] LYMPHOCYTE ABSOLUTE 2.80 0.70 - 4.50 K/uL 11/20/2017 9:02 AM CDT [facility] LABORATORY SERVICES - . [facility] MONOCYTE ABSOLUTE 0.86 0.10 - 1.30 K/uL 11/20/2017 9:02 AM T [facility] LABORATORY SERVICES - . [facility] EOSINOPHIL ABSOLUTE 0.09 0.00 - 0.70 K/uL 11/20/2017 9:02 AM T [facility] LABORATORY SERVICES - . [facility] BASOPHILS ABSOLUTE 0.02 0.00 - 0.20 K/uL 11/20/2017 9:02 AM T [facility] LABORATORY SERVICES - . [facility] IMMATURE GRANULOCYTES ABSOLUTE 0.03 0.00 - 0.03 K/uL 11/20/2017 9:02 AM T [facility] LABORATORY SERVICES [facility] Blood Venipuncture / Unknown 11/20/2017 6:02 AM CDT 11/20/2017 8:01 AM CDT Blake Solis MD HEMATOLOGY ORDERABLES Final Result Performing Organization Address City/State/[facility] Co de Phone Number [facility] [employer] [facility]# [id number] [address] [facility] [place] [address] * (ABNORMAL) LIPID PANEL (11/20/2017 6:02 AM CDT) [facility] CHOLESTEROL 111 <200 mg/dL 11/20/2017 9:24 AM T [facility] LABORATORY SERVICES [facility] TRIGLYCERIDE 71 <150 mg/dL 11/20/2017 9:24 AM T [facility] LABORATORY SERVICES [facility] HDL 36(L) 40 - 59 mg/dL 11/20/2017 9:24 AM T [facility] LABORATORY SERVICES [facility] LDL CALCULATED 61 <100 mg/dL 11/20/2017 9:24 AM [facility] [employer] [facility] NON-HDL CHOLESTEROL 75 <130 mg/dL 11/20/2017 9:24 AM [facility] [employer] [facility] Blood Venipuncture / Unknown 11/20/2017 6:02 AM CDT 11/20/2017 8:01 AM CDT [facility] [employer] LABORATORY SERVICES - [facility] - 11/20/2017 9:24 AM CDT TOTAL CHOLESTEROL mg/dL Desirable <200 Borderline high 200-239 High >=240 TRIGLYCERIDES mg/dL Normal <150 Borderline high 150-199 High 200-499 Very high >=500 HDL CHOLESTEROL mg/dL Low <40 Normal 40-59 Desirable >=60 NON HDL CHOLESTEROL mg/dL Optimal <130 Near Optimal 130-159 Borderline High 160-189 Very High >=190 Calculated LDL mg/dL Optimal <100 Near Optimal 100-129 Borderline High 130-159 High 160-189 Very High >=190 ATPIII Guidelines Reference Ranges for Lipid Panels (NCEP/AMA) us Blake Solis MD CHEMISTRY ORDERABLES Final R esult [facility] [employer] [facility]# [id number] [address] [facility] [place] [address] * (ABNORMAL) COMPREHENSIVE METABOLIC PANEL (11/20/2017 6:02 AM CDT) SODIUM 138 136 - 145 mmol/L 11/20/2017 9:24 AM T [employer] SERVICES - [facility] POTASSIUM 4.2 3.5 - 5.0 mmol/L 11/20/2017 9:24 AM T [employer] SERVICES - [facility] CHLORIDE 99 98 - 107 mmol/L 11/20/2017 9:24 AM T [employer] SERVICES - . [facility] CO2 29 22 - 29 mmol/L 11/20/2017 9:24 AM T [employer] SERVICES - . [facility] CALCIUM 9.5 8.6 - 10.2 mg/dL 11/20/2017 9:24 AM T [employer] LABORATORY SERVICES - . [place] BUN 8 8 - 23 mg/dL 11/20/2017 9:24 AM [employer] SERVICES - [facility] CREATININE 0.77 0.51 - 0.95 mg/dL 11/20/2017 9:24 AM [employer] SERVICES - . [facility] GLUCOSE 121(H) 74 - 99 mg/dL 11/20/2017 9:24 AM [employer] LABORATORY SERVICES - . [facility] TOTAL PROTEIN 7.5 6.7 - 8.6 g/dL 11/20/2017 9:24 AM [employer] SERVICES - . [place] ALBUMIN 3.7 3.5 - 5.2 g/dL 11/20/2017 9:24 AM [employer] SERVICES - . [facility] BILIRUBIN TOTAL 0.5 0.2 - 1.1 mg/dL 11/20/2017 9:24 AM [employer] SERVICES - . [facility] ALKALINE PHOSPHATASE 90 35 - 104 U/L 11/20/2017 9:24 AM [employer] SERVICES - . [facility] AST 19 <33 U/L 11/20/2017 9:24 AM [employer] SERVICES - [facility] ALT 11 <34 U/L 11/20/2017 9:24 AM [employer] SERVICES - [facility] GFR >60 >=60 mL/min/1.7 3 sq meter 11/20/2017 9:24 AM [employer] SERVICES - [facility] Comment: eGFR has not been validated for [...] GFR, >60 >=60 mL/min/1.7 3 sq meter 11/20/2017 9:24 AM [employer] SERVICES - [facility] ANION GAP 10 8 - 16 mmol/L 11/20/2017 9:24 AM [employer] [facility] Blood Venipuncture / Unknown 11/20/2017 6:02 AM CDT 11/20/2017 8:01 AM CDT Narrative [facility] - 11/20/2017 9:24 AM CDT Samples containing indocyanine green cause interferences on Total and/or Direct Bilirubin and must not be measured. us Blake Solis MD CHEMISTRY ORDERABLES Final R esult [facility]ORATORY [facility]# [id number] [address] [place] [address] documented in this encounter Visit Diagnoses Diagnosis Encounter for screening for diseases of the blood and blood-forming organs and certain disorders involving the immune mechanism documented in this encounter
--- OUTSIDE RECORDS SUMMARY | 2025-01-29 23:50 | XMS_ITS | Clinical Summary ---
Author Organization [facility] Address [address] [place] [address] Phone Care Team Providers Care Technology Professional Name Role Phone Unavailable Primary Care Provider [...]
--- OUTSIDE RECORDS SUMMARY | 2025-01-29 23:50 | XMS_ITS | Encounter Summary ---
Author Organization [facility] Healthcare Address [address] [place] [address] Care Team Providers Care Mental Health Worker Name Role Phone Madhu Cheema MD Primary Care Provider [phone] Dianelys Nieves MD Unavailable [phone] Jaron Lee MD Unavailable [phone] Freddie Madrid MD Unavailable [phone] Reason for Visit * Reason Onset Date Comments ready to schedule 07/27/2022 Encounter Details Date Type Department Care Team (Late st Contact Info) Description 07/27/2022 Telephone [facility] Specialty Services [address] [place] [address] Miscellaneous, Not In File ready to schedule [...] on file Legal Sex Female 11:26 PM CLOTH BOLT BANDER Gender Identity Not on file Sexual Orientation Not on file 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 Not on file Not on file Not on file documented as of this encounter Plan of Treatment Scheduled Procedures Name Priority Associated Diagnoses Date/Ti la COLONOSCOPY Open Access History of adenomatous polyp of colon COLONOSCOPY History of colonic polyps COLONOSCOPY History of colonic polyps documented as of this encounter Visit Diagnoses Not on filedocumented in this encounter Care Teams Mental Health Worker Relationship Specialty Start Date End Date Madhu Cheema MD [facility] [address] [address] PCP - General 10/04/16 Dianelys Nieves MD [address] [place] [address] Referring Physician Plastic Surgery 02/27/18 Jaron Lee MD [address] [place] [address] Consulting Physician Gastroenterology 09/02/18 Freddie Madrid MD [address] [place] [address] Consulting Physician Bone Health 05/29/22 documented as of this encounter
--- OUTSIDE RECORDS SUMMARY | 2025-01-29 23:50 | XMS_ITS ---
Author Name Auto Generated, Auto Generated Organization [facility] Address [address] [place] [address] Phone [phone] Care Team Providers Care Metal Mine Inspector Name Role Phone Blake Solis Functional Status Mental Status Allergies and Intolerances Medications Problems Reason for Referral Past Medical History
--- OUTSIDE RECORDS SUMMARY | 2025-01-29 23:50 | XMS_ITS | Encounter Summary ---
Author Organization [facility] Healthcare Address [address] [place] [address] Care Team Providers Care Dry Sander Name Role Phone Madhu Cheema MD Primary Care Provider [phone] Dianelys Nieves MD Unavailable [phone] Jaron Lee MD Unavailable [phone] Freddie Madrid MD Unavailable [phone] Encounter Details Date Type Department Care Team (Late st Contact Info) Description 07/27/[address] 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 Gender Identity Not on file Sexual Orientation [...] on filedocumented in this encounter Care Teams Dry Sander Relationship Specialty Start Date End Date Madhu Cheema MD [address] [place] [address] DR [address] [address] PCP - General 10/04/16 Dianelys Nieves MD [address] [place] [address] Referring Physician Plastic Surgery 02/27/18 Jaron Lee MD [address] [place] [address] Consulting Physician Gastroenterology 09/02/18 Freddie Madrid MD [address] [place] [address] Consulting Physician Bone Health 05/29/22 documented as of this encounter
--- OUTSIDE RECORDS SUMMARY | 2025-01-29 23:50 | XMS_ITS | Encounter Summary ---
Author Organization [facility] Address [address] [place] [address] Care Team Providers Care Roller Gold Leaf Name Role Phone Unavailable Primary Care Provider Unavailabl e Encounter Details Date Type Department Care Team (Late st Contact Info) Description 11/20/2017 Lab Requisition [facility] General Laboratory Services [address] [place] [address] Blake Solis MD [address] [place] [address] Encounter for screening for diseases [...] - 6.0 % 11/20/2017 9:19 AM CDT [facility] LABORATORY [facility] EST. AVG GLUCOSE, A1C 146 mg/dL 11/20/2017 9:19 AM CDT [facility] Powered Outcomes [facility] Blood Venipuncture / Unknown 11/20/2017 6:02 AM CDT 11/20/2017 8:01 AM CDT Blake Solis MD CHEMISTRY ORDERABLES Final R esult Performing Organization Address [facility] [address]/[facility] Co de Phone Number [facility] Powered [id number] [address] [facility] [place] [address] * (ABNORMAL) VITAMIN D 25 HYDROXY (11/20/2017 6:02 AM CDT) [facility] VITAMIN D TOTAL (25OH) 8(L) 30 - 100 ng/mL 11/20/2017 9:37 AM CDT [facility] [facility] Blood Venipuncture / Unknown 11/20/2017 6:02 AM CDT 11/20/2017 8:01 AM CDT Narrative [facility] LABORATORY [facility] - 11/20/2017 9:37 AM CDT Interpretive Data Chart: Deficient: 0 - 20 ng/mL Insufficient: 21 - 29 ng/mL Sufficient: 30 - 100 ng/mL Increased Risk of Hypercalciuria: >100 ng/mL Toxic: >150 ng/mL Blake Solis MD CHEMISTRY ORDERABLES Final R esult Performing Organization Address City/[facility] [address]/ZIP Co de Phone Number [facility] Powered Outcomes [facility] CLIA# [id number] [address] [facility] [address] * (ABNORMAL) CBC WITH DIFFERENTIAL (11/20/2017 6:02 AM CDT) [facility] WBC 6.2 4.0 - 9.8 K/uL 11/20/2017 9:02 AM CDT [facility] RBC 4.02 3.90 - 4.90 M/uL 11/20/2017 9:02 AM CDT [facility] HEMOGLOBIN 11.6(L) 11.8 - 14.8 g/dL 11/20/2017 9:02 AM CDT [facility] - [facility] [place] HEMATOCRIT 35.4(L) 35.5 - 44.0 % 11/20/2017 9:02 AM CDT [facility] - . [facility] MCV 88.1 82.0 - 99.0 fL 11/20/2017 9:02 AM CDT [facility] - [facility] MCH 28.9 27.2 - 32.6 pg 11/20/2017 9:02 AM CDT [facility] - [facility] MCHC 32.8 31.5 - 35.5 g/dL 11/20/2017 9:02 AM CDT [facility] - [facility] [place] RDW 14.1 11.5 - 14.5 % 11/20/2017 9:02 AM CDT [facility] - . [facility] RDW-STDEV 45.6 37.1 - 48.7 fL 11/20/2017 9:02 AM CDT [facility] - [facility] PLATELETS 399(H) 140 - 350 K/uL 11/20/2017 9:02 AM CDT [facility] - . [facility] MPV 9.2(L) 9.3 - 12.4 fL 11/20/2017 9:02 AM CDT [facility] NEUTROPHILS 39 % 11/20/2017 9:02 AM CDT [facility] LYMPHOCYTES 45 % 11/20/2017 9:02 AM CDT [facility] MONOCYTES 14 % 11/20/2017 9:02 AM CDT [facility] EOSINOPHILS 1 % 11/20/2017 9:02 AM CDT [facility] BASOPHILS 0 % 11/20/2017 9:02 AM CDT [facility] LABORATORY SERVICES - [facility] IMMATURE GRANULOCYTES 1 % 11/20/2017 9:02 AM T [facility] LABORATORY SERVICES - [facility] Comment:IG (Immature Granulo cyte) count includes Metamyelocytes, Myelocytes, and Promyelocytes NEUTROPHIL ABSOLUTE 2.42 1.90 - 7.00 K/uL 11/20/2017 9:02 AM CDT [facility] LABORATORY SERVICES - . [facility] LYMPHOCYTE ABSOLUTE 2.80 0.70 - 4.50 K/uL 11/20/2017 9:02 AM CDT [facility] LABORATORY SERVICES - . [facility] MONOCYTE ABSOLUTE 0.86 0.10 - 1.30 K/uL 11/20/2017 9:02 AM T [facility] LABORATORY SERVICES - . [facility] EOSINOPHIL ABSOLUTE 0.09 0.00 - 0.70 K/uL 11/20/2017 9:02 AM T [facility] LABORATORY SERVICES - . [facility] BASOPHILS ABSOLUTE 0.02 0.00 - 0.20 K/uL 11/20/2017 9:02 AM T [facility] LABORATORY SERVICES - . [facility] IMMATURE GRANULOCYTES ABSOLUTE 0.03 0.00 - 0.03 K/uL 11/20/2017 9:02 AM T [facility] LABORATORY SERVICES [facility] Blood Venipuncture / Unknown 11/20/2017 6:02 AM CDT 11/20/2017 8:01 AM CDT Blake Solis MD HEMATOLOGY ORDERABLES Final Result Performing Organization Address City/State/[facility] Co de Phone Number [facility] Powered Outcomes [facility]# [id number] [address] [place] [address] * (ABNORMAL) LIPID PANEL (11/20/2017 6:02 AM CDT) [facility] CHOLESTEROL 111 <200 mg/dL 11/20/2017 9:24 AM T [facility] LABORATORY SERVICES [facility] TRIGLYCERIDE 71 <150 mg/dL 11/20/2017 9:24 AM T [facility] LABORATORY SERVICES [facility] HDL 36(L) 40 - 59 mg/dL 11/20/2017 9:24 AM T [facility] LABORATORY SERVICES [facility] LDL CALCULATED 61 <100 mg/dL 11/20/2017 9:24 AM [facility] Outcomes [facility] NON-HDL CHOLESTEROL 75 <130 mg/dL 11/20/2017 9:24 AM [facility] Powered Outcomes [facility] Blood Venipuncture / Unknown 11/20/2017 6:02 AM CDT 11/20/2017 8:01 AM CDT [facility] LABORATORY SERVICES - [facility] - 11/20/2017 9:24 AM CDT TOTAL CHOLESTEROL [...] Solis MD CHEMISTRY ORDERABLES Final R esult [facility] [employer] [facility]# [id number] [address] [place] [address] * (ABNORMAL) COMPREHENSIVE METABOLIC PANEL (11/20/2017 6:02 AM CDT) SODIUM 138 136 - 145 mmol/L 11/20/2017 9:24 AM T [facility] SERVICES - [facility] POTASSIUM 4.2 3.5 - 5.0 mmol/L 11/20/2017 9:24 AM T [facility] SERVICES - [facility] CHLORIDE 99 98 - 107 mmol/L 11/20/2017 9:24 AM T [facility] [facility] SERVICES - . [facility] CO2 29 22 - 29 mmol/L 11/20/2017 9:24 AM T [employer] SERVICES - . [facility] CALCIUM 9.5 8.6 - 10.2 mg/dL 11/20/2017 9:24 AM [facility] LABORATORY SERVICES - [facility] [place] BUN 8 8 - 23 mg/dL 11/20/2017 9:24 AM [facility] SERVICES - [facility] CREATININE 0.77 0.51 - 0.95 mg/dL 11/20/2017 9:24 AM [facility] SERVICES - . [facility] GLUCOSE 121(H) 74 - 99 mg/dL 11/20/2017 9:24 AM [employer] LABORATORY SERVICES - . [facility] TOTAL PROTEIN 7.5 6.7 - 8.6 g/dL 11/20/2017 9:24 AM [facility] - . [place] ALBUMIN 3.7 3.5 - 5.2 g/dL 11/20/2017 9:24 AM [employer] SERVICES - . [facility] BILIRUBIN TOTAL 0.5 0.2 - 1.1 mg/dL 11/20/2017 9:24 AM [facility] SERVICES - . [facility] ALKALINE PHOSPHATASE 90 35 - 104 U/L 11/20/2017 9:24 AM [facility] SERVICES - . [place] AST 19 <33 U/L 11/20/2017 9:24 AM [facility] - [facility] [place] ALT 11 <34 U/L 11/20/2017 9:24 AM [facility] SERVICES - [facility] GFR >60 >=60 mL/min/1.7 3 sq meter 11/20/2017 9:24 AM [facility] SERVICES - [facility] Comment: eGFR has not been validated for [...] mL/min/1.7 3 sq meter 11/20/2017 9:24 AM [employer] SERVICES - [facility] ANION GAP 10 8 - 16 mmol/L 11/20/2017 9:24 AM [employer] [facility] Blood Venipuncture / Unknown 11/20/2017 6:02 AM CDT 11/20/2017 8:01 AM CDT Narrative [facility] - 11/20/2017 9:24 AM CDT Samples containing indocyanine green cause interferences on Total and/or Direct Bilirubin and must not be measured. us Blake Solis MD CHEMISTRY ORDERABLES Final R esult [facility] LABORATORY [facility]# [id number] [address] [place] [address] documented in this encounter Visit Diagnoses Diagnosis Encounter for screening for diseases of the blood and blood-forming organs and certain disorders involving the immune mechanism documented in this encounter
--- OUTSIDE RECORDS SUMMARY | 2025-01-29 23:50 | XMS_ITS ---
Author Name Auto Generated, Auto Generated Organization [facility] Address [address] [place] [address] Phone [phone] Care Team Providers Care Distribution Sales Representative Name Role Phone Blake Solis Unavailable [phone] Functional Status No Results Mental Status No [...]
--- OUTSIDE RECORDS SUMMARY | 2025-01-29 23:50 | XMS_ITS | Referral Summary ---
Author Organization [facility] Address [address] [place] [address] Care Team Providers Care Broadcast Operations Director Name Role Phone Dewey Cheema MD Primary Care Provider [phone] Dianelys Nieves MD Unavailable [phone] Jaron Lee MD Unavailable [phone] Freddie Madrid MD Unavailable [phone] Encounters Date Type Department Care Team Description 01/28/2025 Telephone [facility] [address] [place] [address] 7th [place] [address] Jerde Reynolds RN 01/08/2025 1:30 PM CDT Office Visit [address] [place] [phone] Dewey Cehema MD Essential (primary) hypertension (Primary Dx); Type 2 diabetes mellitus with other specified complication, without long-term current use of insulin (HCC); Current smoker; Stage 3a chronic kidney disease (HCC); Chronic cough; Unexplained weight loss; Night sweats; Family history of lung cancer 12/23/2024 Telephone [place] [id number] [facility] 5th [place] [address] [place] [address] Freddie Madrid MD Treatment Plan Update (Continue reclast.) 12/23/2024 4:50 PM CDT Lab [facility] Endocrinology Metabolism and Lipid [address] [place] [address] 5th [place] [address] [place] [address] Osteoporosis, unspecified osteoporosis type, unspecified pathological fracture presence 12/23/2024 2:40 PM CDT Office Visit [address] 5th [place] [address] [place] [address] Freddie Madrid MD Osteoporosis, unspecified osteoporosis type, unspecified pathological fracture presence (Primary Dx) 12/23/2024 2:10 PM CDT Clinical Support [address] 5th [place] [address] [place] [address] Osteoporosis, unspecified osteoporosis type, unspecified pathological fracture presence (Primary Dx); Osteopenia, unspecified location 11/25/2024 9:00 AM CDT Ancillary Procedure [facility] Cardiology [address] [facility] [address] [place] [phone] Cardiac pacemaker in situ; CHB (complete heart block) (HCC) 11/13/2024 Results Follow-Up [facility] Gastroenterology [address] [place] [address] 12th [address] [place] [phone] Yessy Coppola MD Surgical pathology 11/11/2024 12:32 PM CDT Anesthesia Event [facility] Digestive Disease [address] [place] [address] Mel Sánchez MD Weinzettel, Aaron M., USER INTERFACE ENGINEER 11/11/2024 12:30 PM CDT - 11/11/2024 1:15 PM CDT Surgery [facility] Digestive Disease [address] [address] Yessy Coppola MD COLON REMOVAL SNARE 11/11/2024 11:17 AM CDT - 11/11/2024 2:25 PM CDT Hospital Encounter [facility] [address] [facility] [address] [place] [address] Yessy Coppola MD History of adenomatous polyp of colon Discharge Disposition: Discharge to home or self care 11/05/2024 Telephone [facility] Gastroenterology [address] [facility] 12th [place] [address] [place] [phone] Rosalba Quach LPN GI Procedure/Anti-Coagu lant 11/04/2024 Telephone [facility] Specialty Services [address] [place] [address] Elham Ball, DIANA GI Preprocedure from Last [...] monitoring Assessment & Plan (06/16/2024 2:45 PM PAPER CONSERVATOR): Mildly worse when last checked. May be [...] chantix.. Assessment & Plan (06/16/2024 2:33 PM PAPER CONSERVATOR): Smoking cessation counseling: We discussed the importance [...] cessation Assessment & Plan (06/04/2023 1:56 PM PAPER CONSERVATOR): Smoking cessation counseling: We discussed the importance [...] cessation Assessment & Plan (06/23/2019 1:31 PM PAPER CONSERVATOR): Smoking cessation counseling: We discussed the importance [...] cessation Assessment & Plan (09/02/2018 11:54 AM PAPER CONSERVATOR): Smoking cessation counseling: We discussed the importance [...] months. Assessment & Plan (09/22/2024 2:02 PM PAPER CONSERVATOR): Diabetes is controlled. Continue current treatment regimen. Dietary recommendations for ADA diet. Counselled on Regular aerobic exercise. Diabetes will be reassessed in 6 months. Assessment & Plan (06/16/2024 2:46 PM PAPER CONSERVATOR): Diabetes is stable. Continue current treatment regimen. [...] months. Assessment & Plan (06/04/2023 2:22 PM PAPER CONSERVATOR): Diabetes is stable. Continue current treatment regimen. [...] months. Assessment & Plan (09/02/2018 11:41 AM PAPER CONSERVATOR): Diabetes is controlled. Continue current treatment regimen. [...] appointment. Assessment & Plan (09/22/2024 1:53 PM PAPER CONSERVATOR): Hypertension is stable Continue current treatment regimen. Regular aerobic exercise. Continue current medications. Blood pressure will be reassessed at the next regular appointment. Assessment & Plan (06/16/2024 2:45 PM PAPER CONSERVATOR): HTN is worsening. Discussed options. Add amlodipine 2.5mg every day. Recheck in 2-3 months. Assessment & Plan (12/20/2023 2:55 PM CDT): Hypertension is stable Continue current treatment regimen. Regular aerobic exercise. Stop smoking. Continue current medications. Blood pressure will be reassessed at the next regular appointment. Assessment & Plan (06/04/2023 1:56 PM PAPER CONSERVATOR): Hypertension is stable Continue current treatment regimen. [...] appointment. Assessment & Plan (06/23/2019 1:30 PM PAPER CONSERVATOR): Hypertension is stable Continue current treatment regimen. [...] months. Assessment & Plan (09/02/2018 11:51 AM PAPER CONSERVATOR): Hypertension is mild. Weight loss. Regular aerobic [...] 11/16/2017 Assessment & Plan (06/16/2024 2:50 PM PAPER CONSERVATOR): Up to date on DEXA. Followed by [facility]. Counseled on regular exercise. Assessment & Plan (06/04/2023 2:18 PM PAPER CONSERVATOR): Up to date on DEXA. Followed by [facility]. Counseled on regular exercise. Assessment & Plan (05/29/2022 1:38 PM CDT): Up to date on DEXA. Followed by [facility]. Assessment & Plan (05/23/2021 1:26 PM CDT): Last DEXA 08/23/20. Chronic idiopathic constipation 11/16/2017 Assessment & Plan (06/04/2023 2:14 PM PAPER CONSERVATOR): Chronic. Benign abdominal exam. Check labs. Advised metamucil once daily. Osteoarthritis of cervical spine 12/30/2014 History of ischemic stroke 12/29/2014 Assessment & Plan (06/16/2024 2:30 PM PAPER CONSERVATOR): Optimize CV risks. Residual from CVA including gait and speech. Assessment & Plan (06/09/2024 7:22 AM PAPER CONSERVATOR): >>ASSESSMENT AND PLAN FOR PERSONAL HISTORY OF TRANSIENT ISCHEMIC ATTACK (TIA), AND CEREBRAL INFARCTION WITHOUT RESIDUAL DEFICITS WRITTEN ON 05/29/2022 1:43 PM BY DEWEY CHEEMA MD Paperwork for Disabled parking permit filled out. History of adenomatous polyp of colon 04/23/2012 Assessment & Plan (06/16/2024 2:33 PM PAPER CONSERVATOR): Up to date on colonsocpy Assessment & Plan (06/04/2023 2:07 PM PAPER CONSERVATOR): I placed referral for colonoscopy 11/27/22, family has tried calling to schedule but has not received call back. Pure hypercholesterolemia 12/08/2011 Overview (06/04/2018): Assessment & Plan (06/16/2024 2:30 PM PAPER CONSERVATOR): I discussed ASCVD risk. I spent 15 [...] regimen. Assessment & Plan (06/04/2023 2:22 PM PAPER CONSERVATOR): I discussed ASCVD risk. I spent 15 [...] regimen. Assessment & Plan (09/02/2018 11:26 AM PAPER CONSERVATOR): I spent 15 minutes counseling her on [...] etc). Assessment & Plan (09/02/2018 11:41 AM PAPER CONSERVATOR): Obesity is mild. Discussed the patient's BMI. [...] on file Legal Sex Female 11:26 PM PAPER CONSERVATOR Gender Identity Not on file Sexual Orientation [...] CDT LIPID PANEL Routine 06/16/2024 3:47 PM PAPER CONSERVATOR Essential (primary) hypertension Type 2 diabetes mellitus with other specified complication, without long-term current use of insulin (HCC) Pure hypercholesterolemia ALBUMIN CREATININE RATIO, URINE Routine 06/16/2024 3:47 PM PAPER CONSERVATOR Type 2 diabetes mellitus with other specified complication, without long-term current use of insulin (HCC) SCREENING MAMMOGRAM BILATERAL W JOHN Schedule Routine, Read Routine (OP Routine) 06/16/2024 2:07 PM PAPER CONSERVATOR Encounter for screening mammogram for malignant neoplasm [...] Vitamin D 63.1 20.0 - 100.0 ng/mL [facility] Comment: VITAMIN D DEFICIENCY = LESS THAN or EQUAL TO 20 ng/mL VITAMIN D INSUFFICIENCY = 21 - 29 ng/mL VITAMIN D SUFFICIENT = 30-100 ng/mL Blood 12/23/2024 3:51 PM CDT 12/23/2024 4:11 PM CDT Ernie Zafar MD LAB BLOOD ORDERABLES Final Resul t Performing Organization Address City/[facility]/ZIP Co de Phone Number [facility] * PTH (12/23/2024 3:51 PM CDT) Pathologist [facility] Parathyroid Hormone 41.7 11.6 - 58.8 pg/mL [facility] Comment:PLEASE NOTE: REFEREN CE RANGE UPDATED EFFECTIVE 10/28/24 Blood 12/23/2024 3:51 PM CDT 12/23/2024 4:11 PM CDT Ernie Zafar MD LAB BLOOD ORDERABLES Final Resul t [facility] * Comprehensive metabolic panel (12/23/2024 3:51 PM CDT) [facility] Total Protein 7.8 6.1 - 8.4 g/dL [...] Bone mineral density was performed on a [employer] Discovery Densitometer. Based on machine cross-calibration and [...] by the International Society of Clinical Densitometry. [id number] us Freddie Madrid MD IMG DXA PROCEDURES Final Result * DEVICE CHECK - REMOTE (11/25/2024 9:24 AM CDT) Anatomical Region Laterality Modality Other Narrative 12/02/2024 1:28 PM CDT [employer]otronik Amvia Edge Dual Pacemaker. Dx; CHB. DOI 06/19/2024-Gordy. [employer]ronik remote. Routine DDD Pacemaker Remote. Transmission attached. Battery status: Ok, 100% remaining battery life to MORENO. Stable lead impedances, pacing and sensing thresholds. Presenting rhythm: FOX RAISER. AP-0%, FOX RAISER-100%. No AT/AF episodes noted. No Ventricular high [...] Biopsy) 11/11/2024 1:07 PM CDT Narrative PATHOLOGY [facility] - 11/12/2024 6:53 PM CDT EPIC results best viewed via link to PDF [facility] N[facility]i [facility] Surgical Pathology [facility] [place] [address] Note to Patients: This report may contain [...] Gender: F : 1955 (Age: 69) Address: [address] [place] [address] Hospital #: [id number] Taken:11/11/2024 Received:11/11/2024 Reported: 11/12/2024 Patient Type: [facility] Service: Gastro Location: Physician(s): Marvin Villa MD Thomas J Bartholet, M.D. Diagnosis: A. Colon, cecum, polypectomy: - Fragments of tubular adenoma. B. Colon, sigmoid, abnormal mucosa, biopsy: - Colonic mucosa with prolapse associated changes. - Negative for dysplasia. [facility]/11/12/2024 11:33 By this signature, I attest that [...] Surgical Pathology and Flow Cytometry Departments at [facility] as part of an ongoing senior software quality engineer program and in compliance with federally mandated [...] Surgical Pathology and Flow Cytometry Departments of [facility]. It has not been cleared or approved by the U. S. Food and Drug Administration. IMAGES AND SCANNED DOCUMENTS, IF INCLUDED, ONLY VIEWABLE IN PDF VERSION OF REPORT Yessy Huang MD LAB PATHOLOGY MACIE CRUZ Final Result PATHOLOGY [facility] 3rd Floor [place], [place] [phone] * Colonoscopy (11/11/2024 11:56 AM CDT) Anatomical Region Laterality Modality Other Narrative Procedure Note Yessy Huang MD - 11/11/2024 11:56 AM CDT GI ENDOSCOPY [facility] Patient Name: Filomena Nunez Procedure Date: 11/11/2024 11:56 AM Date of : 1955 Admit Type: Outpatient Age: 69 Gender: Female Attending MD: Marvin Henriquez Room: [facility] ENDOSCOPY ROOM 3 Note Status: Finalized [...] scope was passed under direct vision.The CF [id number] endoscope was introduced through the anus and advanced to the cecum, identified by appendiceal orifice and ileocecal valve. The colonoscopy was performed without difficulty. The patient tolerated the procedure well. The qualityof the bowel preparation was evaluated using the BBPS ([place] Bowel Preparation Scale) with scores of:Right Colon [...] business days, please contact my office at [phone]. Attending Participation: I was present and participated [...] - DEVICE Final Result Performing Organization Address City/[facility] Co de Phone Number [facility] [place] [address] * Albumin Creatinine Ratio, Urine (06/16/2024 3:47 PM PAPER CONSERVATOR) Creatinine ur 172.7 Not Estab. mg/dL [facility] - 01 Microalbumin, ur 14.0 Not Estab. ug/mL [facility] - 01 Microalbumin/cre at ratio 8 0 - 29 mg/g creat [facility] - 01 Comment: Normal: 0 - 29 Moderately increased: 30 - 300 Severely increased: >300 Urine 06/16/2024 3:47 PM PAPER CONSERVATOR 06/16/2024 Narrative [facility] - 06/17/2024 12:12 PM PAPER CONSERVATOR Performed at: [facility] [id number] Extraction Supervisor: Surendra Vale PhD, Phone: [phone] us Dewey Cheema MD LAB URINE ORDERABLES Kate l Result [facility] - 01 * Lipid panel (06/16/2024 3:47 PM PAPER CONSERVATOR) Cholesterol 166 100 - 199 mg/dL [facility] - 01 Triglycerides 83 0 - 149 mg/dL [facility] - 01 HDL Cholesterol 53 >39 mg/dL [facility] - 01 VLDL 16 5 - 40 mg/dL [facility] - 01 LDL, calculated 97 0 - 99 mg/dL [facility] - 01 Blood 06/16/2024 3:47 PM PAPER CONSERVATOR 06/16/2024 Narrative [facility] - 06/17/2024 8:19 AM PAPER CONSERVATOR Performed at: - [address] [id number] Extraction Supervisor: Surendra Vale PhD, Phone: [phone] us Dewey Cheema MD LAB BLOOD ORDERABLES Kate l Result Performing Organization Address [facility] Co de Phone Number [facility] - 01 * Screening Mammogram Bilateral W John (06/16/2024 2:07 PM PAPER CONSERVATOR) Anatomical Region Laterality Modality Breast Bilateral Mammography Narrative 06/17/2024 4:05 PM PAPER CONSERVATOR Mammogram Technique: Bilateral Digital Breast Tomosynthesis, Bilateral C-view 2D Screening mammogram. Views obtained: bilateral craniocaudal and bilateral mediolateral oblique. Computer Aided Detection was performed. Mammogram Findings: The present examination has been compared to prior imaging studies performed at [facility] on 10/04/2016, 06/23/2019 and 08/15/2021. The [...] compared to prior imaging studies performed at [facility] on 10/04/2016, 06/23/2019 and 08/15/2021. The [...] Most Recently Relevant to Health Maintenance Insurance [facility] [employer] CHOICE MEDICARE PPO [employer] CHOICE MEDICARE PPO [employer] CHOICE MEDICARE PPO Advance Directives For more information, please contact: [phone] * Full Code (Latest Code Status on File) Date Activated Date Inactivated Comments 11/11/2024 11:37 AM 11/11/2024 6:25 PM * Full Code Date Activated Date Inactivated Comments 10/15/2023 2:27 PM 10/15/2023 9:31 PM Care Teams Broadcast Operations Director Relationship Specialty Start Date End Date Dewey Cheema MD [facility] [address] [place] [address] [id number] PCP - General 10/04/16 Dianelys Nieves MD [address] [place] [address] Referring Physician Plastic Surgery 02/27/18 Jaron Lee MD [address] [place] [address] Consulting Physician Gastroenterology 09/02/18 Freddie Madrid MD [address] [place] [address] Consulting Physician [facility] 05/29/22
--- OUTSIDE RECORDS SUMMARY | 2025-01-29 23:50 | XMS_ITS | Clinical Summary ---
Author Organization [facility] al Address [address] [place] [address] Care Team Providers Care Work Order Detailer Name Role Phone Dewey Cheema MD Primary Care Provider [phone] Dianelys Nieves MD Unavailable [phone] Jaron Lee MD Unavailable [phone] Freddie Madrid MD Unavailable [phone] Allergies Active Allergy Reactions Criticality Noted [...] monitoring Assessment & Plan (06/16/2024 2:45 PM RAIL CAR DRIVER): Mildly worse when last checked. May be [...] chantix.. Assessment & Plan (06/16/2024 2:33 PM RAIL CAR DRIVER): Smoking cessation counseling: We discussed the importance [...] cessation Assessment & Plan (06/04/2023 1:56 PM RAIL CAR DRIVER): Smoking cessation counseling: We discussed the importance [...] cessation Assessment & Plan (06/23/2019 1:31 PM RAIL CAR DRIVER): Smoking cessation counseling: We discussed the importance [...] cessation Assessment & Plan (09/02/2018 11:54 AM RAIL CAR DRIVER): Smoking cessation counseling: We discussed the importance [...] months. Assessment & Plan (09/22/2024 2:02 PM RAIL CAR DRIVER): Diabetes is controlled. Continue current treatment regimen. Dietary recommendations for ADA diet. Counselled on Regular aerobic exercise. Diabetes will be reassessed in 6 months. Assessment & Plan (06/16/2024 2:46 PM RAIL CAR DRIVER): Diabetes is stable. Continue current treatment regimen. [...] months. Assessment & Plan (06/04/2023 2:22 PM RAIL CAR DRIVER): Diabetes is stable. Continue current treatment regimen. [...] months. Assessment & Plan (09/02/2018 11:41 AM RAIL CAR DRIVER): Diabetes is controlled. Continue current treatment regimen. [...] appointment. Assessment & Plan (09/22/2024 1:53 PM RAIL CAR DRIVER): Hypertension is stable Continue current treatment regimen. Regular aerobic exercise. Continue current medications. Blood pressure will be reassessed at the next regular appointment. Assessment & Plan (06/16/2024 2:45 PM RAIL CAR DRIVER): HTN is worsening. Discussed options. Add amlodipine 2.5mg every day. Recheck in 2-3 months. Assessment & Plan (12/20/2023 2:55 PM CDT): Hypertension is stable Continue current treatment regimen. Regular aerobic exercise. Stop smoking. Continue current medications. Blood pressure will be reassessed at the next regular appointment. Assessment & Plan (06/04/2023 1:56 PM RAIL CAR DRIVER): Hypertension is stable Continue current treatment regimen. [...] appointment. Assessment & Plan (06/23/2019 1:30 PM RAIL CAR DRIVER): Hypertension is stable Continue current treatment regimen. [...] months. Assessment & Plan (09/02/2018 11:51 AM RAIL CAR DRIVER): Hypertension is mild. Weight loss. Regular aerobic [...] 11/16/2017 Assessment & Plan (06/16/2024 2:50 PM RAIL CAR DRIVER): Up to date on DEXA. Followed by [facility]. Counseled on regular exercise. Assessment & Plan (06/04/2023 2:18 PM RAIL CAR DRIVER): Up to date on DEXA. Followed by [facility]. Counseled on regular exercise. Assessment & Plan (05/29/2022 1:38 PM CDT): Up to date on DEXA. Followed by [facility]. Assessment & Plan (05/23/2021 1:26 PM CDT): Last DEXA 08/23/20. Chronic idiopathic constipation 11/16/2017 Assessment & Plan (06/04/2023 2:14 PM RAIL CAR DRIVER): Chronic. Benign abdominal exam. Check labs. Advised metamucil once daily. Osteoarthritis of cervical spine 12/30/2014 History of ischemic stroke 12/29/2014 Assessment & Plan (06/16/2024 2:30 PM RAIL CAR DRIVER): Optimize CV risks. Residual from CVA including gait and speech. Assessment & Plan (06/09/2024 7:22 AM RAIL CAR DRIVER): >>ASSESSMENT AND PLAN FOR PERSONAL HISTORY OF TRANSIENT ISCHEMIC ATTACK (TIA), AND CEREBRAL INFARCTION WITHOUT RESIDUAL DEFICITS WRITTEN ON 05/29/2022 1:43 PM BY DEWEY CHEEMA MD Paperwork for Disabled parking permit filled out. History of adenomatous polyp of colon 04/23/2012 Assessment & Plan (06/16/2024 2:33 PM RAIL CAR DRIVER): Up to date on colonsocpy Assessment & Plan (06/04/2023 2:07 PM RAIL CAR DRIVER): I placed referral for colonoscopy 11/27/22, family has tried calling to schedule but has not received call back. Pure hypercholesterolemia 12/08/2011 Overview (06/04/2018): Assessment & Plan (06/16/2024 2:30 PM RAIL CAR DRIVER): I discussed ASCVD risk. I spent 15 [...] regimen. Assessment & Plan (06/04/2023 2:22 PM RAIL CAR DRIVER): I discussed ASCVD risk. I spent 15 [...] regimen. Assessment & Plan (09/02/2018 11:26 AM RAIL CAR DRIVER): I spent 15 minutes counseling her on [...] etc). Assessment & Plan (09/02/2018 11:41 AM RAIL CAR DRIVER): Obesity is mild. Discussed the patient's BMI. The BMI is above average; BMI management plan is completed. General weight loss/lifestyle modification strategies discussed (elicit support from others; identify saboteurs; non-food rewards, etc). Encounters Date Type Department Care Team Description 01/28/2025 Telephone [facility] Specialty Infusion Center [address] 7th [place] [address] Jered Reynolds RN 01/08/2025 1:30 PM CDT Office Visit [address] [place] [phone] Dewey Cheema MD Essential (primary) hypertension (Primary Dx); Type 2 diabetes mellitus with other specified complication, without long-term current use of insulin (HCC); Current smoker; Stage 3a chronic kidney disease (HCC); Chronic cough; Unexplained weight loss; Night sweats; Family history of lung cancer 12/23/2024 4:50 PM CDT Lab [facility] Endocrinology Metabolism and Lipid [address] 5th [place] [address] [place] [address] Osteoporosis, unspecified osteoporosis type, unspecified pathological fracture presence 12/23/2024 2:40 PM CDT Office Visit [facility] [address] 5th [place] [address] [place] [address] Freddie Madrid MD Osteoporosis, unspecified osteoporosis type, unspecified pathological fracture presence (Primary Dx) 12/23/2024 2:10 PM CDT Clinical Support [facility] [address] [place] [address] 5th [place] [address] [place] [phone] Osteoporosis, unspecified osteoporosis type, unspecified pathological fracture presence (Primary Dx); Osteopenia, unspecified location 12/23/[address] 5th [place] [address] [place] [phone] Freddie Madrid MD Treatment Plan Update (Continue reclast.) 11/25/2024 9:00 AM CDT Ancillary Procedure [facility] Cardiology [facility] [address] [place], [place] [phone] Cardiac pacemaker in situ; CHB (complete heart block) (HCC) 11/13/2024 Results Follow-Up [facility] Gastroenterology [address] [place] [address] 12th [place] [address] [place] [address] Yessy Coppola MD Surgical pathology 11/11/2024 12:32 PM CDT Anesthesia Event [facility] [address] [place] [phone] Mel Sánchez MD Weinzettel, Aaron M., TRAINING ASSISTANT 11/11/2024 12:30 PM CDT - 11/11/2024 1:15 PM CDT Surgery [facility] [address] [place] [phone] Yessy Coppola MD COLON REMOVAL SNARE 11/11/2024 11:17 AM CDT - 11/11/2024 2:25 PM CDT Hospital Encounter [facility] [address] [address] Yessy Coppola MD History of adenomatous polyp of colon Discharge Disposition: Discharge to home or self care 11/05/2024 Telephone [facility] Gastroenterology [address] 12th [place] [address] [place] [address] Rosalba Quach LPN GI Procedure/Anti-Coagu lant 11/04/2024 Telephone [facility] Specialty Services [address] [place] [address] Elham Ball, RN GI Preprocedure from Last [...] 05/17/2020 Surgical History Surgery Date Site/Laterality Comments [place] ARTHROSCOPY KNEE DIAGNOST IC W/WO SYNOVIAL BX SPX Arthroscopy Knee Left - (Added by TW Conv) [place] DELIVERY ONLY Section - (Added by TW [...] on file Legal Sex Female 11:26 PM RAIL CAR DRIVER Gender Identity Not on file Sexual Orientation [...] CDT LIPID PANEL Routine 06/16/2024 3:47 PM RAIL CAR DRIVER Essential (primary) hypertension Type 2 diabetes mellitus with other specified complication, without long-term current use of insulin (HCC) Pure hypercholesterolemia ALBUMIN CREATININE RATIO, URINE Routine 06/16/2024 3:47 PM RAIL CAR DRIVER Type 2 diabetes mellitus with other specified complication, without long-term current use of insulin (HCC) SCREENING MAMMOGRAM BILATERAL W JOHN Schedule Routine, Read Routine (OP Routine) 06/16/2024 2:07 PM RAIL CAR DRIVER Encounter for screening mammogram for malignant neoplasm of breast HEPATITIS C SCREENING Routine 02/27/2018 DIABETES EYE EXAM Routine 08/20/2017 from Last 3 Months or Most Recently Relevant to Health Maintenance Results * (ABNORMAL) POCT hemoglobin A1c (01/08/2025 1:20 PM CDT) Pathologist [facility] Hemoglobin A1C, POC 6.5(A) 4.0 - 5.6 % Blood 01/08/2025 1:20 PM CDT Dewey Cheema MD POINT OF CARE TEST ORDERA BLES Final Result * Vitamin D 25 hydroxy (12/23/2024 3:51 PM CDT) Pathologist [facility] Vitamin D 63.1 20.0 - 100.0 ng/mL [facility] Comment: VITAMIN D DEFICIENCY = LESS THAN or EQUAL TO 20 ng/mL VITAMIN D INSUFFICIENCY = 21 - 29 ng/mL VITAMIN D SUFFICIENT = 30-100 ng/mL Blood 12/23/2024 3:51 PM CDT 12/23/2024 4:11 PM CDT Ernie Zafar MD LAB BLOOD ORDERABLES Final Resul t Performing Organization Address City/[facility]/ZIP Co de Phone Number [facility] * PTH (12/23/2024 3:51 PM CDT) Pathologist [facility] Parathyroid Hormone 41.7 11.6 - 58.8 pg/mL [facility] Comment:PLEASE NOTE: REFEREN CE RANGE UPDATED EFFECTIVE 10/28/24 Blood 12/23/2024 3:51 PM CDT 12/23/2024 4:11 PM CDT Ernie Zafar MD LAB BLOOD ORDERABLES Final Resul t [facility] * Comprehensive metabolic panel (12/23/2024 3:51 PM CDT) [facility] Total Protein 7.8 6.1 - 8.4 [...] Bone mineral density was performed on a Missing[employer] Discovery Densitometer. Based on machine cross-calibration and [...] by the International Society of Clinical Densitometry. [id number] Freddie Madrid MD IMG DXA PROCEDURES Final Result * DEVICE CHECK - REMOTE (11/25/2024 9:24 AM CDT) Anatomical Region Laterality Modality Other Narrative 12/02/2024 1:28 PM CDT Biotronik Amvia Edge Dual Pacemaker. Dx; CHB. DOI 06/19/2024-Gordy. Biotronik remote. Routine DDD Pacemaker Remote. Transmission attached. Battery status: Ok, 100% remaining battery life to MORENO. Stable lead impedances, pacing and sensing thresholds. Presenting rhythm: GEAR CUTTING MACHINE SET UP OPERATOR. AP-0%, GEAR CUTTING MACHINE SET UP OPERATOR-100%. No AT/AF episodes noted. No Ventricular [...] Biopsy) 11/11/2024 1:07 PM CDT Narrative PATHOLOGY [facility] - 11/12/2024 6:53 PM CDT EPIC results best viewed via link to PDF [facility] [place] [address] Note to Patients: This report may contain [...] Gender: F : 1955 (Age: 69) Address: [address] [place] [phone] Hospital #: [id number] Taken:11/11/2024 Received:11/11/2024 Reported: 11/12/2024 Patient Type: [facility] Service: Gastro Location: Physician(s): Marvin Villa MD Thomas J Bartholet, M.D. Diagnosis: A. Colon, cecum, polypectomy: - Fragments of tubular adenoma. B. Colon, sigmoid, abnormal mucosa, biopsy: - Colonic mucosa with prolapse associated changes. - Negative for dysplasia. [facility]/11/12/2024 11:33 By this signature, I attest that the above diagnosis is based upon my personal examination of the slides(and/or other material indicated in the diagnosis). Ciaran Carvalho MD, PHD Report Electronically Reviewed and Signed Out By Ciraan Carvalho MD, PHD 11/12/2024 18:53:00 History: The [...] Surgical Pathology and Flow Cytometry Departments at [facility] as part of an ongoing quality assurance supervisor body program and in compliance with federally mandated [...] Surgical Pathology and Flow Cytometry Departments of [facility]. It has not been cleared or approved by the U. S. Food and Drug Administration. IMAGES AND SCANNED DOCUMENTS, IF INCLUDED, ONLY VIEWABLE IN PDF VERSION OF REPORT Yessy Huang MD LAB PATHOLOGY MACIE CRUZ Final Result PATHOLOGY [facility] 3rd Floor [place], [place] [phone] * Colonoscopy (11/11/2024 11:56 AM CDT) Anatomical Region Laterality Modality Other Narrative Procedure Note Yessy Huang MD - 11/11/2024 11:56 AM CDT GI ENDOSCOPY [facility] Patient Name: Filomena Nunez Procedure Date: 11/11/2024 11:56 AM Date of : 1955 Admit Type: Outpatient Age: 69 Gender: Female Attending MD: Marvin Henriquez Room: [facility] ENDOSCOPY ROOM 3 Note Status: Finalized [...] scope was passed under direct vision.The CF [id number] endoscope was introduced through the anus and advanced to the cecum, identified by appendiceal orifice and ileocecal valve. The colonoscopy was performed without difficulty. The patient tolerated the procedure well. The qualityof the bowel preparation was evaluated using the BBPS (Elsberry Bowel Preparation Scale) with scores of:Right Colon [...] business days, please contact my office at [phone]. Attending Participation: I was present and participated [...] - DEVICE Final Result Performing Organization Address City/[facility] Co nm Phone Number SUHA [facility] Department [place] [address] * Albumin Creatinine Ratio, Urine (06/16/2024 3:47 PM RAIL CAR DRIVER) Creatinine ur 172.7 Not Estab. mg/dL [facility] - 01 Microalbumin, ur 14.0 Not Estab. ug/mL [facility] - 01 Microalbumin/cre at ratio 8 0 - 29 mg/g creat [facility] - 01 Comment: Normal: 0 - 29 Moderately increased: 30 - 300 Severely increased: >300 Urine 06/16/2024 3:47 PM RAIL CAR DRIVER 06/16/2024 Narrative [facility] - 06/17/2024 12:12 PM RAIL CAR DRIVER Performed at: [facility] Lab[address] [id number] Turn Operator: Surendra Vale PhD, Phone: [phone] us Dewey Cheema MD LAB URINE ORDERABLES Kate l Result Performing Organization Address City/State/[facility] Co de Phone Number [facility] - 01 * Lipid panel (06/16/2024 3:47 PM RAIL CAR DRIVER) Cholesterol 166 100 - 199 mg/dL [facility] - 01 Triglycerides 83 0 - 149 mg/dL [facility] - 01 HDL Cholesterol 53 >39 mg/dL [facility] - 01 VLDL 16 5 - 40 mg/dL [facility] - 01 LDL, calculated 97 0 - 99 mg/dL [facility] - 01 Blood 06/16/2024 3:47 PM RAIL CAR DRIVER 06/16/2024 Narrative [facility] - 06/17/2024 8:19 AM RAIL CAR DRIVER Performed at: [address] [id number] Turn Operator: Surendra Vale PhD, Phone: [phone] us Dewey Cheema MD LAB BLOOD ORDERABLES Kate l Result Performing Organization Address [facility] Co de Phone Number [facility] - 01 * Screening Mammogram Bilateral W John (06/16/2024 2:07 PM RAIL CAR DRIVER) Anatomical Region Laterality Modality Breast Bilateral Mammography Narrative 06/17/2024 4:05 PM RAIL CAR DRIVER Mammogram Technique: Bilateral Digital Breast Tomosynthesis, Bilateral C-view 2D Screening mammogram. Views obtained: bilateral craniocaudal and bilateral mediolateral oblique. Computer Aided Detection was performed. Mammogram Findings: The present examination has been compared to prior imaging studies performed at [facility] at [facility] on 10/04/2016, 06/23/2019 and 08/15/2021. [...] compared to prior imaging studies performed at [facility] at [facility] on 10/04/2016, 06/23/2019 and 08/15/2021. The breasts are heterogeneously dense, which may obscure small masses. There is no suspicious abnormality in either breast. Impression: There is no mammographic evidence of malignancy. Annual screening mammography is recommended. OVERALL FINAL ASSESSMENT: BI-RADS CATEGORY 1: Negative. Dewey Cheema MD IMG MAMMO PROCEDURES Kate l Result * HEPATITIS C SCREENING (02/27/2018) HEP C Normal Result [facility] Historical Provider HEALTH MAINTENANCE Final Result * DIABETES EYE EXAM (08/20/2017) Diabetic Eye Exam Abnormal Result [facility] Historical Provider HEALTH MAINTENANCE Final Result from Last 3 Months or Most Recently Relevant to Health Maintenance Insurance [facility] REF [employer] CHOICE MEDICARE PPO [employer] CHOICE MEDICARE PPO [employer] CHOICE MEDICARE PPO Advance Directives For more information, please contact: [phone] * Full Code (Latest Code Status on File) Date Activated Date Inactivated Comments 11/11/2024 11:37 AM 11/11/2024 6:25 PM * Full Code Date Activated Date Inactivated Comments 10/15/2023 2:27 PM 10/15/2023 9:31 PM Care Teams Work Order Detailer Relationship Specialty Start Date End Date Dewey Cheema MD [facility] [address] [place] [address] [address] PCP - General 10/04/16 Dianelys Nieves MD [address] [place] [address] Referring Physician Plastic Surgery 02/27/18 Jaron Lee MD [address] [place] [address] Consulting Physician Gastroenterology 09/02/18 Freddie Madrid MD [address] [place] [address] Consulting Physician [facility] 05/29/22
--- OUTSIDE RECORDS SUMMARY | 2025-01-29 23:50 | XMS_ITS | Encounter Summary ---
Author Organization [employer] Address [address] [place] [address] Care Team Providers Care Territory Business Manager Name Role Phone Unavailable Primary Care Provider Unavailabl e Encounter Details Date Type Department Care Team (Late st Contact Info) Description 11/23/2017 Lab Requisition [facility] General Laboratory Services [address] [place] [address] Blake Solis MD [address] [place] [address] Encounter for general adult medical [...] Solis MD CHEMISTRY ORDERABLES Final R esult [facility] LABORATORY SERVICES [facility]# [id number] [address] [place] [address] * (ABNORMAL) PROTEIN ELECTROPHORESIS, SERUM (11/23/2017 5:41 AM CDT) TOTAL PROTEIN 6.9 6.4 - 8.3 g/dL 11/28/2017 11:00 AM T [facility] LABORATORY SERVICES [facility] ALBUMIN SPE 3.15(L) 3.50 - 5.20 g/dL 11/28/2017 11:00 AM T [facility] LABORATORY SERVICES - . [place] ALPHA 1 GLOBULIN SPE 0.36 0.21 - 0.45 g/dL 11/28/2017 11:00 AM T [facility] LABORATORY [facility] [place] ALPHA 2 GLOBULIN SPE 1.15(H) 0.50 - 1.01 g/dL 11/28/2017 11:00 AM T [facility] LABORATORY SERVICES - . [place] BETA GLOBULIN 1.02 0.60 - 1.05 g/dL 11/28/2017 11:00 AM T [facility] LABORATORY [facility] - [facility] [place] GAMMA GLOBULIN 1.22 0.60 - 1.33 g/dL 11/28/2017 11:00 AM T [facility] LABORATORY SERVICES - [facility] [place] SPE INTERP See Interpretation Below 11/28/2017 11:00 AM CDT [facility] LABORATORY [facility] Comment:Decreased albumin wi th increased alpha-2 globulins; [...] esult [facility] CLIA# [id number] [address] [place] [address] * PHOSPHORUS (11/23/2017 5:41 AM CDT) PHOSPHORUS 4.5 2.5 - 4.5 mg/dL 11/23/2017 9:[address] [facility] Blood Venipuncture / Unknown 11/23/2017 5:41 AM CDT 11/23/2017 7:14 AM CDT Blake Solis MD CHEMISTRY ORDERABLES Final R esult [facility]# [id number] [address] [place] [address] * MAGNESIUM LEVEL (11/23/2017 5:41 AM CDT) MAGNESIUM 2.0 1.6 - 2.4 mg/dL 11/23/2017 9:[address] [facility] Blood Venipuncture / Unknown 11/23/2017 5:41 AM CDT 11/23/2017 7:14 AM CDT Blake Solis MD CHEMISTRY ORDERABLES Final R esult [facility]# [id number] [address] [place] [address] * TSH (11/23/2017 5:41 AM CDT) TSH 2.80 0.27 - 4.20 uIU/mL 11/23/2017 9:01 AM CDT [facility] [employer] [facility] Blood Venipuncture / Unknown 11/23/2017 5:41 AM CDT 11/23/2017 7:14 AM CDT Blake Solis MD CHEMISTRY ORDERABLES Final R esult Performing Organization Address [facility]/ZIP Co de Phone Number [facility] [employer] [facility]# [id number] [address] [place] [address] * (ABNORMAL) VITAMIN D 25 HYDROXY (11/23/2017 5:41 AM CDT) VITAMIN D TOTAL (25OH) 11(L) 30 - 100 ng/mL 11/23/2017 9:19 AM CDT [facility] [employer] [facility] Blood Venipuncture / Unknown 11/23/2017 5:41 AM CDT 11/23/2017 7:14 AM CDT Narrative [facility] [employer] [facility] - 11/23/2017 9:19 AM CDT Interpretive Data Chart: Deficient: 0 - 20 ng/mL Insufficient: 21 - 29 ng/mL Sufficient: 30 - 100 ng/mL Increased Risk of Hypercalciuria: >100 ng/mL Toxic: >150 ng/mL Blake Solis MD CHEMISTRY ORDERABLES Final R esult Performing Organization Address City/[facility]/ZIP Co de Phone Number [facility]# [id number] [address] [place] [address] * PTH INTACT (11/23/2017 5:41 AM CDT) PTH INTACT 39.9 15.0 - 65.0 pg/mL 11/23/2017 9:19 AM [facility] [employer] LABORATORY SERVICES - [facility] [place] Blood Venipuncture / Unknown 11/23/2017 5:41 AM CDT 11/23/2017 7:14 AM CDT Blake Solis MD CHEMISTRY ORDERABLES Final R esult [employer] SERVICES [facility] CLIA# [id number] [address] [facility] [place] [address] * (ABNORMAL) COMPREHENSIVE METABOLIC PANEL (11/23/2017 5:41 AM CDT) SODIUM 139 136 - 145 mmol/L 11/23/2017 9:01 AM [facility] [employer] LABORATORY SERVICES - . [place] POTASSIUM 4.2 3.5 - 5.0 mmol/L 11/23/2017 9:01 AM [facility] [employer] LABORATORY SERVICES - [facility] [place] CHLORIDE 98 98 - 107 mmol/L 11/23/2017 9:01 AM [facility] [employer] LABORATORY SERVICES - [facility] CO2 27 22 - 29 mmol/L 11/23/2017 9:01 AM [facility] [employer] LABORATORY SERVICES - [facility] CALCIUM 9.5 8.6 - 10.2 mg/dL 11/23/2017 9:01 AM [facility] [employer] LABORATORY SERVICES - [facility] BUN 11 8 - 23 mg/dL 11/23/2017 9:01 AM [facility] [employer] LABORATORY SERVICES - [facility] CREATININE 0.80 0.51 - 0.95 mg/dL 11/23/2017 9:01 AM [facility] [employer] LABORATORY SERVICES - [facility] GLUCOSE 117(H) 74 - 99 mg/dL 11/23/2017 9:01 AM [facility] [employer] LABORATORY SERVICES - [facility] TOTAL PROTEIN 7.4 6.7 - 8.6 g/dL 11/23/2017 9:01 AM [facility] [employer] LABORATORY SERVICES - [facility] ALBUMIN 3.6 3.5 - 5.2 g/dL 11/23/2017 9:01 AM CDT [facility]ORATORY SERVICES [facility] BILIRUBIN TOTAL 0.4 0.2 - 1.1 mg/dL 11/23/2017 9:01 AM [facility] LABORATORY [facility] ALKALINE PHOSPHATASE 91 35 - 104 U/L 11/23/2017 9:01 AM [facility] LABORATORY [facility] AST 11 <33 U/L 11/23/2017 9:01 AM [facility] LABORATORY [facility] ALT 12 <34 U/L 11/23/2017 9:01 AM [facility] GFR >60 >=60 mL/min/1.7 3 sq meter 11/23/2017 9:01 AM [facility] LABORATORY [facility] Comment: eGFR has not been validated [...] mL/min/1.7 3 sq meter 11/23/2017 9:01 AM [facility] LABORATORY [facility] ANION GAP 14 8 - 16 mmol/L 11/23/2017 9:01 AM [facility] Blood Venipuncture / Unknown 11/23/2017 5:41 AM CDT 11/23/2017 7:14 AM T [facility] LABORATORY SERVICES [facility] - 11/23/2017 9:01 AM CDT Samples containing indocyanine green cause interferences on Total and/or Direct Bilirubin and must not be measured. us Blake Solis MD CHEMISTRY ORDERABLES Final R esult [facility] [employer] [facility] CLIA# [id number] [address] [facility] [place] [place] [address] * (ABNORMAL) CBC WITH DIFFERENTIAL (11/23/2017 5:41 AM CDT) [facility] WBC 6.1 4.0 - 9.8 K/uL 11/23/2017 8:32 AM CDT [employer] LABORATORY SERVICES - [facility] RBC 4.02 3.90 - 4.90 M/uL 11/23/2017 8:32 AM CDT [employer] LABORATORY SERVICES - . [facility] HEMOGLOBIN 11.4(L) 11.8 - 14.8 g/dL 11/23/2017 8:32 AM CDT [employer] LABORATORY SERVICES - [facility] HEMATOCRIT 35.7 35.5 - 44.0 % 11/23/2017 8:32 AM CDT [employer] LABORATORY SERVICES - . [place] MCV 88.8 82.0 - 99.0 fL 11/23/2017 8:32 AM CDT [employer] LABORATORY SERVICES - . [facility] MCH 28.4 27.2 - 32.6 pg 11/23/2017 8:32 AM CDT [employer] LABORATORY SERVICES - [facility] MCHC 31.9 31.5 - 35.5 g/dL 11/23/2017 8:32 AM CDT [employer] LABORATORY SERVICES - . [facility] RDW 13.9 11.5 - 14.5 % 11/23/2017 8:32 AM CDT [employer] LABORATORY SERVICES - . [facility] RDW-STDEV 45.3 37.1 - 48.7 fL 11/23/2017 8:32 AM CDT [employer] LABORATORY SERVICES - . [facility] PLATELETS 394(H) 140 - 350 K/uL 11/23/2017 8:32 AM CDT [employer] LABORATORY SERVICES - . [place] MPV 9.2(L) 9.3 - 12.4 fL 11/23/2017 8:32 AM CDT [employer] LABORATORY SERVICES - [facility] NEUTROPHILS 33 % 11/23/2017 8:32 AM CDT [employer] LABORATORY SERVICES - [facility] LYMPHOCYTES 51 % 11/23/2017 8:32 AM CDT [employer] LABORATORY SERVICES - [facility] MONOCYTES 13 % 11/23/2017 8:32 AM CDT [employer] LABORATORY SERVICES - [facility] EOSINOPHILS 2 % 11/23/2017 8:32 AM CDT [employer] LABORATORY SERVICES - [facility] BASOPHILS 1 % 11/23/2017 8:32 AM CDT [employer] LABORATORY SERVICES - . [facility] IMMATURE GRANULOCYTES 0 % 11/23/2017 8:32 AM CDT [facility] LABORATORY SERVICES - [facility] NEUTROPHIL ABSOLUTE 2.01 1.90 - 7.00 K/uL 11/23/2017 8:32 AM CDT [facility] LABORATORY SERVICES - [facility] LYMPHOCYTE ABSOLUTE 3.13 0.70 - 4.50 K/uL 11/23/2017 8:32 AM CDT [facility] LABORATORY SERVICES - [facility] MONOCYTE ABSOLUTE 0.77 0.10 - 1.30 K/uL 11/23/2017 8:32 AM CDT [facility] LABORATORY SERVICES - [facility] EOSINOPHIL ABSOLUTE 0.12 0.00 - 0.70 K/uL 11/23/2017 8:32 AM CDT [facility] LABORATORY SERVICES - [facility] BASOPHILS ABSOLUTE 0.04 0.00 - 0.20 K/uL 11/23/2017 8:32 AM CDT [facility] LABORATORY SERVICES - [facility] IMMATURE GRANULOCYTES ABSOLUTE 0.02 0.00 - 0.03 K/uL 11/23/2017 8:32 AM CDT [facility] LABORATORY SERVICES - [facility] Blood Venipuncture / Unknown 11/23/2017 5:41 AM CDT 11/23/2017 7:14 AM CDT Blake Solis MD HEMATOLOGY ORDERABLES Final Result [facility] LABORATORY SERVICES - [facility]# [id number] [address] [facility] [address] documented in this encounter Visit Diagnoses Diagnosis Encounter for general adult medical examination without abnormal findings Routine general medical examination at a health care facility documented in this encounter
--- OUTSIDE RECORDS SUMMARY | 2025-01-29 23:50 | XMS_ITS | Encounter Summary ---
Author Organization [facility] Address [address] [place] [address] Phone Care Team Providers Care Hr Administrative Assistant Name Role Phone Madhu Cheema MD Primary Care Provider [phone] Dianelys Nieves MD Unavailable [phone] Jaron Lee MD Unavailable [phone] Freddie Madrid MD Unavailable [phone] Encounter Details Date Type Department Care Team (Late st Contact Info) Description 07/21/[address] [address] Madhu Cheema MD [address] [place] [address] [address] [place] [address] Social History Tobacco Use Types [...] on file 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 Gender Identity Not on file Sexual Orientation [...] on filedocumented in this encounter Care Teams Hr Administrative Assistant Relationship Specialty Start Date End Date Madhu Cheema MD [facility] [address] [place] [address] PCP - General 10/04/16 Dianelys Nieves MD [address] [place] [address] Referring Physician Plastic Surgery 02/27/18 Jaron Lee MD [address] [place] [address] Consulting Physician Gastroenterology 09/02/18 Freddie Madrid MD [address] [place] [address] Consulting Physician Bone Health 05/29/22 documented as of this encounter
--- OUTSIDE RECORDS SUMMARY | 2025-01-29 23:50 | XMS_ITS | Encounter Summary ---
Author Organization [facility] Healthcare Address [address] [place] [address] Care Team Providers Care Bladder Trimmer Name Role Phone Madhu Cheema MD Primary Care Provider [phone] Dianelys Nieves MD Unavailable [phone] Jaron Lee MD Unavailable [phone] Freddie Madrid MD Unavailable [phone] Encounter Details Date Type Department Care Team (Late st Contact Info) Description 01/28/2025 Telephone [facility] [address] [facility] Advanced Medicine 7th [place] [address] Jered Reynolds, RN Social History Tobacco Use [...] on file 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 Gender Identity Not on file Sexual Orientation [...] on filedocumented in this encounter Care Teams Bladder Trimmer Relationship Specialty Start Date End Date Madhu Cheema MD [address] [place] [address] DR Nora SIMON [address] [place] [address] PCP - General 10/04/16 Dianelys Nieves MD [address] [place] [address] Referring Physician Plastic Surgery 02/27/18 Jaron Lee MD [address] [place] [address] Consulting Physician Gastroenterology 09/02/18 Freddie Madrid MD [address] [place] [address] Consulting Physician Bone Health 05/29/22 documented as of this encounter
--- OUTSIDE RECORDS SUMMARY | 2025-01-29 23:50 | XMS_ITS | Encounter Summary ---
Author Organization [facility] Healthcare Address [address] [place] [address] Care Team Providers Care Clean Rice Broker Name Role Phone Madhu Cheema MD Primary Care Provider [phone] Dianelys Nieves MD Unavailable Jaron Lee MD Unavailable [phone] Freddie Madrid MD Unavailable [phone] Encounter Details Date Type Department Care Team (Late st Contact Info) Description 06/18/2024 Orders Only [facility] Health Information Management [address] [place] [address] Tanvir Kaminski MD [address] [address] Social History Tobacco Use Types [...] on file 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 Gender Identity Not on file Sexual [...] on filedocumented in this encounter Care Teams Clean Rice Broker Relationship Specialty Start Date End Date Madhu Cheema MD [facility] [address] [place] [address] PCP - General 10/04/16 Dianelys Nieves MD [address] [place] [address] Referring Physician Plastic Surgery 02/27/18 Jaron Lee MD [address] [place] [address] Consulting Physician Gastroenterology 09/02/18 Freddie Madrid MD [address] [place] [address] Consulting Physician Bone Health 05/29/22 documented as of this encounter
== END 2025-01-29 22:30 | disposition left against medical advice (07) ==
LOC: ANHED 23:48
DX: R55 Syncope and collapse (principal)
CPT/HCPCS: 99199

== ENCOUNTER 2025-06-25 18:08 | Emergency (ER) | payer MEDICARE, SELFPAY ==
--- NOTE | ~2025-06-25 | XR_ITS ---
EXAM/PROCEDURE: XR chest 2V HISTORY: Syncope COMPARISON: June 20, 2024 TECHNIQUE: Two view(s) of the chest. FINDINGS: Pacing device unchanged. LUNGS: Clear of acute processes. PLEURAL SPACES: Clear. No evidence of fluid or pneumothorax. HEART/ MEDIASTINUM: There is cardiomegaly now seen. SOFT TISSUES: No significant findings. BONES: No acute osseous abnormality. One of the midthoracic vertebral bodies, probably T8, appears sclerotic. There is been interval complete loss of the disc space inferior to this, there is sclerosis of the superior vertebral endplate just inferior to this, thought to surround T8-T9. IMPRESSION: No acute findings. Cardiomegaly. One thoracic vertebral segment, probably T8, appears sclerotic. This could at least partially be secondary to degenerative disc disease. There can be further evaluation as an outpatient with cross- sectional imaging. Reviewed, dictated and finalized at location A. FIRM RECEPTIONIST IMPRESSION: No acute findings. Cardiomegaly. One thoracic vertebral segment, probably T8, a ppears sclerotic. This could at least partially be secondary to degenerative di sc disease. There can be further evaluation as an outpatient with cross-section al imaging.
[2025-06-25 17:55] VITALS: BP 115/58; PULSE 77; RESP 21; TEMP 36.4; O2SAT 100
--- NOTE | 2025-06-25 18:06 | ECG_ITS ---
Test Date: 2025-06-25 18:05:22 Measurements Intervals Reading Rate: 76 P: 63 MT: 175 QRS: -81 QRSD: 174 T: 78 QT: 455 QTc: 512 Interpretive Statements ELECTRONIC VENTRICULAR PACEMAKER SINUS RHYTHM WITH ATRIAL SENSING AND VENTRICULAR PACING ABNORMAL ECG ABNORMAL RHYTHM ECG Electronically Signed On 06-26-2025 13:09:45 DIRECTOR SHOPPER MARKETING by Tanvir Kaminski M.D.
--- NOTE | 2025-06-25 18:33 | ED.SYNCOPE ---
HPI - Syncope General Chief Complaint: Syncope Stated Complaint: syncopal Time Seen by Provider: 06/25/25 18:11 Source: patient and family Mode of arrival: EMS Limitations: no limitations History of Present Illness HPI narrative: This is a 70 year old female that presents to the ER for a syncopal episode today. Reports she was seated at the table, started to feel lightheaded and passed out. Reports history of syncopal episodes. Denies chest pain or shortness of breath. Denies any symptoms currently. Related Data Home Medications ?Medication ?Instructions ?Recorded ?Confirmed ?Last Taken ?Type amlodipine 2.5 mg tablet 2.5 mg PO DAILY 06/18/24 06/18/24 06/17/24 History atorvastatin 20 mg tablet 20 mg PO DAILY 06/18/24 06/18/24 Unknown History chlorthalidone 25 mg tablet 25 mg PO DAILY 06/18/24 06/18/24 06/17/24 History clopidogrel 75 mg tablet 75 mg PO DAILY 06/18/24 06/18/24 06/17/24 History empagliflozin 10 mg tablet 10 mg PO DAILY 06/18/24 06/18/24 06/17/24 History (Jardiance) ramipril 10 mg capsule 10 mg PO DAILY 06/18/24 06/18/24 06/17/24 History Allergies Allergy/AdvReac Type Severity Reaction Status Date / Time aspirin Allergy Unknown Anaphylaxis Verified 06/18/24 00:37 codeine Allergy Unknown Anaphylaxis Verified 06/18/24 00:37 latex Allergy Unknown Anaphylaxis Verified 06/18/24 00:37 Penicillins Allergy Unknown Anaphylaxis Verified 06/18/24 00:37 Review of Systems Review of Systems: All systems reviewed & are unremarkable except as noted in HPI and below PMFSH Family History Family History (Updated 06/18/24 @ 00:28 by Tracy Winston RN) Father Hypertension Cerebrovascular accident History of blood clots Sibling Diabetes mellitus Seizure History of blood clots Mother Colon cancer Social History Social History Smoking packs per day: 0.5 Smoking cigarettes per day: 10.0 Years smoked: 50 Smoking pack-years: 25.00 Smoking status: Current every day smoker Tobacco type: cigarettes Alcohol intake: current Substance use type: marijuana Lack of Transportation: No Lack of Food: Never True Current Housing: I Have Housing Concerned About Future Housing: No Difficulty Paying Gas/Electric Bills: No Difficulty Paying for Meds: No Currently Unemployed: No Education: High School Diploma/GED Difficulty w/ Childcare or Family Care: No Spiritual care concerns: No Exam Narrative: GENERAL: Elderly, well-nourished, and in no acute distress. HEAD: Normocephalic, atraumatic. EYES: PERRLA and EOMI. ENT: Nares clear, no rhinorrhea or epistaxis. Mucous membranes moist. Oropharynx without tonsillar hypertrophy exudate or other lesions. NECK: Supple. No adenopathy or masses. CHEST: Clear to auscultation. No respiratory distress. No wheezes rales or rhonchi HEART: Regular rate and rhythm. No murmur heard. Normal peripheral pulses. EXTREMITIES: Normal range of motion. No edema. Strength equal in bilateral upper and lower extremities (5/5) SKIN: Warm, dry, no rash. NEURO: No focal deficits. Alert and oriented x3. PSYCH: Normal mood and affect Course Vital Signs Vital signs: Vital Signs Temperature 97.6 F 06/25/25 17:55 Pulse Rate 77 06/25/25 17:55 Respiratory Rate 21 H 06/25/25 17:55 Blood Pressure 115/58 L 06/25/25 17:55 Pulse Oximetry 100 06/25/25 17:55 Oxygen Delivery Room Air 06/25/25 17:55 Temperature 97.6 F 06/25/25 17:55 Pulse Rate 77 06/25/25 17:55 Respiratory Rate 21 H 06/25/25 17:55 Blood Pressure 115/58 L 06/25/25 17:55 Pulse Oximetry 100 06/25/25 17:55 Oxygen Delivery Room Air 06/25/25 17:55 MDM - Syncope MDM Narrative Medical decision making narrative: Patient presents to the ER after a syncopal episode. She is neurologically intact. Vitals are stable. CBC without concerning findings. Metabolic panel with maybe mild dehydration. Patient lightly hydrated in the ED. Urine without evidence of infection. Patient has a pacemaker in place. Baseline troponin is negative. Patient was updated on her workup. We discussed further inpatient evaluation/management versus close outpatient follow-up. Patient would like to be discharged. She is feeling better. 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 06/25/25 18:37 06/25/25 18:37 Labs: Lab Results 06/25/25 06/25/25 Range/Units 18:37 19:00 WBC 5.4 (4.5-10.0) K/mm3 RBC 3.91 L (4.2-5.4) M/mm3 Hgb 12.0 (12.0-15.0) g/dL Hct 36.3 L (37.0-47.0) % MCV 92.8 (80-100) fl MCH 30.7 (26-34) pg MCHC 33.1 (32-36) g/dl RDW 15.4 H (11.5-14.5) % Plt Count 275 (150-375) k/mm3 MPV 9.0 (7.4-10.4) fl Immature Gran % (Auto) 0.2 (0-0.5) % Neut % (Auto) 41.5 L (45.5-73.1) % Lymph % (Auto) 43.5 (18.3-44.2) % Slope % (Auto) 12.9 H (2.6-8.5) % Eos % (Auto) 1.5 (0-4.4) % Baso % (Auto) 0.4 (0.2-1.2) % Lymph # (Auto) 2.36 (0.9-3.2) K/mm3 Slope # (Auto) 0.7 H (0.1-0.6) K/mm3 Eos # (Auto) 0.1 (0-0.3) K/mm3 Baso # (Auto) 0.0 (0.0-0.1) K/mm3 Abs Immat Gran (auto) 0.01 (0.00-0.031) K/mm3 Absolute Neuts (auto) 2.3 (1.3-6.7) K/mm3 Absolute Nucleated RBC 0.000 (0.0-0.012) K/mm3 Nucleated RBC % 0.0 (0.0-0.2) % Sodium 136 L (137-145) mmol/L Potassium 3.5 (3.4-5.0) mmol/L Chloride 104 (98-107) mmol/L Carbon Dioxide 26 (22-30) mmol/L Anion Gap 6 (4-12) mmol/L BUN 21 H (7-17) mg/dL Creatinine 1.14 H (0.7-1.0) mg/dL Estim Creat Clear Calc Not Reportable Estimated GFR 47 L (59 - ) Glucose 216 H (65-110) mg/dL Calcium 9.6 (8.4-10.2) mg/dL Total Bilirubin 0.4 (0.2-1.3) mg/dL AST 27 (14-36) U/L ALT 21 (6-35) U/L Alkaline Phosphatase 74 (38-126) U/L Troponin I < 0.012 (0.000-0.034) ng/mL Total Protein 7.3 (6.3-8.2) g/dL Albumin 3.8 (3.5-5.1) g/dL Urine Color Dark yellow (Yellow) Urine Appearance Clear (Clear) Urine pH 5.5 (5.0-9.0) Ur Specific [place] 1.023 (1.001-1.035) Urine Protein Negative (Negative) mg/dL Urine Glucose (UA) 3+ H (Negative) mg/dL Urine Ketones Negative (Negative) mg/dL Ur Blood (Man) Negative (Negative) Urine Nitrate Negative (Negative) Urine Bilirubin Negative (Negative) Urine Urobilinogen 0.2 (<2.0) mg/dL Leukocyte Esterase Rfl Negative (Negative) ZULEIMA/UL Imaging Data Radiologist's impression: ITS Impressions Chest X-Ray 06/25/25 19:03 IMPRESSION: No acute findings. Cardiomegaly. One thoracic vertebral segment, probably T8, appears sclerotic. This could at least partially be secondary to degenerative disc disease. There can be further evaluation as an outpatient with cross-sectional imaging. ECG Data EKG #1: ECG completion date: 06/25/25 EKG Interpretation: normal rate, sinus rhythm and other (ventricular pacemaker) Critical Care Time Critical Care Time Critical Care Time: No Discharge Plan Discharge Clinical Impression: Syncope Qualifiers: Syncope type: unspecified Qualified Code(s): R55 - Syncope and collapse Patient Disposition: Home Condition: Improved Instructions: Syncope (ED) Additional Instructions: Return to the emergency department if you experience fever, chest pain, shortness of breath, you pass out, weakness, numbness, or any other symptoms that are concerning to you. Follow up with your horses or mules teamster Patient Language: Uruguayan Prescriptions: No Action atorvastatin 20 mg tablet 20 mg PO DAILY amlodipine 2.5 mg tablet 2.5 mg PO DAILY clopidogrel 75 mg tablet 75 mg PO DAILY chlorthalidone 25 mg tablet 25 mg PO DAILY ramipril 10 mg capsule 10 mg PO DAILY Jardiance 10 mg tablet 10 mg PO DAILY Follow-up/Referrals: UNKNOWN,DOCTOR [Non-Staff]
[2025-06-25 18:44] LABS: Hematocrit 36.3 % (37.0-47.0); Hemoglobin 12.0 g/dL (12.0-15.0); Immature Granulocyte Percent A 0.2 % (0-0.5); Lymphocytes Absolute Auto 2.36 K/mm3 (0.9-3.2); Mean Corpuscular HGB Conc 33.1 g/dl (32-36); Mean Corpuscular Hemoglobin 30.7 pg (26-34); Mean Corpuscular Volume 92.8 fl (80-100); Nucleated Red Blood Cells Absolute Auto 0.000 K/mm3 (0.0-0.012); Nucleated Red Blood Cells Perc 0.0 % (0.0-0.2); Platelet Count Result 275 k/mm3 (150-375); Red Blood Count 3.91 M/mm3 (4.2-5.4); White Blood Count 5.4 K/mm3 (4.5-10.0)
[2025-06-25] MEDS: SODIUM CHLORIDE 0.9% IV 500 ML 999 ML IV CONT (18:44)
[2025-06-25 18:55] LABS: Alanine Aminotransferase 21 U/L (6-35); Albumin Level 3.8 g/dL (3.5-5.1); Alkaline Phosphatase 74 U/L (38-126); Anion Gap 6 mmol/L (4-12); Aspartate Amino Transferase 27 U/L (14-36); Bilirubin,Total 0.4 mg/dL (0.2-1.3); Blood Urea Nitrogen 21 mg/dL (7-17); Calcium 9.6 mg/dL (8.4-10.2); Carbon Dioxide 26 mmol/L (22-30); Chloride 104 mmol/L (98-107); Estimated Glomerular Filt Rate 47; Glucose 216 mg/dL (65-110); Potassium 3.5 mmol/L (3.4-5.0); Sodium 136 mmol/L (137-145); Total Protein 7.3 g/dL (6.3-8.2)
[2025-06-25 19:07] LABS: Add Urine Microscopic? YES; Appearance Urine Clear (Clear); Glucose Urine UA 3+ mg/dL (Negative); Leukocyte Esterase Ur Negative LEU/UL (Negative); Nitrate Urine Negative (Negative); Specific Grav Ur 1.023 (1.001-1.035)
[2025-06-25 20:31] LABS: Troponin I < 0.012 ng/mL (0.000-0.034)
--- NOTE | 2025-06-25 20:45 | PC.NURSE ---
orthostatics 2034 lying - 77 121/57 2037 sitting - 81 115/65 1 stand - 84 139/96 no complaints. no distress. pt requesting discharge
[2025-06-25 21:04] VITALS: BP 131/78; PULSE 78; RESP 18; O2SAT 100
== END 2025-06-25 21:05 | disposition home or self-care (01) ==
PROVIDERS: Emergency Provider Physician Assistant
DX: R55 Syncope and collapse (principal); F17.210 Nicotine dependence, cigarettes, uncomplicated; Z95.0 Presence of cardiac pacemaker; I51.7 Cardiomegaly; R93.7 Abnormal findings on diagnostic imaging of other parts of musculoskeletal system
CPT/HCPCS: 36415; 71046; 80053; 81001; 84484; 85025; 93005; 96360; 99284; J7040